=== PATIENT | female | born 1955 | race Caucasian/White ===

== ENCOUNTER 2020-03-07 11:03 | Day surgery (SDC) | payer MEDICARE, SELFPAY ==
[2020-03-02 11:00] VITALS: BMI 35.1
--- NOTE | 2020-03-06 12:45 | HO.ANESPROP2 ---
Documented by User: Elisa Collins 03/06/20 12:45 HPI - Anesthesia Eval Consult details Narrative: 64yo F for Colonoscopy PMFSH Past Medical History Medical History Anxiety disorder Arthritis Asthma Depression Elevated cholesterol GERD (gastroesophageal reflux disease) History of diverticulitis HTN (hypertension) Hx of gout Surgical History Surgical History H/O colonoscopy History of colectomy Hx of appendectomy Hx of bilateral oophorectomy Hx of ovarian cystectomy Social History Social History Smoking Status: Current every day smoker Packs Per Day: 0.5 Cigarettes Per Day: 10.0 Smoked in Last 30 Days: Yes Advance Directives Information Provided: No Meds Allergies Allergy/AdvReac Type Severity Reaction Status Date / Time ondansetron [From ZOFRAN] Allergy Severe HIVES Verified 03/02/20 11:06 codeine [Codeine] AdvReac Intermediate UPSET Verified 03/02/20 11:06 STOMACH Penicillins AdvReac Intermediate UPSET Verified 03/02/20 11:06 STOMACH Home Medications Medication Instructions Recorded Confirmed Type albuterol sulfate 2 puff PO Q4-6H PRN 03/02/20 03/02/20 History atorvastatin 1 tab PO BEDTIME 03/02/20 03/02/20 History bupropion HCl 1 tab PO BID 03/02/20 03/02/20 History fluticasone furoate-vilanterol 1 puff PO DAILY 03/02/20 03/07/20 History [Breo Ellipta] lisinopril 1 tab PO DAILY 03/02/20 03/02/20 History omeprazole 1 cap PO DAILY 03/02/20 03/02/20 History sertraline 2 tab PO DAILY 03/02/20 03/02/20 History sucralfate 1 tab PO BID 03/02/20 03/02/20 History Exam Exam Date and Time: March 06, 2020 1245 Height,Weight and Vital Signs: Height 5 ft 2 in Weight 87.09 kg Assessment and Plan Assessment Anesthesia Assessment: Chart Reviewed Documented by User: Angely Mackenzie 03/07/20 11:44 PMFSH Past Medical History Medical History Anxiety disorder Arthritis Asthma Depression Elevated cholesterol GERD (gastroesophageal reflux disease) History of diverticulitis HTN (hypertension) Hx of gout Surgical History Surgical History H/O colonoscopy History of colectomy Hx of appendectomy Hx of bilateral oophorectomy Hx of ovarian cystectomy Social History Social History Smoking Status: Current every day smoker Packs Per Day: 0.5 Cigarettes Per Day: 10.0 Smoked in Last 30 Days: Yes Advance Directives Information Provided: No Meds Allergies Allergy/AdvReac Type Severity Reaction Status Date / Time ondansetron [From ZOFRAN] Allergy Severe HIVES Verified 03/02/20 11:06 codeine [Codeine] AdvReac Intermediate UPSET Verified 03/02/20 11:06 STOMACH Penicillins AdvReac Intermediate UPSET Verified 03/02/20 11:06 STOMACH Home Medications Medication Instructions Recorded Confirmed Type albuterol sulfate 2 puff PO Q4-6H PRN 03/02/20 03/02/20 History atorvastatin 1 tab PO BEDTIME 03/02/20 03/02/20 History bupropion HCl 1 tab PO BID 03/02/20 03/02/20 History fluticasone furoate-vilanterol 1 puff PO DAILY 03/02/20 03/07/20 History [Breo Ellipta] lisinopril 1 tab PO DAILY 03/02/20 03/02/20 History omeprazole 1 cap PO DAILY 03/02/20 03/02/20 History sertraline 2 tab PO DAILY 03/02/20 03/02/20 History sucralfate 1 tab PO BID 03/02/20 03/02/20 History
[2020-03-07] MEDS: Lactated Ringers 1,000 ML 100 ML IVCONT (11:39)
[2020-03-07 11:46] VITALS: BP 158/84; PULSE 76; RESP 18; TEMP 36.5
--- NOTE | 2020-03-07 11:57 | MHC.SHP ---
Pre-Procedural Eval Section A The History & Physical has been completed within 30 days and I have reviewed it.: No Section B Chief Complaint: Screening Details of Present Illness: Colon cancer screening, hx of colon polyps Relevant Social History: Tobacco Use Present Medications: see Short Stay Collaborative assessment Medical History: Significant History (Depression. Hypertension. Hypercholesterolemia. Anxiety. Asthma. Gout. ) History of Previous Operations: Relevant previous surgery/procedure and date(s) (ovarian cyst resection appendectomy laparoscopic sigmoid colectomy 2008 oopherectomy b/l elbow surgery for tennis elbow wisdom teeth extraction excision of cyst (multiple) over 5yrs [address] Rockwell?- colonoscopy ) Allergies: Allergies Allergy/AdvReac Type Severity Reaction Status Date / Time ondansetron [From ZOFRAN] Allergy Severe HIVES Verified 03/02/20 11:06 codeine [Codeine] AdvReac Intermediate UPSET Verified 03/02/20 11:06 STOMACH Penicillins AdvReac Intermediate UPSET Verified 03/02/20 11:06 STOMACH Review of Systems Sugical H&P ROS: Negative: Constitution, Cardiovascular, Respiratory and Gastrointestinal Exam Surgical H&P Exam: Normal: Heart, Normal: Lungs, Normal: Extremities and Normal: Abdomen Plan Diagnosis/Plan: Unchanged Patient has been examined and remains a candidate for the planned procedure
--- NOTE | 2020-03-07 12:11 | P.BOP_ITS ---
Brief Operative Note Date of procedure: 03/07/20 Pre-op diagnosis: colon cancer screening, history of colon polyps Post-op diagnosis: other (Colon polyps, diverticulosis, hemorrhoids) Procedure: COLONOSCOPY TILL CECUM WITH BIOPSIES Consent: Indications for the procedure and potential complications of bleeding, perforation, reaction to medications and missed diagnosis were discussed with the patient and informed consent was obtained. Instrument: Olympus PCF H 190 L variable stiffness pediatric colonoscope Monitoring: Vital signs and clinical assessment, intermittent blood pressure monitoring, continuous EKG monitoring, Pulse oximetry and Carbon Dioxide monitoring were done throughout the procedure. Colon withdrawl time was 18 minutes. Procedure: The patient was placed in the left lateral decubitis position and pre-procedure medications were administered. After a digital rectal examination of the ano-rectum, the video colonoscope was inserted into the rectum and advanced through the colon to the cecum. The colonoscope was slowly withdrawn in a retrograde panoramic fashion and the colon mucosa was carefully examined including a retroflexed view of the rectum. Findings and interventions are described below. Procedure Difficulty: Without difficulty Findings: Terminal Ileum: Not evaluated Cecum: Nodular appearing mucosa in the cecum without recurrent polyps - random biopsies were obtained. Ascending Colon: Normal Transverse Colon: Normal Descending Colon: Moderate diverticulosis Sigmoid Colon: Moderate diverticulosis Rectum: A few diminutive polyps, 2 were removed by cold biopsy. Ano-rectum: Moderate internal hemorrhoids Colon preparation: Good after copious irrigation Impression and Post Procedure Diagnosis: Colonoscopy Findings: Two diminutive polyps removed Nodular appearing mucosa in the cecum without recurrent polyps - random biopsies were obtained. Moderate diverticulosis seen in the left colon Moderate hemorrhoids on retroflexed exam. Plan: Await pathology results Patient has an appointment on 05/01/20 in the [facility] with Mary Jane Farrell-. Repeat Colonoscopy interval based on path results - in 1-2 years if polyps are adenomatous and 5 years if polyps are hyperplastic. She will need surgery if cecal biopsies showe presence of adenomatous tissue. Above findings were reviewed with the patient and colon polyps and diverticulosis handouts were given in the discharge area Surgeon: Haim Dueñas MD Anesthesia: MAC (MILLER [place] & Dr Weiss) Interactive Media Director: Bernardo Farris Estimated blood loss (mL): 0 Pathology: other (A. Cecum, B. Rectal polyps) Condition: stable Disposition: PACU
[2020-03-07 12:54] VITALS: BP 120/64; PULSE 64; RESP 16; TEMP 36.6; O2SAT 96
[2020-03-07 13:14] VITALS: BP 125/67; PULSE 58; RESP 17; TEMP 36.6; O2SAT 94
== END 2020-03-07 14:19 | disposition home or self-care (01) ==
PROVIDERS: PCP Internal Medicine; Visit Provider Internal Medicine Gastroenterology
PROC: 0DJD8ZZ Inspection of Lower Intestinal Tract, Via Natural or Artificial Opening Endoscopic (ICD-10-PCS; CPT 45378; principal; 2020-03-07 11:40)
DX: Z12.11 Encounter for screening for malignant neoplasm of colon (principal); Z86.010 Personal history of colon polyps; K63.5 Polyp of colon; K62.1 Rectal polyp; K57.30 Diverticulosis of large intestine without perforation or abscess without bleeding; K64.8 Other hemorrhoids; K21.9 Gastro-esophageal reflux disease without esophagitis; I10 Essential (primary) hypertension; E78.00 Pure hypercholesterolemia, unspecified; J45.909 Unspecified asthma, uncomplicated; Z79.51 Long term (current) use of inhaled steroids; Z79.899 Other long term (current) drug therapy; Z88.0 Allergy status to penicillin; Z88.8 Allergy status to other drugs, medicaments and biological substances; F17.210 Nicotine dependence, cigarettes, uncomplicated
CPT/HCPCS: 45380; 88305; J2250

== ENCOUNTER 2020-04-05 11:42 | Outpatient (REF) | payer MEDICARE, SELFPAY ==
--- NOTE | 2020-04-05 11:53 | XR_ITS ---
EXAMINATION: XR FOOT, LEFT CLINICAL INFORMATION: Left foot pain COMPARISON: None TECHNIQUE: AP, lateral, and oblique views of the left foot. FINDINGS: There is no acute or healing fracture, dislocation, destructive process. There is posterior calcaneal spur with some mineralization in the region of distal Achilles. The retrocalcaneal recess is preserved. There is dorsal spurring talonavicular region. The medial navicular is elongated. The midfoot and forefoot shows no focal joint narrowing or erosive change. There is some benign coarse periarticular mineralization adjacent to the plantar medial base fourth toe proximal phalanx. There are some linear mineralization in region of intraosseous soft tissues and/or flexor tendon. XR/XR foot LT min 3V IMPRESSION: 1. No acute or healing fracture. 2. Spurring at Achilles insertion posterior calcaneus. 3. Dorsal spurring talonavicular region. 4. Benign mineralization in region of flexor tendon and periarticular fourth MTP. No joint narrowing or erosive change.
== END 2020-04-05 11:43 | disposition home or self-care (01) ==
LOC: HO.XRAY 11:42
PROVIDERS: PCP Internal Medicine; Visit Provider Internal Medicine
DX: M79.672 Pain in left foot (principal)
CPT/HCPCS: 73630

== ENCOUNTER 2020-04-20 13:16 | Outpatient (REF) | payer MEDICARE, MEDICAID, SELFPAY ==
--- NOTE | 2020-04-20 13:21 | US_ITS ---
EXAMINATION: DUPLEX DOPPLER EVALUATION OF THE ARTERIAL SYSTEM LEFT LOWER EXTREMITY CLINICAL INFORMATION: Peripheral vascular disease. COMPARISON: None TECHNIQUE: Real-time ultrasound and Doppler techniques (integrating B-mode 2D vascular images, Doppler spectral analysis and color flow Doppler imaging) were utilized to interrogate the left lower extremity arterial system. FINDINGS: Left common femoral artery has a peak systolic velocity of 166 cm/s with a triphasic waveform. Proximal profunda femoral artery has a peak systolic velocity of 85 cm/s with a biphasic waveform. Proximal superficial femoral artery has a peak systolic velocity of 127 cm/s with a biphasic waveform. Mid superficial femoral artery has a peak systolic velocity of 140 cm/s with a triphasic waveform. The distal superficial femoral artery has a peak systolic velocity of 90 cm/s with a triphasic waveform. The popliteal artery has a triphasic waveform with some spectral broadening and peak systolic velocity of 54 cm/s. Posterior tibial artery has a triphasic waveform with spectral broadening and peak systolic velocity of 123 cm/s. The right common femoral artery has a triphasic waveform and peak systolic velocity of 155 cm/s. Moderate calcified plaque is seen origin of the profunda femoral artery and about the proximal popliteal artery with mild calcified plaque seen elsewhere. US/US arterial duplex LE LT IMPRESSION: Findings consistent with mild peripheral vascular disease down to the level of popliteal artery.
== END 2020-04-20 13:17 | disposition home or self-care (01) ==
LOC: HO.US 13:16
PROVIDERS: PCP Internal Medicine; Visit Provider Internal Medicine
DX: I73.9 Peripheral vascular disease, unspecified (principal)
CPT/HCPCS: 93926

== ENCOUNTER → 2020-05-04 10:51 | Outpatient (BNVA) | payer MEDICARE, SELFPAY | PROVIDERS: PCP Internal Medicine; Visit Provider Surgery Vascular Surgery | DX: M79.672 Pain in left foot (principal); I73.9 Peripheral vascular disease, unspecified; I83.12 Varicose veins of left lower extremity with inflammation | CPT/HCPCS: 99212 ==

== ENCOUNTER 2020-05-22 10:17 | Outpatient (REF) | payer MEDICARE, SELFPAY ==
--- NOTE | 2020-05-22 | US_ITS ---
EXAMINATION: RIGHT and LEFT LOWER EXTREMITY VENOUS ULTRASOUND (Reflux Exam) CLINICAL INDICATION: leg pain and varicose veins. COMPARISON: None. TECHNIQUE: Color flow triplex imaging and compression Doppler was performed to evaluate both the deep and the superficial systems bilaterally. To evaluate the superficial system, the examination was performed in the upright position. Color-flow Doppler ultrasound and compression ultrasound were utilized. In addition, maneuvers were utilized to demonstrate reflux. FINDINGS: 1. DEEP VENOUS ULTRASOUND OF THE RIGHT LOWER EXTREMITY: Respiratory variation, normal compression and augmented flow are noted in the right common femoral vein as well as the right popliteal vein and there is no evidence of deep venous thrombosis at these locations. There is no evidence of reflux in the deep system in either the common femoral vein or the popliteal vein. There is no evidence of a Villalobos's cyst. 2. SUPERFICIAL ULTRASOUND WITH DOPPLER OF RIGHT LOWER EXTREMITY: The right great saphenous vein at the saphenofemoral junction measures 6 mm, at the mid thigh 3 mm, pkikv-ith-bmfm 3 mm, eavmi-saq-mvfy 2 mm, at mid calf 2 mm and at the ankle measures 2 mm. There is reflux in the right greater saphenous vein measuring 2 seconds at the mid calf. The right small saphenous vein measures 2-3 mm and shows no reflux. There is a small varicose vein in the mid calf that measures 1 mm and demonstrates 1.3 seconds reflux. 3. DEEP VENOUS ULTRASOUND OF THE LEFT LOWER EXTREMITY: Respiratory variation, normal compression and augmented flow are noted in the left common femoral vein as well as the left popliteal vein and there is no evidence of deep venous thrombosis at these locations. There is no evidence of reflux in the deep system in either the common femoral vein or the popliteal vein. . There is no evidence of a Villalobos's cyst. 4. SUPERFICIAL ULTRASOUND WITH DOPPLER OF LEFT LOWER EXTREMITY: Left great saphenous vein at the saphenofemoral junction measures 5 mm, at the mid thigh 3 mm, hjxpg-rlq-euds 3 mm, tevrp-nfi-xdpb 2 mm, at mid calf 2 mm and at the ankle measures 2 mm. There is reflux in the left greater saphenous vein below the knee measuring greater than 2.5 seconds. The left small saphenous vein measures 2-3 mm and shows no reflux. US/US venous duplex LE BI IMPRESSION: 1. No evidence of reflux or thrombus in the common femoral veins or popliteal veins bilaterally. 2. Bilateral greater saphenous vein reflux.
== END 2020-05-22 10:18 | disposition home or self-care (01) ==
LOC: HO.US 10:17
PROVIDERS: Visit Provider Surgery Vascular Surgery
DX: I83.893 Varicose veins of bilateral lower extremities with other complications (principal)
CPT/HCPCS: 93970

== ENCOUNTER → 2020-06-06 09:56 | Outpatient (BNVA) | payer MEDICARE, SELFPAY | PROVIDERS: PCP Internal Medicine; Visit Provider Surgery Vascular Surgery | DX: I83.12 Varicose veins of left lower extremity with inflammation (principal) | CPT/HCPCS: Q3014 ==

== ENCOUNTER → 2020-06-12 15:18 | Outpatient (BNVA) | payer MEDICARE, SELFPAY | PROVIDERS: PCP Internal Medicine; Visit Provider Internal Medicine Gastroenterology | CPT/HCPCS: Q3014 ==

== ENCOUNTER 2020-08-30 10:33 | Outpatient (REF) | payer MEDICARE, SELFPAY ==
[2020-08-30 11:34] LABS: Mean Corpuscular HGB Conc 35.1 g/dl (31.0-35.0); Monocytes Absolute Auto 0.5 X10*3/uL (0.1-1.2)
[2020-08-30 11:36] LABS: Basophils Percent Auto 0.4 % (0-2); Eosinophils Absolute Auto 0.1 X10*3/uL (0.0-0.4); Eosinophils Percent Auto 1.2 % (0-4); Hemoglobin 15.1 g/dl (12.0-16.0); Imm Gran Abs Auto 0.03 X10*3/uL (0.00-0.03); Imm Gran Pct Auto 0.4 % (0.0-0.4); Lymphocytes Absolute Auto 1.9 X10*3/uL (1.2-4.9); Mean Corpuscular Hemoglobin 29.5 pg (27.0-33.0); Mean Platelet Volume 9.9 fL (9.4-12.3); Platelet Count 151 X10*3/uL (160-400); Red Blood Count 5.12 X10*6/uL (4.20-5.50); Red Cell Distribution Width 13.8 % (11.0-16.0); White Blood Count 8.5 X10*3/uL (4.8-10.8)
[2020-08-30 12:20] LABS: Alanine Aminotransferase 15 U/L (0-31); Albumin Level 4.3 g/dL (3.5-5.0); Alkaline Phosphatase 93 U/L (39-117); Anion Gap 13 (12-20); Aspartate Amino Transferase 15 U/L (5-31); Bilirubin Total 0.9 mg/dL (0.0-1.0); Blood Urea Nitrogen 16 mg/dL (9-16); Calcium 9.7 mg/dL (8.4-10.2); Carbon Dioxide 25 mmol/L (22-29); Chloride 105 mmol/L (96-108); Cholesterol 239 mg/dL; Estimated Glomerular Filt Rate > 60; Glucose Random 98 mg/dL (60-115); HDL Cholesterol 35 mg/dL; LDL Cholesterol Calculated 164 mg/dl; Potassium 4.1 mmol/L (3.3-5.1); Sodium 139 mmol/L (135-145); Total Protein 7.3 g/dL (6.5-8.0); Triglycerides 203 mg/dL
[2020-08-30 12:41] LABS: Free T4 (Free Thyroxine) 0.83 ng/dL (0.71-1.85); Thyroid Stimulating Hormone 1.37 uIU/mL (0.32-4.0); Vitamin D 25-OH Total 16.2 ng/mL (>30)
[2020-08-30 12:55] LABS: Folate 5.6 ng/mL (> or = 4.0); Vitamin B12 396 pg/mL (200-900)
== END 2020-08-30 10:34 | disposition home or self-care (01) ==
LOC: HO.LAB 10:33
PROVIDERS: PCP Internal Medicine; Visit Provider Internal Medicine
DX: E78.00 Pure hypercholesterolemia, unspecified (principal); I10 Essential (primary) hypertension
CPT/HCPCS: 36415; 80053; 80061; 82306; 82607; 82746; 84439; 84443; 85025

== ENCOUNTER 2021-06-01 15:51 | Outpatient (REF) | payer MEDICARE, SELFPAY ==
--- NOTE | ~2021-06-01 | CT_ITS ---
EXAMINATION: CT CHEST SCREENING CLINICAL INFORMATION: Current smoker. COMPARISON: Previous chest CT June 2017 and chest and left rib x-rays September 2019 TECHNIQUE: Multidetector volumetric CT imaging of the chest is performed without contrast using low dose technique. Additional 2D coronal and sagittal reformatted images and axial 3D maximum intensity projection (MIP) images are generated on the CT workstation. This CT examination was performed using dose optimization techniques as appropriate, variously including the following: *Automated exposure control *Adjustment of mA and/or kV according to patient size (this includes techniques or standardized protocols for targeted exams where dose is matched to indication/reason for exam; i.e. extremities or head) *Use of iterative reconstruction technique DLP: 67 mGy-cm FINDINGS: LUNGS: The 2 small left upper lobe nodules axial image 194 and 74 series 5 are stable. The lungs are otherwise clear. No new pulmonary nodule is seen. There is evidence of emphysema. No endobronchial or endotracheal lesion is seen. MEDIASTINUM: There is coronary artery calcification. The mediastinum is otherwise normal. PLEURA: There is no pleural effusion. No pleural mass or thickening. AXILLA: No lymphadenopathy. UPPER ABDOMEN: The spleen is not completely imaged but may be prominent. OSSEOUS STRUCTURES: There are degenerative changes of the spine. CT/CT lung screening IMPRESSION: Emphysema. Stable small pulmonary nodules. Coronary artery calcification. ASSESSMENT: Lung-RADS category 2: Benign RECOMMENDATION: Annual low-dose chest CT follow-up recommended.
== END 2021-06-01 15:52 | disposition home or self-care (01) ==
LOC: HO.CT 15:51
PROVIDERS: PCP Internal Medicine; Visit Provider Physician Assistant Medical
DX: Z12.2 Encounter for screening for malignant neoplasm of respiratory organs (principal); Z87.891 Personal history of nicotine dependence
CPT/HCPCS: 71271

== ENCOUNTER → 2021-06-08 11:51 | Outpatient (BNVA) | payer MEDICARE, SELFPAY | PROVIDERS: PCP Internal Medicine; Visit Provider Physician Assistant Medical | DX: Z87.891 Personal history of nicotine dependence (principal) | CPT/HCPCS: G0296 ==

== ENCOUNTER 2021-07-04 10:29 | Outpatient (REF) | payer MEDICARE, SELFPAY ==
--- NOTE | ~2021-07-04 | MM_ITS ---
EXAMINATION: BONE DENSITOMETRY CLINICAL INDICATION: Other specified disorders of bone density and structure. COMPARISON: Previous BD dated 08/06/2016 and baseline BD dated 03/11/2013. TECHNIQUE: Using a [employer] DXA System (software version: 13.1) manufactured by [employer], dual-energy x-ray absorptiometry was performed of the lumbar spine and left hip. The images are of good technical quality. Summary results are attached. FINDINGS: AP SPINE L1-L4: Current: BMD 1.417 g/cm2, Z-score 2.9, T-score 2.0, normal, 5.1% increase from previous, 4.8% increase from baseline (<5% change is not significant). Prior: BMD 1.348 g/cm2. Baseline: BMD 1.352 g/cm2. LEFT FEMUR, NECK: Current: BMD 1.241 g/cm2, Z-score 2.6, T-score 1.5, normal. Prior: BMD 1.257 g/cm2. Baseline: BMD 1.334 g/cm2. LEFT FEMUR, TOTAL: Current: BMD 1.248 g/cm2, Z-score 2.7, T-score 1.9, normal, 4.2% decrease from previous, 6.9% decrease from baseline (<5% change is not significant). Prior: BMD 1.303 g/cm2. Baseline: BMD 1.341 g/cm2. IDENTIFIED RISK FACTORS: Early menopause, secondary osteoporosis, tobacco use (current smoker), bilateral oophorectomy. HISTORY OF FRACTURE: None listed. MEDICATIONS: None listed. MM/XR DEXA axial skeleton IMPRESSION: 1. DIAGNOSIS: Normal bone density based on the lowest T-score value of 1.5 in the femoral neck applying World Health Organization criteria. 2. 10-YEAR FRACTURE RISK PREDICTION, FRAX: According to the guidelines, FRAX calculation should only be performed on patients in the osteopenia bone density category. Therefore, FRAX was not performed on this patient. 3. Treatment Recommendations: NOF guidelines recommend consideration for treatment in postmenopausal women and men age 50 and older presenting with the following: -A hip or vertebral (clinical or morphometric) fracture. -T-score less than or equal to -2.5 at the femoral neck or spine after appropriate evaluation to exclude secondary causes. -Low bone mass at the hip or spine and a 10-year fracture probability by FRAX of greater than or equal to 3% for hip fracture or greater than or equal to 20% for major osteoporotic fracture based on the [place] adapted WHO algorithm. 4. Other Recommendations: All treatment decisions require clinical judgment and consideration of individual patient factors, including patient preferences, comorbidities, previous drug use, risk factors not captured in the FRAX model (e.g. frailty, falls, vitamin D deficiency, increased bone turnover, interval significant decline in bone density) and possible under or overestimation of fracture risk by FRAX. FUTURE SCAN RECOMMENDATION: People with diagnosed cases of osteoporosis or at high risk for fracture should have regular bone mineral density tests. For patients eligible for Medicare, routine testing is allowed once every 2 years. The testing frequency can be increased to one year for patients who have rapidly progressing disease, those who are receiving or discontinuing medical therapy to restore bone mass, or have additional risk factors.
--- NOTE | ~2021-07-04 | MM_ITS ---
EXAMINATION: MM SCREENING DIGITAL BREAST TOMOSYNTHESIS, BILATERAL CLINICAL INFORMATION: Screening. Asymptomatic. The lifetime risk of breast cancer based on the Tyrer-Cuzick Model is 2%. COMPARISON: Mammography: 05/14/2018, 07/04/2016 TECHNIQUE: Digital breast tomosynthesis is performed in both the craniocaudal and mediolateral oblique views along with computer-aided detection (CAD). Synthesized 2D images are generated from the tomosynthesis. FINDINGS: There are scattered areas of fibroglandular density (ACR BI-RADS breast composition Category b). Parenchymal pattern is similar to prior exams. There is no developing density or interval mass or architectural abnormality. Scattered benign calcifications bilateral central and anterior breasts are slightly increased in number on both sides. There is no focal grouping or ductal distribution or pleomorphic types. The axilla and skin contours are unremarkable. There are no significant changes. MM/MM tomosynthesis screening BI IMPRESSION: No significant changes from prior exams. ASSESSMENT: BI-RADS 2: Benign RECOMMENDATION: Routine annual mammography screening. This patient's information was entered into a reminder system with a target due date for their next mammogram.
== END 2021-07-04 10:30 | disposition home or self-care (01) ==
LOC: HO.MAMMO 10:29
PROVIDERS: PCP Internal Medicine; Visit Provider Internal Medicine
DX: Z12.31 Encounter for screening mammogram for malignant neoplasm of breast (principal); Z13.820 Encounter for screening for osteoporosis; M85.80 Other specified disorders of bone density and structure, unspecified site; Z78.0 Asymptomatic menopausal state; F17.200 Nicotine dependence, unspecified, uncomplicated
CPT/HCPCS: 77063; 77067; 77080

== ENCOUNTER → 2021-08-13 09:28 | Outpatient (REF) | payer MEDICARE, SELFPAY ==
--- NOTE | 2021-08-13 09:34 | CA_ITS ---
Acquisition Time: 2021-08-13 09:42:09 Total Exercise Time: 00:05:46 Test Indications: CP Medications: SEE CHART Protocol: MARCE Max HR: 122 BPM 79% of Pred: 153 BPM Max BP: 202/082 mmHG Max Work Load: 7.0 METS Exercise stress test with exercise 5 min 46 sec of Marce protocol, achieving 80% MPHR, with moderate shortness of breath, no chest discomfort, with isolated PACs, with hypertensive response to exercise with max BP 202/82, with nondiagnostic EKG for ischemia due to suboptimal heart rate however no ischemic changes noted at acheived workload. In recovery her breathing quickly normalized and BP returned to baseline. Test reviewed with Dr Senior. Msg sent to Dr Delgado with report and recommendation for pharmacological nuclear stress test if further evaluation for ischemia is needed. Referred By: Prashant Delgado Overread By: DAYANA IRIZARRY
[2021-08-13 09:45] LABS: MANUAL DIFF FLAG NO
[2021-08-13 10:03] LABS: Basophils Percent Auto 0.5 % (0-2); Eosinophils Absolute Auto 0.1 X10*3/uL (0.0-0.4); Eosinophils Percent Auto 1.1 % (0-4); Hematocrit 44.4 % (37.0-47.0); Hemoglobin 15.8 g/dl (12.0-16.0); Imm Gran Abs Auto 0.03 X10*3/uL (0.00-0.03); Imm Gran Pct Auto 0.3 % (0.0-0.4); Lymphocytes Absolute Auto 1.6 X10*3/uL (1.2-4.9); Lymphocytes Percent Auto 18.2 % (20-40); Mean Corpuscular HGB Conc 35.6 g/dl (31.0-35.0); Mean Corpuscular Hemoglobin 29.9 pg (27.0-33.0); Mean Corpuscular Volume 83.9 fL (80.0-98.0); Mean Platelet Volume 9.5 fL (9.4-12.3); Monocytes Absolute Auto 0.5 X10*3/uL (0.1-1.2); Neutrophils Absolute Auto 6.5 x10*3/uL (2.0-8.3); Neutrophils Percent Auto 73.9 % (45-73); Platelet Count 161 X10*3/uL (160-400); Red Blood Count 5.29 X10*6/uL (4.20-5.50); Red Cell Distribution Width 14.5 % (11.0-16.0); White Blood Count 8.8 X10*3/uL (4.8-10.8)
[2021-08-13 10:22] LABS: Alanine Aminotransferase 18 U/L (0-31); Albumin Level 4.3 g/dL (3.5-5.0); Alkaline Phosphatase 92 U/L (39-117); Anion Gap 11 (12-20); Aspartate Amino Transferase 16 U/L (5-31); Bilirubin Total 0.7 mg/dL (0.0-1.0); Blood Urea Nitrogen 13 mg/dL (9-16); Carbon Dioxide 25 mmol/L (22-29); Chloride 105 mmol/L (96-108); Cholesterol 201 mg/dL; Estimated Glomerular Filt Rate > 60; Glucose Random 104 mg/dL (60-115); HDL Cholesterol 38 mg/dL; LDL Cholesterol Calculated 120 mg/dl; Potassium 4.1 mmol/L (3.3-5.1); Sodium 137 mmol/L (135-145); Total Protein 7.4 g/dL (6.5-8.0); Triglycerides 218 mg/dL
[2021-08-13 10:45] LABS: Free T4 (Free Thyroxine) 0.99 ng/dL (0.71-1.85); Thyroid Stimulating Hormone 2.39 uIU/mL (0.32-4.0)
[2021-08-13 11:44] LABS: Folate 6.8 ng/mL (> or = 4.0); Vitamin B12 479 pg/mL (200-900)
== END ==
LOC: HO.CARD 09:28
PROVIDERS: PCP Internal Medicine; Visit Provider Internal Medicine
DX: E78.00 Pure hypercholesterolemia, unspecified (principal); R07.9 Chest pain, unspecified
CPT/HCPCS: 36415; 80053; 80061; 82306; 82607; 82746; 84439; 84443; 85025; 93017

== ENCOUNTER → 2021-10-25 10:06 | Outpatient (REF) | payer MEDICARE, SELFPAY ==
--- NOTE | ~2021-10-25 | NM_ITS ---
Myocardial perfusion study Indication: Chest pain to evaluate for myocardial ischemia Technique: The patient was brought in for a Lexiscan perfusion study on 10/25/2021. Patient performed low-level exercise and was injected 0.4 mg of Lexiscan intravenously. Within a minute of injection, 30 mCi of sestamibi was given intravenously. Images were obtained using the SPECT gamma camera interlaced with the gating device. Images were obtained in supine position. Resting perfusion study was performed on 10/26/2021. Patient was administered 30 mCi of sestamibi intravenously at rest. Images were then obtained in supine position. Images obtained with and without CT attenuation. Total DLP 116 mGy-cm. Images were processed with the software and compared side to side in short axis, horizontal long axis and vertical long axis views. Findings: The stress perfusion study showed non attenuated images show very small area of minimally reduced uptake are thinning of the distal anterior wall of the LV myocardium. Remainder of the LV myocardium is normally perfused. Attenuation corrected images show normal uptake of radiotracer in all segments of LV myocardium. Suggestion of left ventricle hypertrophy. The gated study shows normal LV systolic function with calculated LVEF of 61%. LV cavity is normal in size. The gated study shows normal systolic wall thickening and contraction of segments. Resting study shows non attenuated images show normal uptake of radiotracer in all segments of LV myocardium. Gating at rest reveals normal systolic wall motion with visually estimated ejection fraction at greater than 60%. The findings are consistent with no clear reversible defect suggestive of ischemia. Normal myocardial perfusion. NM/NM cardiolite stress test Impression: 1. Myocardial perfusion imaging study shows normal myocardial perfusion 2. Gated LVEF is 61% 3. Transient ischemic dilatation not present EKG is nondiagnostic for ischemia
--- NOTE | 2021-10-25 10:08 | CA_ITS ---
Acquisition Time: 2021-10-25 10:31:55 Total Exercise Time: 00:02:00 Test Indications: CHEST PAIN Medications: LISINOPRIL ASA Protocol: LEXISCAN Max HR: 103 BPM 67% of Pred: 153 BPM Max BP: 146/090 mmHG Max Work Load: 1.6 METS Pharmacological stress test with Lexiscan injection, while walking slow on treadmill without anginal symptoms, without arrythmia, with normotensive resposne to injection, with nondiagnostic EKG for ischemia. In recovery she reported abdominal cramping and was treated with Aminophylline 75mg IVP to reverse Lexiscan with resolution of symptom. Nuclear images pending. Test reviewed with Dr Hercules. Referred By: Prashant Delgado Overread By: DAYANA IRIZARRY
== END ==
LOC: HO.CARD 10:06
PROVIDERS: Visit Provider Internal Medicine
DX: R07.9 Chest pain, unspecified (principal)
CPT/HCPCS: 78452; 93017; A9500; J0280; J2785

== ENCOUNTER 2021-11-12 09:46 | Emergency (ER) | payer MEDICARE, OTHER, SELFPAY ==
--- NOTE | ~2021-11-12 | CT_ITS ---
EXAMINATION: CT ABDOMEN AND PELVIS WITHOUT CONTRAST CLINICAL INFORMATION: Left lower quadrant pain, history of diverticulitis COMPARISON: CT abdomen pelvis 11/27/2017 TECHNIQUE: Multidetector volumetric imaging was performed from the superior aspect of the liver through the pubic symphysis. Sagittal and coronal reformatted images were obtained on the technologist's workstation. This CT examination was performed using dose optimization techniques as appropriate, variously including the following: *Automated exposure control *Adjustment of mA and/or kV according to patient size (this includes techniques or standardized protocols for targeted exams where dose is matched to indication/reason for exam; i.e. extremities or head) *Use of iterative reconstruction technique DLP: 712 mGy-cm FINDINGS: LUNG BASES: Mitral annular calcifications. ABDOMINAL AND PELVIC WALL: Unremarkable. LIVER AND BILIARY TREE: Hepatomegaly, measuring 19.6 cm in span. GALLBLADDER: Unremarkable. PANCREAS: Unremarkable. SPLEEN: Splenomegaly measuring 14.8 cm in span. ADRENAL GLANDS: Unremarkable. KIDNEYS AND URETERS: 3 mm shifting stone is noted in the proximal left ureter with mild proximal rectosigmoid surgical anastomosis. GASTROINTESTINAL TRACT: Colonic diverticulosis with wall thickening and pericolonic inflammatory fat stranding involving the distal descending and proximal sigmoid colon compatible with acute diverticulitis. No extraluminal air to suggest perforation. No organized fluid collection to suggest abscess. VASCULAR: Unremarkable. LYMPH NODES/PERITONEUM: Prominent retroperitoneal nodes measuring up to 0.8 cm short axis diameter in a left periaortic node, 3:38, not significantly changed from 2019 where it measured 0.7 cm. FREE FLUID: None. BLADDER: Unremarkable. PELVIC VISCERA: Unremarkable. OSSEOUS STRUCTURES: Unremarkable. CT/CT abdomen pelvis wo con IMPRESSION: Colonic diverticulosis with wall thickening and pericolonic inflammatory fat stranding involving the distal descending and proximal sigmoid colon compatible with acute diverticulitis. No perforation or abscess. Hepatosplenomegaly. Prominent retroperitoneal nodes not significantly changed from 2019.
[2021-11-12 10:33] VITALS: BP 152/77; PULSE 62; RESP 18; TEMP 36.2; O2SAT 96; BMI 32.9
[2021-11-12 11:38] LABS: MANUAL DIFF FLAG NO
[2021-11-12 11:40] LABS: Basophils Percent Auto 0.4 % (0-2); Eosinophils Absolute Auto 0.1 X10*3/uL (0.0-0.4); Eosinophils Percent Auto 0.8 % (0-4); Hematocrit 39.7 % (37.0-47.0); Hemoglobin 14.3 g/dl (12.0-16.0); Imm Gran Abs Auto 0.04 X10*3/uL (0.00-0.03); Imm Gran Pct Auto 0.4 % (0.0-0.4); Lymphocytes Absolute Auto 1.8 X10*3/uL (1.2-4.9); Mean Corpuscular Hemoglobin 30.2 pg (27.0-33.0); Mean Corpuscular Volume 83.8 fL (80.0-98.0); Mean Platelet Volume 9.4 fL (9.4-12.3); Monocytes Absolute Auto 0.7 X10*3/uL (0.1-1.2); Monocytes Percent Auto 6.7 % (2-11); Neutrophils Percent Auto 74.7 % (45-73); Platelet Count 149 X10*3/uL (160-400); Red Blood Count 4.74 X10*6/uL (4.20-5.50); Red Cell Distribution Width 14.1 % (11.0-16.0); White Blood Count 10.7 X10*3/uL (4.8-10.8)
[2021-11-12 11:56] LABS: Alanine Aminotransferase 15 U/L (0-31); Albumin Level 4.1 g/dL (3.5-5.0); Alkaline Phosphatase 95 U/L (39-117); Anion Gap 13 (12-20); Aspartate Amino Transferase 13 U/L (5-31); Bilirubin Total 0.6 mg/dL (0.0-1.0); Blood Urea Nitrogen 12 mg/dL (9-16); Calcium 9.6 mg/dL (8.4-10.2); Carbon Dioxide 24 mmol/L (22-29); Chloride 107 mmol/L (96-108); Creatinine Clr Calc Pharmacy 70.1; Estimated Glomerular Filt Rate > 60; Glucose Random 97 mg/dL (60-115); Lipase 20 U/L (8-78); Potassium 3.9 mmol/L (3.3-5.1); Sodium 140 mmol/L (135-145); Total Protein 7.1 g/dL (6.5-8.0)
--- NOTE | 2021-11-12 13:47 | ED.ABDPAIN ---
HPI - Abdominal Pain General Chief Complaint: Abdominal Pain Stated Complaint: diverticulitis attack Time Seen by Provider: 11/12/21 13:14 Source: patient Mode of arrival: ambulatory Limitations: no limitations History of Present Illness HPI narrative: 65-year-old female with a past medical history of COPD, anxiety and depression, generalized anxiety disorder, hypertension, obesity, varicose veins, and psoriasis who has a history of diverticulitis presents for left lower quadrant abdominal pain for the last week. Patient states she has had a feeling of having to have stools constantly, but has had reduced appetite and small caliber stools for the last week. Nothing dark, tarry, or bloody in her stools. Her left lower quadrant pain is a constant background pain, a 6/10, with intermittent sharp pain. Patient feels bloated. She has been nauseous, she is not nauseous now. She did vomit once 5 days ago Patient has had colon resection for diverticulitis and an appendectomy . Denies chest pain, shortness of breath, dizziness, lightheadedness, fevers, back pain, pelvic pain, vaginal discharge, vaginal bleeding, urinary frequency, or dysuria Related Data Home Medications Medication Instructions Recorded Confirmed albuterol sulfate 90 mcg/actuation 2 puff PO Q4-6H PRN wheezing 03/02/20 08/03/21 aerosol inhaler Previous Rx's Medication Instructions Recorded aspirin 81 mg tablet,delayed 81 mg PO DAILY #30 tabs 04/05/20 release gabapentin 100 mg capsule 100 mg PO BEDTIME #30 caps 04/05/20 lisinopril 20 mg tablet 20 mg PO DAILY #90 tabs 07/28/20 sertraline 100 mg tablet 200 mg PO DAILY #180 tabs 03/17/21 pravastatin 20 mg tablet 20 mg PO BEDTIME #90 tabs 03/26/21 sucralfate 1 gram tablet 1 g PO BID 90 days #180 tabs 05/28/21 fluticasone furoate 100 1 ea PO DAILY #180 ea 06/18/21 mcg-vilanterol 25 mcg/dose inhalation powder (Breo Ellipta) omeprazole 20 mg capsule,delayed 20 mg PO DAILY #90 caps 07/12/21 release bupropion HCl 150 mg 24 hr tablet, 150 mg PO BID #180 tabs 08/15/21 extended release ciprofloxacin HCl 500 mg tablet 500 mg PO BID 7 days #14 tabs 11/12/21 (Cipro) metronidazole 500 mg tablet 500 mg PO Q8H 7 days #21 tabs 11/12/21 Allergies Allergy/AdvReac Type Severity Reaction Status Date / Time ondansetron [From ZOFRAN] Allergy Severe HIVES Verified 08/03/21 11:33 atorvastatin AdvReac Intermediate leg cramps Verified 08/03/21 11:33 codeine [Codeine] AdvReac Intermediate UPSET Verified 08/03/21 11:33 STOMACH Penicillins AdvReac Intermediate UPSET Verified 08/03/21 11:33 STOMACH Review of Systems Constitutional: Denies body ache(s), Denies chills, Denies fatigue, Denies fever(s), Denies malaise and Denies weakness Eyes: Denies diplopia Cardiovascular: Denies chest pain, Denies syncope, Denies leg edema, Denies lightheadedness, Denies Loss of Consciousness, Denies palpitations and Denies dyspnea Respiratory: Denies chest congestion, Denies cough and Denies dyspnea Gastrointestinal: Reports abdominal pain, Denies hematochezia, Denies constipation, Denies diarrhea, Reports nausea and Reports vomiting Genitourinary: Denies abnormal vaginal bleeding, Denies dysuria, Denies pelvic pain, Denies urinary urgency and Denies vaginal discharge Musculoskeletal: Reports no additional musculoskeletal complaints and Denies back pain Skin/Breast: Denies rash Denies confusion, Denies syncope and Denies weakness Psychiatric: Denies anxiety, Denies confusion and Denies depression Endocrine: Denies fatigue and Denies palpitations PMFSH Past Medical History Medical History Allergic rhinitis Arthritis Asthma COPD (chronic obstructive pulmonary disease) Depression Diverticulosis Elevated cholesterol GERD (gastroesophageal reflux disease) Hemorrhoids Hip pain History of colon polyps History of diverticulitis HTN (hypertension) Hx of gout Obesity (BMI 30-39.9) Peripheral neuropathy Personal history of nicotine dependence Psoriasis Pulmonary nodule Tarsal tunnel syndrome Tobacco abuse Vitamin D deficiency Surgical History History of appendectomy History of colectomy (~2008) History of colonoscopy (~2019) History of elbow surgery (~2011) History of left oophorectomy (~2008) Family History Family History Father Myocardial infarction Mother Lung cancer Maternal Aunt Leukemia Social History Social History (Updated 06/08/21 @ 12:02 by Lizet Campos PA-C) Household Members: Family Housing: House Alcohol intake: never Patient Tobacco Use Status: Current everyday Tobacco user Tobacco use type: Cigarette Cigarette Packs Per Day: 0.5 Years Smoked: onset 14, 1/2ppd x 51 yrs, 25PYH e-Cigarette/Vaping Use: Never Used Second Hand Smoke Exposure: No Advance Directives: No Advance Directives Information Provided: Yes Current occupational status: retired Cognitive needs: No Hearing needs: No Vision needs: No Physical Exam ED Vital Signs: Vital Signs - 24 hr 11/12/21 10:33 Temperature 97.2 F Pulse Rate 62 Respiratory Rate 18 Blood Pressure 152/77 H Pulse Oximetry 96 Oxygen Delivery Method Room Air BMI result Body Mass Index 32.9 Const General: No confusion Nutritional Appearance: well nourished Orientation/consciousness: No confusion Limitations: no limitations Eyes Conjunctivae: conjunctivae normal Pupils: Equal, round and reactive pupils present EOM: EOMs intact bilaterally Neck Neck: Yes full ROM, Yes no lymphadenopathy and Yes supple Resp Effort & Inspection: normal respiratory effort and able to speak in complete sentences Auscultation: clear to auscultation bilaterally, no crackles, no rales, no rhonchi and no wheezes Cardio Rate: regular rate Rhythm: regular rhythm Heart sounds: S1 normal heart sound present and S2 normal heart sound present GI Inspection: Yes Abdominal panniculus present and Yes obesity Palpation (GI): Soft to palpation, Tenderness to palpation present (GI) in the LLQ, Guarding due to palpation present (GI) in the LLQ and not rigid Percussion: Yes normal to percussion Auscultation: normal bowel sounds General: Yes no CVA tenderness Back/Spine/Pelvis Back: no CVA tenderness Skin General skin exam: no rashes or lesions noted Neuro General: No confusion Cranial nerves: Yes Equal, round and reactive pupils present Extrem General: Yes normal to inspection and Yes full ROM Psych Appearance: grossly normal Affect: normal affect Attitude: cooperative Thought process: Normal thought process present Course Course Course Narrative: 65-year-old female presents with 1 week of lower left quadrant pain, with nausea 1 episode of vomiting. Patient has had reduced appetite, no fevers. History of diverticulitis On exam, patient looks uncomfortable, has stable vitals, is afebrile. Patient is obese, abdomen is tender left lower quadrant with guarding. Ordered hematology, chemistry including lipase, urine, COVID test, CT scan. Gave morphine and fluids. Reevaluation(s) Reevaluation #1: Patient has no leukocytosis, chemistry is normal, lipase is 20. Patient has +1 protein and +1 blood in her urine, +RBC, +[address] shows acute diverticulits, no perforation or abscess patient does not have a severe UTI, will treat patient's diverticulitis with ciprofloxacin and Flagyl, the Cipro will also treat for possible urinary tract infection Counseled patient to follow-up with her PCP for her hematuria as she is a smoker, this could be an early sign of bladder cancer. Counseled patient to take her antibiotic starting today, patient tells me she has an appointment with her PCP in 3 days. Gave return precautions of worsening abdominal pain, fevers, vomiting, return to emergency room patient is safe for discharge home Reevaluation #2: CT/CT abdomen pelvis wo con IMPRESSION: ? Colonic diverticulosis with wall thickening and pericolonic inflammatory fat stranding involving the distal descending and proximal sigmoid colon compatible with acute diverticulitis. No perforation or abscess. ? Hepatosplenomegaly. ? Prominent retroperitoneal nodes not significantly changed from 2019. MDM - Abdominal Pain Lab Data Result diagrams: 11/12/21 11:34 11/12/21 11:34 Labs: Lab Results 11/12/21 11/12/21 11/12/21 Range/Units 11:34 11:34 13:56 WBC 10.7 (4.8-10.8) X10*3/uL RBC 4.74 (4.20-5.50) X10*6/uL Hgb 14.3 (12.0-16.0) g/dl Hct 39.7 (37.0-47.0) % MCV 83.8 (80.0-98.0) fL MCH 30.2 (27.0-33.0) pg MCHC 36.0 H (31.0-35.0) g/dl RDW 14.1 (11.0-16.0) % Plt Count 149 L (160-400) X10*3/uL MPV 9.4 (9.4-12.3) fL Immature Gran % (Auto) 0.4 (0.0-0.4) % Neut % (Auto) 74.7 H (45-73) % Lymph % (Auto) 17.0 L (20-40) % Butts % (Auto) 6.7 (2-11) % Eos % (Auto) 0.8 (0-4) % Baso % (Auto) 0.4 (0-2) % Lymph # (Auto) 1.8 (1.2-4.9) X10*3/uL Butts # (Auto) 0.7 (0.1-1.2) X10*3/uL Eos # (Auto) 0.1 (0.0-0.4) X10*3/uL Baso # (Auto) 0.0 (0.0-0.2) X10*3/uL Abs Immat Gran (auto) 0.04 H (0.00-0.03) X10*3/uL Absolute Neuts (auto) 8.0 (2.0-8.3) x10*3/uL Absolute Nucleated RBC 0.000 (0.0-0.012) X10*3/uL Nucleated RBC % (auto) 0.0 (0.0-0.2) /100WBC Sodium 140 (135-145) mmol/L Potassium 3.9 (3.3-5.1) mmol/L Chloride 107 (96-108) mmol/L Carbon Dioxide 24 (22-29) mmol/L Anion Gap 13 (12-20) BUN 12 (9-16) mg/dL Creatinine 0.77 (0.5-1.4) mg/dL Estim Creat Clear Calc 70.1 Estimated GFR > 60 Random Glucose 97 (60-115) mg/dL Calcium 9.6 (8.4-10.2) mg/dL Total Bilirubin 0.6 (0.0-1.0) mg/dL AST 13 (5-31) U/L ALT 15 (0-31) U/L Alkaline Phosphatase 95 (39-117) U/L Total Protein 7.1 (6.5-8.0) g/dL Albumin 4.1 (3.5-5.0) g/dL Lipase 20 (8-78) U/L Urine Color Urine Appearance Urine pH (5.0-8.0) Ur Specific [place] (1.005-1.025) Urine Protein (NEG-TRACE) MG/DL Urine Glucose (UA) (NEG) MG/DL Urine Ketones (NEG) MG/DL Urine Blood (NEG) Urine Nitrite (NEG) Ur Leukocyte Esterase (NEG) Urine RBC (0) /HPF Urine WBC (0-4) /HPF Ur Squamous Epith Cells /LPF Urine Bacteria /LPF COVID-19 (KIM) Negative (Negative) COVID-19 Clin Com See Note 11/12/21 Range/Units 13:57 WBC (4.8-10.8) X10*3/uL RBC (4.20-5.50) X10*6/uL Hgb (12.0-16.0) g/dl Hct (37.0-47.0) % MCV (80.0-98.0) fL MCH (27.0-33.0) pg MCHC (31.0-35.0) g/dl RDW (11.0-16.0) % Plt Count (160-400) X10*3/uL MPV (9.4-12.3) fL Immature Gran % (Auto) (0.0-0.4) % Neut % (Auto) (45-73) % Lymph % (Auto) (20-40) % Butts % (Auto) (2-11) % Eos % (Auto) (0-4) % Baso % (Auto) (0-2) % Lymph # (Auto) (1.2-4.9) X10*3/uL Butts # (Auto) (0.1-1.2) X10*3/uL Eos # (Auto) (0.0-0.4) X10*3/uL Baso # (Auto) (0.0-0.2) X10*3/uL Abs Immat Gran (auto) (0.00-0.03) X10*3/uL Absolute Neuts (auto) (2.0-8.3) x10*3/uL Absolute Nucleated RBC (0.0-0.012) X10*3/uL Nucleated RBC % (auto) (0.0-0.2) /100WBC Sodium (135-145) mmol/L Potassium (3.3-5.1) mmol/L Chloride (96-108) mmol/L Carbon Dioxide (22-29) mmol/L Anion Gap (12-20) BUN (9-16) mg/dL Creatinine (0.5-1.4) mg/dL Estim Creat Clear Calc Estimated GFR Random Glucose (60-115) mg/dL Calcium (8.4-10.2) mg/dL Total Bilirubin (0.0-1.0) mg/dL AST (5-31) U/L ALT (0-31) U/L Alkaline Phosphatase (39-117) U/L Total Protein (6.5-8.0) g/dL Albumin (3.5-5.0) g/dL Lipase (8-78) U/L Urine Color YELLOW Urine Appearance HAZY Urine pH 6.5 (5.0-8.0) Ur Specific [place] 1.025 (1.005-1.025) Urine Protein 1+ H (NEG-TRACE) MG/DL Urine Glucose (UA) NEG (NEG) MG/DL Urine Ketones NEG (NEG) MG/DL Urine Blood 1+ H (NEG) Urine Nitrite NEG (NEG) Ur Leukocyte Esterase NEG (NEG) Urine RBC 5-9 H (0) /HPF Urine WBC 0-2 (0-4) /HPF Ur Squamous Epith Cells 2+ /LPF Urine Bacteria 3+ /LPF COVID-19 (KIM) (Negative) COVID-19 Clin Com Discharge Plan Discharge Clinical Impression: Diverticulitis Patient Disposition: Home, Self-Care Instructions: Diverticulitis (ED), Hematuria (ED) Additional Instructions: follow-up with your primary care provider from today's emergency room visit, On as your scheduled. You do have diverticulitis today, we will start you on the 2 antibiotics. You also have some blood in your urine, please discuss this with your primary care provider, he may want to send you to urology for further testing. Please return to the emergency room if you have sudden severe abdominal pain, fevers, if you are unable to eat, if your vomiting, or for any other new or concerning symptoms Prescriptions: New ciprofloxacin HCl [Cipro] 500 mg tablet 500 mg PO BID 7 Days Qty: 14 0RF metronidazole 500 mg tablet 500 mg PO Q8H 7 Days Qty: 21 0RF No Action lisinopril 20 mg tablet 20 mg PO DAILY Qty: 90 3RF sertraline 100 mg tablet 200 mg PO DAILY Qty: 180 0RF pravastatin 20 mg tablet 20 mg PO BEDTIME Qty: 90 3RF sucralfate 1 gram tablet 1 g PO BID 90 Days Qty: 180 1RF Breo Ellipta 100-25 mcg/dose blister with device 1 ea PO DAILY Qty: 180 3RF omeprazole 20 mg capsule,delayed release(DR/EC) 20 mg PO DAILY Qty: 90 1RF bupropion HCl 150 mg tablet extended release 24 hr 150 mg PO BID Qty: 180 1RF albuterol sulfate 90 mcg/actuation HFA aerosol inhaler 2 puff PO Q4-6H PRN (Reason: wheezing) aspirin 81 mg tablet,delayed release (DR/EC) 81 mg PO DAILY Qty: 30 0RF gabapentin 100 mg capsule 100 mg PO BEDTIME Qty: 30 1RF
[2021-11-12 14:03] LABS: Appearance Urine HAZY; Color Urine YELLOW; Glucose Urine UA NEG (NEG); Leukocyte Esterase Urine NEG (NEG); Nitrite Urine NEG (NEG); PH 6.5 (5.0-8.0); Specific Gravity - Urine 1.025 (1.005-1.025); UACC Culture Trigger NO; Urine Blood 1+ (NEG); Urine Ketones NEG (NEG); Urine Protein 1+ MG/DL (NEG-TRACE)
[2021-11-12 14:23] LABS: COVID-19 Test Negative (Negative)
[2021-11-12] MEDS: Morphine Sulfate 4 MG/ML CARTRIDGE IVPUSH (14:42)
[2021-11-12] MEDS: 0.9 % Sodium Chloride 1,000 ML 999 ML IV (14:42)
[2021-11-12 14:44] LABS: Bacteria Urine 3+ /LPF; Squamous Epithelial Cell Urine 2+ /LPF; WBC Urine 0-2 /HPF (0-4)
== END 2021-11-12 15:41 | disposition home or self-care (01) ==
PROVIDERS: Physician Assistant; Emergency Provider Emergency Medicine Emergency Medical Services; PCP Internal Medicine
DX: K57.32 Diverticulitis of large intestine without perforation or abscess without bleeding (principal); Z20.822 Contact with and (suspected) exposure to COVID-19; R10.32 Left lower quadrant pain; I10 Essential (primary) hypertension; E78.5 Hyperlipidemia, unspecified; F17.200 Nicotine dependence, unspecified, uncomplicated; Z79.02 Long term (current) use of antithrombotics/antiplatelets
CPT/HCPCS: 36415; 74176; 80053; 81001; 83690; 85025; 87635; 96361; 96374; 99283; 99284; J2270

== ENCOUNTER 2023-01-29 11:07 | Outpatient (AMB) | payer MEDICARE, SELFPAY ==
[2023-01-29 11:14] VITALS: BP 156/88; PULSE 78; O2SAT 96; BMI 34.2
--- NOTE | 2023-01-29 11:14 | A.OFFPC_ITS ---
Vital Signs 01/29/23 11:14 Height 5 ft 2 in Weight 187 lb BMI 34.2 BP 156/88 H Blood Pressure Location Lt brachial Position Sitting Pulse 78 Pulse Source Pulse Oximeter Pulse Oximetry (%) 96 Oxygen Delivery Method Room Air Intake Visit Reasons: 3 month f/u Allergies ondansetron [From ZOFRAN] Allergy (Severe, Verified 01/29/23 11:14) HIVES atorvastatin Adverse Reaction (Intermediate, Verified 01/29/23 11:14) leg cramps codeine [Codeine] Adverse Reaction (Intermediate, Verified 01/29/23 11:14) UPSET STOMACH Penicillins Adverse Reaction (Intermediate, Verified 01/29/23 11:14) UPSET STOMACH Medication List - Last Reconciled 01/29/23 by Prashant Delgado MD albuterol sulfate 90 mcg/actuation 2 puffs PO Q4-6H PRN blood pressure monitor (Blood Pressure Kit) As directed bupropion HCl 150 mg PO BID fluticasone furoate-vilanterol 100-25 mcg/dose (Breo Ellipta) 1 ea PO DAILY gabapentin 100 mg PO BEDTIME lisinopril 40 mg PO DAILY 90 days omeprazole 20 mg PO DAILY pravastatin 20 mg PO BEDTIME secukinumab 300 mg subcut Q4W sertraline 150 mg (1.5 x 100 mg) PO DAILY sucralfate 1 g PO BID 90 days umeclidinium 62.5 mcg/actuation (Incruse Ellipta) 1 inh inhalation BEDTIME Tobacco use date assessed: 06/19/22 Fall risk assessment: 1 Fall in past year Last assessed Fall Risk: 01/29/23 Dental Screening Dental Screen Date: 01/29/23 Did you have a dental visit in the last 12 months?: No Did you have a dental problem in the last 6 months where you did not have access to dental care?: No Was dental information given to patient?: No HPI 3 month f/u HPI Details 67-year-old obese female smoker with a h istory of hypertension hypercholesterolemia COPD and generalized anxiety disorder last seen in June 2022 for physical exam. Mammogram is due. Patient is here for follow-up. COPD- still smoking. controlled - rinse mouth after controller PFSH Medical History (Updated 01/29/23 @ 11:39 by Prashant Delgado MD) Breast cancer screening by mammogram Personal history of nicotine dependence Hip pain Peripheral neuropathy Tobacco abuse Tarsal tunnel syndrome Pulmonary nodule Allergic rhinitis Psoriasis Vitamin D deficiency COPD (chronic obstructive pulmonary disease) Obesity (BMI 30-39.9) History of colon polyps Hemorrhoids Diverticulosis Hx of gout History of diverticulitis Arthritis GERD (gastroesophageal reflux disease) Depression Elevated cholesterol HTN (hypertension) Asthma Surgical History History of appendectomy History of elbow surgery (~2011) History of left oophorectomy (~2008) History of colonoscopy (~2019) History of colectomy (~2008) Family History (Updated 01/29/23 @ 11:15 by Esperanza Lange [facility]) Father Myocardial infarction Mother Lung cancer Maternal Aunt Leukemia Social History Household Members: Family Housing: House Alcohol intake: never Patient Tobacco Use Status: Current everyday Tobacco user Tobacco use type: Cigarette Cigarette Packs Per Day: 0.5 Years Smoked: onset 14, 1/2ppd x 51 yrs, 25PYH e-Cigarette/Vaping Use: Never Used Second Hand Smoke Exposure: No Current occupational status: retired Cognitive needs: No Hearing needs: No Vision needs: No Questionnaire PHQ-9 Over the last 2 weeks, how often have you been bothered by any of the following problems? 1. Little interest or pleasure in doing things: not at all 2. Feeling down, depressed, or hopeless: not at all 3. Trouble falling or staying asleep, or sleeping too much: not at all 4. Feeling tired or having little energy: not at all 5. Poor appetite or overeating: not at all 6. Feeling bad about yourself - or that you are a failure or have let yourself or your family down: several days 7. Trouble concentrating on things, such as reading the newspaper or watching television: several days 8. Moving or speaking so slowly that other people could have noticed. Or the opposite - being so fidgety or restless that you have been moving around a lot more than usual: not at all 9. Thoughts that you would be better off or of hurting yourself in some way: not at all Total score: 2 Depression Screening Interpretation: Negative Source: Developed by Drs. Chandrakant Danae Pérez Kurt Kroenke and colleagues, with an educational mauro from [employer] Thrive Questionnaire Date Thrive assessed: 06/19/22 AUDIT C Alcohol Use Questionnaire (AUDIT-C) 1. How often do you have a drink containing alcohol?: Never 2. How many drinks containing alcohol do you have on a typical day when you are drinking?: 1 or 2 (0) 3. How often do you have six or more drinks on one occasion?: Never Total Score: 0 LISANDRO-7 AMB Questionnaire LISANDRO-7 Date LISANDRO - 7 assessed: 06/19/22 Source: Developed by Drs. Chandrakant Sosa, Han Rod and colleagues, with an educational mauro from [employer] Physical exam (Primary Care) Vital Signs: Oxygen Delivery Method Room Air 01/29/23 11:14 BMI result Body Mass Index 34.2 Tobacco/Smoking Status: Tobacco use Status Tobacco use date assessed 06/19/22 06/19/22 10:25 Patient Tobacco Use Status Current everyday Tobacco 06/19/22 10:25 Tobacco use type Cigarette 06/19/22 10:25 e-Cigarette/Vaping Use Never Used 06/19/22 10:25 Depression Screening Interpretation: Negative Thrive Assessment: Date of Thrive Assessment Date Thrive assessed 06/19/22 06/19/22 10:25 Const General: alert; No acute distress Eyes Conjunctivae: conjunctivae normal Resp Auscultation: clear to auscultation bilaterally Cardio Rate: regular rate Rhythm: regular rhythm GI Inspection: Yes normal to inspection Extrem General: Yes normal to inspection and No edema Assessment and Plan Assessment & Plan (1) HTN (hypertension): Code(s): I10 - Essential (primary) hypertension Qualifiers: Hypertension type: essential hypertension Qualified Code(s): I10 - Essential (primary) hypertension Plan: Continue with blood pressure medication. Decrease salt intake and exercise patient is on lisinopril 40 mg once a day (2) Elevated cholesterol: Code(s): E78.00 - Pure hypercholesterolemia, unspecified Plan: Avoid fried foods, chicken skin, eggs, butter margarine, pastries and meat. Be it pork or beef they have a lot of cholesterol LDL goal of less than 130 and triglyceride of less than 150 patient on pravastatin 20 mg once a day (3) Tobacco abuse: Code(s): Z72.0 - Tobacco use Plan: Patient strongly advised to stop! (4) COPD (chronic obstructive pulmonary disease): Code(s): J44.9 - Chronic obstructive pulmonary disease, unspecified Qualifiers: COPD type: emphysema Emphysema type: unspecified Qualified Code(s): J43.9 - Emphysema, unspecified Plan: Patient strongly advised to stop smoking! Patient on Incruse and Breo and short-acting beta agonist as needed (5) Generalized anxiety disorder: Comment: Declined counseling 11/2021 Code(s): F41.1 - Generalized anxiety disorder Plan: Continue with therapy. Orders: Orders MM tomosynthesis screening BI Today Z12.31 - Encounter for screening mammogram for malignant neoplasm of breast ECG 12 lead EKG Today I10 - Essential (primary) hypertension Medications: Refilled omeprazole 20 mg PO DAILY 90 caps 1RF lisinopril 40 mg PO DAILY 90 tabs 2RF 90 days I10 - Essential (primary) hypertension Coding Level of Care Code Est Pt Level 4 (68390) Diagnoses Essential hypertension I10 Hypertension type: essential hypertension Elevated cholesterol E78.00 Tobacco abuse Z72.0 Pulmonary emphysema, unspecified emphysema type J43.9 COPD type: emphysema Emphysema type: unspecified Generalized anxiety disorder F41.1
== END 2023-01-29 11:50 | disposition home or self-care (01) ==
PROVIDERS: PCP Internal Medicine; Visit Provider Internal Medicine
DX: I10 Essential (primary) hypertension (principal); E78.00 Pure hypercholesterolemia, unspecified; Z72.0 Tobacco use; J43.9 Emphysema, unspecified; F41.1 Generalized anxiety disorder
CPT/HCPCS: 99214

== ENCOUNTER 2023-03-24 10:36 | Outpatient (REF) | payer MEDICARE, SELFPAY ==
--- NOTE | ~2023-03-24 | MM_ITS ---
EXAMINATION: MM SCREENING DIGITAL BREAST TOMOSYNTHESIS, BILATERAL CLINICAL INFORMATION: Screening. Asymptomatic. COMPARISON: Mammography: This study is compared with prior exams dating back to 2017. TECHNIQUE: Digital breast tomosynthesis is performed in both the craniocaudal and mediolateral oblique views along with computer-aided detection (CAD). Synthesized 2D images are generated from the tomosynthesis. FINDINGS: There are scattered areas of fibroglandular density (ACR BI-RADS breast composition Category b). There are no significant masses, abnormal calcifications, or other abnormalities. There are few, bilateral, benign calcifications. MM/MM tomosynthesis screening BI IMPRESSION: No mammographic evidence of malignancy. ASSESSMENT: BI-RADS BI-RADS 2 - Benign Findings RECOMMENDATION: Routine annual mammography screening. 1 year F/U This examination should not preclude the clinical evaluation of a suspicious palpable abnormality. This patient's information was entered into a reminder system with a target due date for their next mammogram.
== END 2023-03-24 10:37 | disposition home or self-care (01) ==
LOC: HO.MAMMO 10:36
PROVIDERS: Visit Provider Internal Medicine
DX: Z12.31 Encounter for screening mammogram for malignant neoplasm of breast (principal)
CPT/HCPCS: 77063; 77067

== ENCOUNTER → 2023-03-24 10:45 | Outpatient (BNV) | payer MEDICARE, SELFPAY | PROVIDERS: Visit Provider Radiology Diagnostic Radiology | DX: Z12.31 Encounter for screening mammogram for malignant neoplasm of breast (principal) | CPT/HCPCS: 77063; 77067 ==

== ENCOUNTER 2023-04-02 10:22 | Outpatient (REF) | payer MEDICARE, SELFPAY ==
--- NOTE | ~2023-04-02 | CT_ITS ---
EXAMINATION: CT CHEST SCREENING CLINICAL INFORMATION: Current smoker with 40 pack year history. COMPARISON: None available. TECHNIQUE: Multidetector volumetric CT imaging of the chest is performed without contrast using low dose technique. Additional 2D coronal and sagittal reformatted images and axial 3D maximum intensity projection (MIP) images are generated on the CT workstation. This CT examination was performed using dose optimization techniques as appropriate, variously including the following: *Automated exposure control *Adjustment of mA and/or kV according to patient size (this includes techniques or standardized protocols for targeted exams where dose is matched to indication/reason for exam; i.e. extremities or head) *Use of iterative reconstruction technique DLP: 62 mGy-cm FINDINGS: SET RIDER: Aortic calcifications. Clear lungs. LUNGS: Trachea and bronchi are patent. Mild centrilobular emphysema. Scattered atelectasis. No change 4 mm anterior OLAYINKA nodule, 6:205. MEDIASTINUM: Unremarkable thyroid. No pathologic lymphadenopathy. Nonenlarged heart. Mitral annular calcifications. Atherosclerotic calcifications nonaneurysmal aorta. Nonenlarged pulmonary arteries. CORONARY ARTERY CALCIFICATION: Moderate. PLEURA: There is no pleural effusion. No pleural mass or thickening. AXILLA: No lymphadenopathy. UPPER ABDOMEN: Hepatosplenomegaly again noted. OSSEOUS STRUCTURES: Degenerative changes. No suspicious osseous lesions. CT/CT lung screening IMPRESSION: Stable left upper lobe lung nodule. Redemonstration hepatosplenomegaly. No new incidental findings. ASSESSMENT: Lung-RADS category 2: Benign RECOMMENDATION: Routine annual low-dose CT screening in 12 months.
--- NOTE | 2023-04-02 11:09 | ECG_ITS ---
Test Reason : htn Blood Pressure : / mmHG Vent. Rate : 056 BPM Atrial Rate : 056 BPM P-R Int : 206 ms QRS Dur : 090 ms QT Int : 424 ms P-R-T Axes : 074 -63 031 degrees QTc Int : 409 ms Sinus bradycardia Left anterior fascicular block Minimal voltage criteria for LVH, may be normal variant ( William product ) Abnormal ECG When compared with ECG of 09-MAY-2007 07:14, No significant change was found Referred By: Prashant Delgado Electronically Signed By:PATRICIA SAINZ MD
[2023-04-02 11:13] LABS: MANUAL DIFF FLAG NO
[2023-04-02 11:27] LABS: Basophils Percent Auto 0.3 % (0-2); Eosinophils Absolute Auto 0.1 X10*3/uL (0.0-0.4); Hematocrit 42.7 % (37.0-47.0); Hemoglobin 15.3 g/dl (12.0-16.0); Imm Gran Abs Auto 0.03 X10*3/uL (0.00-0.03); Imm Gran Pct Auto 0.3 % (0.0-0.4); Lymphocytes Absolute Auto 1.9 X10*3/uL (1.2-4.9); Lymphocytes Percent Auto 21.9 % (20-40); Mean Corpuscular HGB Conc 35.8 g/dl (31.0-35.0); Mean Corpuscular Hemoglobin 30.2 pg (27.0-33.0); Mean Corpuscular Volume 84.4 fL (80.0-98.0); Mean Platelet Volume 9.2 fL (9.4-12.3); Monocytes Absolute Auto 0.5 X10*3/uL (0.1-1.2); Neutrophils Absolute Auto 6.2 x10*3/uL (2.0-8.3); Neutrophils Percent Auto 70.5 % (45-73); Platelet Count 141 X10*3/uL (160-400); Red Blood Count 5.06 X10*6/uL (4.20-5.50); Red Cell Distribution Width 14.4 % (11.0-16.0); White Blood Count 8.8 X10*3/uL (4.8-10.8)
[2023-04-02 12:05] LABS: Alanine Aminotransferase 17 U/L (0-31); Alkaline Phosphatase 90 U/L (39-117); Anion Gap 11 (12-20); Aspartate Amino Transferase 16 U/L (5-31); Bilirubin Total 0.8 mg/dL (0.0-1.0); Blood Urea Nitrogen 16 mg/dL (9-16); Calcium 10.1 mg/dL (8.4-10.2); Carbon Dioxide 26 mmol/L (22-29); Chloride 106 mmol/L (96-108); Cholesterol 206 mg/dL (<200); Estimated Glomerular Filt Rate > 60; Glucose Random 89 mg/dL (60-115); HDL Cholesterol 40 mg/dL (>40); LDL Cholesterol Calculated 125 mg/dL (<100); Potassium 4.1 mmol/L (3.3-5.1); Sodium 139 mmol/L (135-145); Total Protein 7.7 g/dL (6.5-8.0); Triglycerides 206 mg/dL (<150)
[2023-04-02 12:21] LABS: Free T4 (Free Thyroxine) 0.87 ng/dL (0.71-1.85); Thyroid Stimulating Hormone 1.72 uIU/mL (0.32-4.0); Vitamin D 25-OH Total 20.8 ng/mL (>30)
[2023-04-02 12:35] LABS: Vitamin B12 527 pg/mL (200-900)
== END 2023-04-02 10:23 | disposition home or self-care (01) ==
LOC: HO.CT 10:22
PROVIDERS: Absent Provider Internal Medicine; PCP Internal Medicine; Visit Provider Physician Assistant Medical
DX: Z12.2 Encounter for screening for malignant neoplasm of respiratory organs (principal); F17.210 Nicotine dependence, cigarettes, uncomplicated; E78.00 Pure hypercholesterolemia, unspecified; I10 Essential (primary) hypertension
CPT/HCPCS: 36415; 71271; 80053; 80061; 82306; 82607; 82746; 84439; 84443; 85025; 93005

== ENCOUNTER 2023-04-08 11:11 | Outpatient (AMB) | payer MEDICARE, SELFPAY ==
[2023-04-08 12:21] VITALS: BP 150/80; PULSE 69; TEMP 36.6; O2SAT 96; BMI 34.6
--- NOTE | 2023-04-08 12:21 | AM.OFFWIN_ITS ---
Intake Vital Signs 04/08/23 12:21 Height 5 ft 2 in Weight 189 lb BMI 34.6 BP 150/80 H Blood Pressure Location Rt brachial Position Sitting Pulse 69 Pulse Source Pulse Oximeter Temp 97.8 F Pulse Oximetry (%) 96 Oxygen Delivery Method Room Air Intake Visit Reasons: EP ?Bronchitis (masked) Intake Note: pt is here today for bronchitis. started yesterday Patient Tobacco Use Status: Current everyday Tobacco user Allergies ondansetron [From ZOFRAN] Allergy (Severe, Verified 04/08/23 12:22) HIVES atorvastatin Adverse Reaction (Intermediate, Verified 04/08/23 12:22) leg cramps codeine [Codeine] Adverse Reaction (Intermediate, Verified 04/08/23 12:22) UPSET STOMACH Penicillins Adverse Reaction (Intermediate, Verified 04/08/23 12:22) UPSET STOMACH Do you need a note to return to daycare/school/sports/work: No HPI HPI Comments History of Present Illness Details Patient is a 67-year-old female in today for a sick visit. The patient states that over the past 2 weeks she has developed a cough that is increased in frequency. States the cough is mostly dry however in the morning or later night she is able to produce some green phlegm. Denies having any fevers, sore throat, shortness of breath, or chest pain. Denies any dizziness, nausea, vomiting. Patient has a past medical history significant for COPD. She states she is compliant with her maintenance inhalers and has not had to use her albuterol inhaler. Does not know if anyone else in the house sick. Patient has used [id number] medications with some relief. [facility] Medical History (Updated 01/29/23 @ 11:39 by Prashant Delgado MD) Breast cancer screening by mammogram Personal history of nicotine dependence Hip pain Peripheral neuropathy Tobacco abuse Tarsal tunnel syndrome Pulmonary nodule Allergic rhinitis Psoriasis Vitamin D deficiency COPD (chronic obstructive pulmonary disease) Obesity (BMI 30-39.9) History of colon polyps Hemorrhoids Diverticulosis Hx of gout History of diverticulitis Arthritis GERD (gastroesophageal reflux disease) Depression Elevated cholesterol HTN (hypertension) Asthma Surgical History History of appendectomy History of elbow surgery (~2011) History of left oophorectomy (~2008) History of colonoscopy (~2019) History of colectomy (~2008) Family History (Updated 01/29/23 @ 11:15 by Esperanza Lange CMA) Father Myocardial infarction Mother Lung cancer Maternal Aunt Leukemia Social History Household Members: Family Housing: House Alcohol intake: never Patient Tobacco Use Status: Current everyday Tobacco user Tobacco use type: Cigarette Cigarette Packs Per Day: 0.5 Years Smoked: onset 14, 1/2ppd x 51 yrs, 25PYH e-Cigarette/Vaping Use: Never Used Second Hand Smoke Exposure: No Current occupational status: retired Cognitive needs: No Hearing needs: No Vision needs: No Review of Systems Const All systems reviewed & are unremarkable except as noted in HPI and below Denies headache(s) Eyes Denies change in vision and Denies eye discharge ENT Denies dizziness, Denies ear discharge, Denies otalgia, Denies headache(s), Denies nasal discharge and Denies post nasal drip Card Denies dyspnea Resp Reports cough, Reports pain with cough and Denies dyspnea GI Denies diarrhea, Denies nausea and Denies vomiting Neuro Denies dizziness and Denies headache(s) Physical Exam Vital Signs: Last Vital Signs Temp 97.8 F 04/08/23 12:21 Pulse 69 04/08/23 12:21 BP 150/80 H 04/08/23 12:21 Pulse Ox 96 04/08/23 12:21 Oxygen Delivery Method Room Air 04/08/23 12:21 BMI result Body Mass Index 34.6 Vital signs reviewed patient has history of elevated BP at past several visits. Patient has been instructed to follow-up with PCP. Const General: cooperative and no acute distress Orientation/consciousness: patient oriented x3 Limitations: no limitations HEENT Head: Yes normocephalic Ears: TM's normal bilaterally General nose exam: Normal external nose present and Normal nares present Face and sinus: Yes sinuses nontender Mouth: Normal oral and palatal mucosa present Throat: Yes posterior oropharynx normal Neck Neck: Yes normal visual inspection, Yes full ROM, Yes no lymphadenopathy and Yes no meningeal signs Resp Effort & Inspection: normal respiratory effort Auscultation: clear to auscultation bilaterally (But diminished) Cardio Rate: regular rate Rhythm: regular rhythm Heart sounds: S1 normal heart sound present and S2 normal heart sound present GI Inspection: Yes normal to inspection Neuro General: patient oriented x3 and no meningeal signs Cranial nerves: Yes CN's II-XII intact bilaterally Results Reviewed Results Reviewed: Will call patient with respiratory swab results Assessment & Plan Assessment & Plan (1) Bronchitis: Code(s): J40 - Bronchitis, not specified as acute or chronic Plan: Patient will be given azithromycin, and prednisone to be taken as directed. Patient has a history of COPD, and has been taking inhalers as directed at home. She denies shortness of breath or chest pain. On exam there are no crackles in lungs, patient has no fever, this is unlikely to be pneumonia. Patient has been educated on side effects of medication, and that she needs take the entire course of antibiotics. She has been educated about signs of worsening symptoms and when to return to the walk-in or when to present to the emergency room. Patient has been instructed to follow-up PCP in regard to this visit and also to chronic hypertension. Patient is agreeable to this plan. Orders: Orders SARS-CoV2/FLU/RSV 04/08/23 J06.9 - Acute upper respiratory infection, unspecified Medications: New azithromycin For 250 mg dose pack: take 500 mg today (day 1), then 250 mg for 4 days (days 2-5) PO 6 tabs 0RF prednisone 40 mg (2 x 20 mg) PO DAILY 10 tabs 0RF Coding Level of Care Code Est Pt Level 3 (34478) Diagnoses Bronchitis J40 Time Spent (min) 20
== END 2023-04-08 13:24 | disposition home or self-care (01) ==
PROVIDERS: PCP Internal Medicine; Visit Provider Nurse Practitioner Primary Care
DX: J40 Bronchitis, not specified as acute or chronic (principal)
CPT/HCPCS: 99213

== ENCOUNTER 2023-04-08 13:06 | Outpatient (REF) | payer MEDICARE, SELFPAY ==
[2023-04-08 17:44] LABS: Influenza A PCR NEGATIVE (Negative); Influenza B PCR NEGATIVE (Negative); Resp Syncy Virus RNA Qual PCR NEGATIVE (Negative); SARS COV2 PCR INHOUSE NEGATIVE (Negative)
== END 2023-04-08 13:07 | disposition home or self-care (01) ==
LOC: HO.LAB 13:06
PROVIDERS: Visit Provider Nurse Practitioner Primary Care
DX: J06.9 Acute upper respiratory infection, unspecified (principal); Z11.52 Encounter for screening for COVID-19
CPT/HCPCS: 0241U

== ENCOUNTER 2023-05-20 11:21 | Outpatient (AMB) | payer MEDICARE, SELFPAY ==
--- NOTE | 2023-05-20 11:24 | MHC.PC.OV ---
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 Allergies ondansetron [From ZOFRAN] Allergy (Severe, Verified 05/20/23 11:25) HIVES atorvastatin Adverse Reaction (Intermediate, Verified 05/20/23 11:25) leg cramps codeine [Codeine] Adverse Reaction (Intermediate, Verified 05/20/23 11:25) UPSET STOMACH Penicillins Adverse Reaction (Intermediate, Verified 05/20/23 11:25) UPSET STOMACH Medication List - Last Reconciled 05/20/23 by Prashant Delgado MD albuterol sulfate 90 mcg/actuation 2 puffs PO Q4-6H PRN blood pressure monitor (Blood Pressure Kit) As directed bupropion HCl 150 mg PO BID fluticasone furoate-vilanterol 100-25 mcg/dose (Breo Ellipta) 1 ea PO DAILY gabapentin 100 mg PO BEDTIME lisinopril-hydrochlorothiazide 20-12.5 mg 1 tab PO BID omeprazole 20 mg PO DAILY pravastatin 20 mg PO BEDTIME secukinumab 300 mg subcut Q4W sertraline 150 mg (1.5 x 100 mg) PO DAILY sucralfate 1 g PO BID 90 days umeclidinium 62.5 mcg/actuation (Incruse Ellipta) 1 inh inhalation BEDTIME Tobacco use date assessed: 05/20/23 Fall risk assessment: No Falls in past year Last assessed Fall Risk: 05/20/23 Dental Screening Dental Screen Date: 05/20/23 Did you have a dental visit in the last 12 months?: No Did you have a dental problem in the last 6 months where you did not have access to dental care?: No HPI 3mth f/u HPI Details 67-year-old Obese female smoker with COPD hypercholesterolemia hypertension generalized anxiety disorder last seen in January 2023. Patient's colonoscopy is up-to-date mammogram is up-to-date bone density is up-to-date. Review of the notes Urgent Center 04/08/2023 bronchitis treated with Zithromax and prednisone. With the smoking history had a CT scan done in April 2023 showing left upper lobe nodule which is stable COUNT INCLUDES THE [facility] Medical History (Updated 05/20/23 @ 12:20 by Prashant Delgado MD) Breast cancer screening by mammogram Personal history of nicotine dependence Hip pain Peripheral neuropathy Tobacco abuse Tarsal tunnel syndrome Pulmonary nodule Allergic rhinitis Psoriasis Vitamin D deficiency COPD (chronic obstructive pulmonary disease) Obesity (BMI 30-39.9) History of colon polyps Hemorrhoids Diverticulosis Hx of gout History of diverticulitis Arthritis GERD (gastroesophageal reflux disease) Depression Elevated cholesterol HTN (hypertension) Asthma Surgical History History of appendectomy History of elbow surgery (~2011) History of left oophorectomy (~2008) History of colonoscopy (~2019) History of colectomy (~2008) Family History (Updated 01/29/23 @ 11:15 by Esperanza Lange CMA) Father Myocardial infarction Mother Lung cancer Maternal Aunt Leukemia Social History Household Members: Family Housing: House Alcohol intake: never Patient Tobacco Use Status: Current everyday Tobacco user Tobacco use type: Cigarette Cigarette Packs Per Day: 0.5 Years Smoked: onset 14, 1/2ppd x 51 yrs, 25PYH e-Cigarette/Vaping Use: Never Used Second Hand Smoke Exposure: No Current occupational status: retired Cognitive needs: No Hearing needs: No Vision needs: No Questionnaire Thrive Questionnaire Date Thrive assessed: 06/19/22 AUDIT C Alcohol Use Questionnaire (AUDIT-C) 1. How often do you have a drink containing alcohol?: Never 2. How many drinks containing alcohol do you have on a typical day when you are drinking?: 1 or 2 (0) 3. How often do you have six or more drinks on one occasion?: Never Total Score: 0 LISANDRO-7 AMB Questionnaire LISANDRO-7 Date LISANDRO - 7 assessed: 05/20/23 Source: Developed by Drs. Chandrakant Sosa, Danae Linder, Han Almodovar and colleagues, with an educational mauro from [employer]. Physical exam (Primary Care) Vital Signs: Last Vital Signs Pulse 69 05/20/23 11:25 BP 148/82 H 05/20/23 11:25 Pulse Ox 95 05/20/23 11:25 Oxygen Delivery Method Room Air 05/20/23 11:25 BMI result Body Mass Index 34.6 Tobacco/Smoking Status: Tobacco use Status Tobacco use date assessed 05/20/23 05/20/23 11:25 Patient Tobacco Use Status Current everyday Tobacco 05/20/23 11:25 Tobacco use type Cigarette 05/20/23 11:25 e-Cigarette/Vaping Use Never Used 05/20/23 11:25 Thrive Assessment: Date of Thrive Assessment Date Thrive assessed 06/19/22 05/20/23 11:25 Const General: alert; No acute distress Eyes Conjunctivae: conjunctivae normal Resp Auscultation: clear to auscultation bilaterally Cardio Rate: regular rate Rhythm: regular rhythm GI Inspection: Yes normal to inspection Extrem General: Yes normal to inspection and No edema Assessment and Plan Assessment & Plan (1) HTN (hypertension): Code(s): I10 - Essential (primary) hypertension Qualifiers: Hypertension type: essential hypertension Qualified Code(s): I10 - Essential (primary) hypertension Plan: Continue with blood pressure medication. Decrease salt intake and exercise patient is on lisinopril 40 mg once a day (2) Elevated cholesterol: Code(s): E78.00 - Pure hypercholesterolemia, unspecified Plan: Avoid fried foods, chicken skin, eggs, butter margarine, pastries and meat. Be it pork or beef they have a lot of cholesterol LDL goal of less than 130 and triglyceride of less than 150. (3) Tobacco abuse: Comment: CT scan April 2023 left upper lobe nodule Code(s): Z72.0 - Tobacco use Plan: Strongly advised to stop smoking. pack whole week (4) COPD (chronic obstructive pulmonary disease): Code(s): J44.9 - Chronic obstructive pulmonary disease, unspecified Qualifiers: COPD type: emphysema Emphysema type: unspecified Qualified Code(s): J43.9 - Emphysema, unspecified Plan: Stop smoking! On albuterol inhaler and Breo rinse mouth after using (5) Obesity (BMI 30-39.9): Code(s): E66.9 - Obesity, unspecified Plan: Diet and exercise (6) Generalized anxiety disorder: Comment: Declined counseling 11/2021 Code(s): F41.1 - Generalized anxiety disorder Plan: continue with med Medications: New lisinopril-hydrochlorothiazide 20-12.5 mg 1 tab PO BID 60 tabs 4RF I10 - Essential (primary) hypertension Discontinued lisinopril Discontinued Reason: Doctor's Order 40 mg PO DAILY 90 days 90 tabs 2RF I10 - Essential (primary) hypertension azithromycin Discontinued Reason: Patient Completed Course For 250 mg dose pack: take 500 mg today (day 1), then 250 mg for 4 days (days 2-5) PO 6 tabs 0RF prednisone Discontinued Reason: Patient Completed Course 40 mg (2 x 20 mg) PO DAILY 10 tabs 0RF Coding Level of Care Code Est Pt Level 4 (20145) Diagnoses Essential hypertension I10 Hypertension type: essential hypertension Elevated cholesterol E78.00 Tobacco abuse Z72.0 Pulmonary emphysema, unspecified emphysema type J43.9 COPD type: emphysema Emphysema type: unspecified Obesity (BMI 30-39.9) E66.9 Generalized anxiety disorder F41.1
[2023-05-20 11:25] VITALS: BP 148/82; PULSE 69; O2SAT 95; BMI 34.6
== END 2023-05-20 12:31 | disposition home or self-care (01) ==
PROVIDERS: PCP Internal Medicine; Visit Provider Internal Medicine
DX: I10 Essential (primary) hypertension (principal); J43.9 Emphysema, unspecified; E78.00 Pure hypercholesterolemia, unspecified; Z72.0 Tobacco use; E66.9 Obesity, unspecified; Z68.34 Body mass index [BMI] 34.0-34.9, adult; F41.1 Generalized anxiety disorder
CPT/HCPCS: 99214

== ENCOUNTER 2023-07-14 14:04 | Outpatient (AMB) | payer MEDICARE, SELFPAY ==
--- NOTE | 2023-07-14 14:05 | A.OFFPC_ITS ---
Intake Visit Reasons: sinus infection Intake Note: Patient is here today for possible sinus infection, on going for four days with yellowish green mucus when coughing, light headedness, hard time focusing, and shortness of breath. Mental Health Consultant Required: No Philosophy Instructor: Not Required per policy Accompanied by: Self / Same As Patient Allergies ondansetron [From ZOFRAN] Allergy (Severe, Verified 07/14/23 14:10) HIVES atorvastatin Adverse Reaction (Intermediate, Verified 07/14/23 14:10) leg cramps codeine [Codeine] Adverse Reaction (Intermediate, Verified 07/14/23 14:10) UPSET STOMACH Penicillins Adverse Reaction (Intermediate, Verified 07/14/23 14:10) UPSET STOMACH Medication List - Last Reconciled 07/14/23 by Prashant Delgado MD albuterol sulfate 90 mcg/actuation 2 puffs PO Q4-6H PRN blood pressure monitor (Blood Pressure Kit) As directed bupropion HCl 150 mg PO BID fluticasone furoate-vilanterol 100-25 mcg/dose (Breo Ellipta) 1 ea PO DAILY gabapentin 100 mg PO BEDTIME lisinopril-hydrochlorothiazide 20-12.5 mg 1 tab PO BID omeprazole 20 mg PO DAILY pravastatin 20 mg PO BEDTIME secukinumab 300 mg subcut Q4W sertraline 150 mg (1.5 x 100 mg) PO DAILY sucralfate 1 g PO BID 90 days umeclidinium 62.5 mcg/actuation (Incruse Ellipta) 1 inh inhalation BEDTIME Tobacco use date assessed: 05/20/23 HPI sinus infection HPI Details 67-year-old obese female 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 last week had flu nasal congested, blowing nose, chills, productive , light headed [facility] Medical History (Updated 07/14/23 @ 15:40 by Prashant Delgado MD) Breast cancer screening by mammogram Personal history of nicotine dependence Hip pain Peripheral neuropathy Tobacco abuse Tarsal tunnel syndrome Pulmonary nodule Allergic rhinitis Psoriasis Vitamin D deficiency COPD (chronic obstructive pulmonary disease) Obesity (BMI 30-39.9) History of colon polyps Hemorrhoids Diverticulosis Hx of gout History of diverticulitis Arthritis GERD (gastroesophageal reflux disease) Depression Elevated cholesterol HTN (hypertension) Asthma Surgical History History of appendectomy History of elbow surgery (~2011) History of left oophorectomy (~2008) History of colonoscopy (~2019) History of colectomy (~2008) Family History Father Myocardial infarction Mother Lung cancer Maternal Aunt Leukemia Social History Household Members: Family Housing: House Alcohol intake: never Patient Tobacco Use Status: Current everyday Tobacco user Tobacco use type: Cigarette Cigarette Packs Per Day: 0.5 Years Smoked: onset 14, 1/2ppd x 49 yrs, 25PYH e-Cigarette/Vaping Use: Never Used Second Hand Smoke Exposure: No Current occupational status: retired Cognitive needs: No Hearing needs: No Vision needs: No Questionnaire PHQ-9 Over the last 2 weeks, how often have you been bothered by any of the following problems? 1. Little interest or pleasure in doing things: not at all 2. Feeling down, depressed, or hopeless: not at all 3. Trouble falling or staying asleep, or sleeping too much: not at all 4. Feeling tired or having little energy: not at all 5. Poor appetite or overeating: not at all 6. Feeling bad about yourself - or that you are a failure or have let yourself or your family down: not at all 7. Trouble concentrating on things, such as reading the newspaper or watching television: not at all 8. Moving or speaking so slowly that other people could have noticed. Or the opposite - being so fidgety or restless that you have been moving around a lot more than usual: not at all 9. Thoughts that you would be better off or of hurting yourself in some way: not at all Total score: 0 Depression Screening Interpretation: Negative Depression Screening Done: Yes Source: Developed by Drs. Chandrakant Sosa, Danae Linder, Han Almodovar and colleagues, with an educational mauro from [employer]. Thrive Questionnaire Date Thrive assessed: 07/14/23 I am a: Patient What is your living situation today?: I have a steady place to live Within the past 12 months, did the food you bought not last and you didn't have the money to get more?: Never true Within the past 12 months, did you worry whether your food would run out before you got money to buy more?: Never true Do you have trouble paying for medicines?: No Do you have trouble getting transportation to medical appointments?: No Do you have trouble paying your heating and electricity bill?: No Do you have trouble taking care of your child, family member or friend?: No Do you have trouble with day-to-day activities such as bathing, preparing meals, shopping, managing finances, etc.?: No Are you currently unemployed and looking for a job?: No Are you interested in more education?: No Currently or been in a relationship where the following occur: no concerns reported THRIVE Score: 0 LISANDRO-7 AMB Questionnaire LISANDRO-7 Date LISANDRO - 7 assessed: 05/20/23 Source: Developed by Drs. Chandrakant Sosa, Danae Linder, Han Almodovar and colleagues, with an educational mauro from [employer]. Physical exam (Primary Care) Tobacco/Smoking Status: Tobacco use Status Tobacco use date assessed 05/20/23 07/14/23 14:12 Patient Tobacco Use Status Current everyday Tobacco 07/14/23 14:12 Tobacco use type Cigarette 07/14/23 14:12 e-Cigarette/Vaping Use Never Used 07/14/23 14:12 PHQ-9: PHQ-9 Score PHQ-9: Total score 0 07/14/23 14:12 Depression Screening Interpretation: Negative Thrive Assessment: Date of Thrive Assessment Date Thrive assessed 07/14/23 07/14/23 14:12 Currently or been in a relationship where the following occur: no concerns reported Telehealth Telehealth Location of provider rendering services: practice address Location of patient: address on file Patient Identification confirmed using: Name, : Yes Telehealth method: voice only Patient verbally consented to treatment: Yes Patient verbally consented to billing insurance company: Yes Patient informed of any privacy concerns related to visit: Yes Minutes spent on Phone/Video with Pt.: 25 Assessment and Plan Assessment & Plan (1) Tobacco abuse: Comment: CT scan April 2023 left upper lobe nodule Code(s): Z72.0 - Tobacco use Plan: Patient is strongly advised to stop smoking! (2) COPD (chronic obstructive pulmonary disease): Code(s): J44.9 - Chronic obstructive pulmonary disease, unspecified Qualifiers: COPD type: emphysema Emphysema type: unspecified Qualified Code(s): J43.9 - Emphysema, unspecified Plan: Presently on inhalers albuterol and Breo and Incruse. (3) Nasal sinus congestion: Code(s): R09.81 - Nasal congestion Plan: Antibiotics sent in plus nasal spray so that it will help with congestion. Patient is strongly advised to stop smoking! Medications: New azithromycin (Zithromax) For 250 mg dose pack: take 500 mg today (day 1), then 250 mg for 4 days (days 2-5) PO 6 tabs 3RF R09.81 - Nasal congestion fluticasone propionate 50 mcg/actuation (Flonase Allergy Relief) administer into each nostril 2 sprays intranasal DAILY 16 grams 0RF R09.81 - Nasal congestion Coding Level of Care Code Tele Est Pt Level 4 (97809) Diagnoses Tobacco abuse Z72.0 Pulmonary emphysema, unspecified emphysema type J43.9 COPD type: emphysema Emphysema type: unspecified Nasal sinus congestion R09.81
== END 2023-07-14 16:34 | disposition home or self-care (01) ==
LOC: HO.HMGH 14:05
PROVIDERS: PCP Internal Medicine; Visit Provider Internal Medicine
DX: R09.81 Nasal congestion (principal); J43.9 Emphysema, unspecified; F17.210 Nicotine dependence, cigarettes, uncomplicated
CPT/HCPCS: G2252

== ENCOUNTER 2023-08-22 11:13 | Outpatient (AMB) | payer MEDICARE, SELFPAY ==
[2023-08-22 11:19] VITALS: BP 148/82; PULSE 64; O2SAT 96; BMI 34.2
--- NOTE | 2023-08-22 11:19 | A.OFFPC_ITS ---
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 Allergies ondansetron [From ZOFRAN] Allergy (Severe, Verified 08/22/23 11:20) HIVES atorvastatin Adverse Reaction (Intermediate, Verified 08/22/23 11:20) leg cramps codeine [Codeine] Adverse Reaction (Intermediate, Verified 08/22/23 11:20) UPSET STOMACH Penicillins Adverse Reaction (Intermediate, Verified 08/22/23 11:20) UPSET STOMACH Medication List - Last Reconciled 08/22/23 by Prashant Delgado MD albuterol sulfate 90 mcg/actuation 2 puffs PO Q4-6H PRN blood pressure monitor (Blood Pressure Kit) As directed bupropion HCl XL 150 mg PO BID fluticasone furoate-vilanterol 100-25 mcg/dose (Breo Ellipta) 1 ea PO DAILY fluticasone propionate 50 mcg/actuation (Flonase Allergy Relief) 2 sprays intranasal DAILY gabapentin 100 mg PO BEDTIME lisinopril-hydrochlorothiazide 20-12.5 mg 1 tab PO BID omeprazole 20 mg PO DAILY pravastatin 20 mg PO BEDTIME secukinumab 300 mg subcut Q4W sertraline 150 mg (1.5 x 100 mg) PO DAILY sucralfate 1 g PO BID 90 days umeclidinium 62.5 mcg/actuation (Incruse Ellipta) 1 inh inhalation BEDTIME Tobacco use date assessed: 08/22/23 Fall risk assessment: No Falls in past year Last assessed Fall Risk: 08/22/23 Dental Screening Dental Screen Date: 05/20/23 HPI COPD, tobacco abuse, HTN HPI Details 67-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 Last seen in July 2023. Up-to-date with colonoscopy, mammogram and bone density.urgent center 2 weeks ago R gluteal area pain - [facility] Medical History (Updated 08/22/23 @ 11:51 by Prashant Delgado MD) Breast cancer screening by mammogram Personal history of nicotine dependence Hip pain Peripheral neuropathy Tobacco abuse Tarsal tunnel syndrome Pulmonary nodule Allergic rhinitis Psoriasis Vitamin D deficiency COPD (chronic obstructive pulmonary disease) Obesity (BMI 30-39.9) History of colon polyps Hemorrhoids Diverticulosis Hx of gout History of diverticulitis Arthritis GERD (gastroesophageal reflux disease) Depression Elevated cholesterol HTN (hypertension) Asthma Surgical History History of appendectomy History of elbow surgery (~2011) History of left oophorectomy (~2008) History of colonoscopy (~2019) History of colectomy (~2008) Family History Father Myocardial infarction Mother Lung cancer Maternal Aunt Leukemia Social History Household Members: Family Housing: House Alcohol intake: never Patient Tobacco Use Status: Current everyday Tobacco user Tobacco use type: Cigarette Cigarette Packs Per Day: 0.5 Years Smoked: onset 14, 1/2ppd x 51 yrs, 25PYH e-Cigarette/Vaping Use: Never Used Second Hand Smoke Exposure: No Current occupational status: retired Cognitive needs: No Hearing needs: No Vision needs: No Questionnaire Thrive Questionnaire Date Thrive assessed: 07/14/23 I am a: Patient What is your living situation today?: I have a steady place to live Within the past 12 months, did the food you bought not last and you didn't have the money to get more?: Never true Within the past 12 months, did you worry whether your food would run out before you got money to buy more?: Never true THRIVE Score: 0 AUDIT C Alcohol Use Questionnaire (AUDIT-C) 1. How often do you have a drink containing alcohol?: Never 2. How many drinks containing alcohol do you have on a typical day when you are drinking?: 1 or 2 (0) 3. How often do you have six or more drinks on one occasion?: Never Total Score: 0 LISANDRO-7 AMB Questionnaire LISANDRO-7 Date LISANDRO - 7 assessed: 05/20/23 Source: Developed by Drs. Chandrakant Sosa, Danae Linder, Han Almodovar and colleagues, with an educational mauro from [email or web address]. Physical exam (Primary Care) Vital Signs: Last Vital Signs Pulse 64 08/22/23 11:19 BP 148/82 H 08/22/23 11:19 Pulse Ox 96 08/22/23 11:19 Oxygen Delivery Method Room Air 08/22/23 11:19 BMI result Body Mass Index 34.2 Tobacco/Smoking Status: Tobacco use Status Tobacco use date assessed 08/22/23 08/22/23 11:20 Patient Tobacco Use Status Current everyday Tobacco 08/22/23 11:20 Tobacco use type Cigarette 08/22/23 11:20 e-Cigarette/Vaping Use Never Used 08/22/23 11:20 Thrive Assessment: Date of Thrive Assessment Date Thrive assessed 07/14/23 08/22/23 11:20 Const General: alert; No acute distress Eyes Conjunctivae: conjunctivae normal Resp Auscultation: clear to auscultation bilaterally Cardio Rate: regular rate Rhythm: regular rhythm GI Inspection: Yes normal to inspection Extrem General: Yes normal to inspection and No edema Assessment and Plan Assessment & Plan (1) HTN (hypertension): Code(s): I10 - Essential (primary) hypertension Qualifiers: Hypertension type: essential hypertension Qualified Code(s): I10 - Essential (primary) hypertension Plan: Continue with blood pressure medication. Decrease salt intake and exercise presently taking lisinopril hydrochlorothiazide. patient admits to not taking th is and only on lisinopril 40 mg - advised change (2) Elevated cholesterol: Code(s): E78.00 - Pure hypercholesterolemia, unspecified Plan: Avoid fried foods, chicken skin, eggs, butter margarine, pastries and meat. Be it pork or beef they have a lot of cholesterol pravastatin 20 mg once a day LDL goal of less than 130 and triglyceride of less than 150 (3) COPD (chronic obstructive pulmonary disease): Code(s): J44.9 - Chronic obstructive pulmonary disease, unspecified Qualifiers: COPD type: emphysema Emphysema type: unspecified Qualified Code(s): J43.9 - Emphysema, unspecified Plan: Patient is strongly advised to stop smoking summation on Breo and albuterol and Incruse (4) Obesity (BMI 30-39.9): Code(s): E66.9 - Obesity, unspecified Plan: Diet and exercise (5) Tobacco abuse: Comment: CT scan April 2023 left upper lobe nodule Code(s): Z72.0 - Tobacco use Plan: Strongly advised to stop smoking! (6) Generalized anxiety disorder: Comment: Declined counseling 11/2021 Code(s): F41.1 - Generalized anxiety disorder Plan: Continue present medication on sertraline Bue per prior on (7) Osteopenia: Code(s): M85.80 - Other specified disorders of bone density and structure, unspecified site Plan: Reminded about bone density (8) GERD (gastroesophageal reflux disease): Code(s): K21.9 - Gastro-esophageal reflux disease without esophagitis (9) Sciatica of right side: Code(s): M54.31 - Sciatica, right side Plan: discussed about the problem, decline dtherapy Medications: Refilled sucralfate 1 g PO BID 90 days 180 tabs 2RF bupropion HCl XL 150 mg PO BID 180 tabs 1RF F32.9 - Major depressive disorder, single episode, unspecified, F41.9 - Anxiety disorder, unspecified lisinopril-hydrochlorothiazide 20-12.5 mg 1 tab PO BID 60 tabs 4RF I10 - Essential (primary) hypertension omeprazole 20 mg PO DAILY 90 caps 2RF K21.9 - Gastro-esophageal reflux disease without esophagitis Discontinued azithromycin (Zithromax) Discontinued Reason: Doctor's Order For 250 mg dose pack: take 500 mg today (day 1), then 250 mg for 4 days (days 2-5) PO 6 tabs 3RF R09.81 - Nasal congestion Coding Level of Care Code Est Pt Level 4 (25064) Diagnoses Essential hypertension I10 Hypertension type: essential hypertension Elevated cholesterol E78.00 Pulmonary emphysema, unspecified emphysema type J43.9 COPD type: emphysema Emphysema type: unspecified Obesity (BMI 30-39.9) E66.9 Tobacco abuse Z72.0 Generalized anxiety disorder F41.1 Osteopenia M85.80 GERD (gastroesophageal reflux disease) K21.9 Sciatica of right side M54.31
== END 2023-08-22 12:00 | disposition home or self-care (01) ==
PROVIDERS: PCP Internal Medicine; Visit Provider Internal Medicine
DX: I10 Essential (primary) hypertension (principal); E78.00 Pure hypercholesterolemia, unspecified; J43.9 Emphysema, unspecified; F17.210 Nicotine dependence, cigarettes, uncomplicated; F41.1 Generalized anxiety disorder; M85.80 Other specified disorders of bone density and structure, unspecified site; K21.9 Gastro-esophageal reflux disease without esophagitis; M54.31 Sciatica, right side
CPT/HCPCS: 99214

== ENCOUNTER 2024-01-07 10:54 | Outpatient (AMB) | payer MEDICARE, SELFPAY ==
[2024-01-07 10:56] VITALS: BP 158/92; PULSE 77; O2SAT 98; BMI 33.3
--- NOTE | 2024-01-07 10:56 | A.OFFPC_ITS ---
Vital Signs 01/07/24 10:56 Height 5 ft 2 in Weight 182 lb BMI 33.3 BP 158/92 H Blood Pressure Location Lt brachial Position Sitting Pulse 77 Pulse Source Pulse Oximeter Pulse Oximetry (%) 98 Oxygen Delivery Method Room Air Intake Visit Reasons: LISANDRO - see comments Intake Note: Patient did have a soda with caffeine prior to coming in. Allergies ondansetron [From ZOFRAN] Allergy (Severe, Verified 01/07/24 10:58) HIVES atorvastatin Adverse Reaction (Intermediate, Verified 01/07/24 10:58) leg cramps codeine [Codeine] Adverse Reaction (Intermediate, Verified 01/07/24 10:58) UPSET STOMACH Penicillins Adverse Reaction (Intermediate, Verified 01/07/24 10:58) UPSET STOMACH Tobacco use date assessed: 01/07/24 Fall risk assessment: No Falls in past year Last assessed Fall Risk: 01/07/24 Dental Screening Dental Screen Date: 01/07/24 Did you have a dental visit in the last 12 months?: No Did you have a dental problem in the last 6 months where you did not have access to dental care?: No Was dental information given to patient?: Patient has dentist HPI LISANDRO - see comments 2 HPI Details 68-year-old obese female smoker with hyp ertension hypercholesterolemia COPD generalized anxiety disorder and GERD last seen in 08/30/2023. Patient is up-to-date with colonoscopy 02/29/2020, mammogram 03/31/2023. stress with daughter alcoholic still smoking and had the mistake with lisinopril - was taking only lisinopril when i told her that she had the change of BP med lisinopril HCTZ PFSH Medical History (Updated 08/22/23 @ 11:51 by Prashant Delgado MD) Breast cancer screening by mammogram Personal history of nicotine dependence Hip pain Peripheral neuropathy Tobacco abuse Tarsal tunnel syndrome Pulmonary nodule Allergic rhinitis Psoriasis Vitamin D deficiency COPD (chronic obstructive pulmonary disease) Obesity (BMI 30-39.9) History of colon polyps Hemorrhoids Diverticulosis Hx of gout History of diverticulitis Arthritis GERD (gastroesophageal reflux disease) Depression Elevated cholesterol HTN (hypertension) Asthma Surgical History History of appendectomy History of elbow surgery (~2011) History of left oophorectomy (~2008) History of colonoscopy (~2019) History of colectomy (~2008) Family History Father Myocardial infarction Mother Lung cancer Maternal Aunt Leukemia Social History Household Members: Family Housing: House Alcohol intake: never Patient Tobacco Use Status: Current everyday Tobacco user Tobacco use type: Cigarette Cigarette Packs Per Day: 0.5 Cigarettes Per Day: 8 Years Smoked: onset 14, 1/2ppd x 49 yrs, 25PYH e-Cigarette/Vaping Use: Never Used Second Hand Smoke Exposure: No Current occupational status: retired Cognitive needs: No Hearing needs: No Vision needs: Yes Questionnaire PHQ-9 Over the last 2 weeks, how often have you been bothered by any of the following problems? 1. Little interest or pleasure in doing things: not at all 2. Feeling down, depressed, or hopeless: not at all 3. Trouble falling or staying asleep, or sleeping too much: not at all 4. Feeling tired or having little energy: not at all 5. Poor appetite or overeating: not at all 6. Feeling bad about yourself - or that you are a failure or have let yourself or your family down: not at all 7. Trouble concentrating on things, such as reading the newspaper or watching television: not at all 8. Moving or speaking so slowly that other people could have noticed. Or the opposite - being so fidgety or restless that you have been moving around a lot more than usual: not at all 9. Thoughts that you would be better off or of hurting yourself in some way: not at all Total score: 0 Depression Screening Interpretation: Negative Depression Screening Done: Yes Source: Developed by Drs. Chandrakant Sosa, Danae Linder, Han Almodovar and colleagues, with an educational mauro from [employer]. Thrive Questionnaire Date Thrive assessed: 07/14/23 AUDIT C Alcohol Use Questionnaire (AUDIT-C) 1. How often do you have a drink containing alcohol?: Never 2. How many drinks containing alcohol do you have on a typical day when you are drinking?: 1 or 2 (0) 3. How often do you have six or more drinks on one occasion?: Never Total Score: 0 LISANDRO-7 AMB Questionnaire LISANDRO-7 Date LISANDRO - 7 assessed: 05/20/23 Source: Developed by Drs. Chandrakant Sosa, Danae Linder, Han Almodovar and colleagues, with an educational mauro from [employer]. Physical exam (Primary Care) Vital Signs: Last Vital Signs Pulse 77 01/07/24 10:56 BP 158/92 H 01/07/24 10:56 Pulse Ox 98 01/07/24 10:56 Oxygen Delivery Method Room Air 01/07/24 10:56 BMI result Body Mass Index 33.3 Tobacco/Smoking Status: Tobacco use Status Tobacco use date assessed 01/07/24 01/07/24 11:03 Patient Tobacco Use Status Current everyday Tobacco 01/07/24 10:57 Tobacco use type Cigarette 01/07/24 10:57 e-Cigarette/Vaping Use Never Used 01/07/24 10:57 PHQ-9: PHQ-9 Score PHQ-9: Total score 0 01/07/24 11:03 Depression Screening Interpretation: Negative Thrive Assessment: Date of Thrive Assessment Date Thrive assessed 07/14/23 01/07/24 10:57 Const General: alert; No acute distress Eyes Conjunctivae: conjunctivae normal Resp Auscultation: clear to auscultation bilaterally Cardio Rate: regular rate Rhythm: regular rhythm GI Inspection: Yes normal to inspection Extrem General: Yes normal to inspection and No edema Assessment and Plan Assessment & Plan (1) Tobacco abuse: Comment: CT scan April 2023 left upper lobe nodule Code(s): Z72.0 - Tobacco use Plan: Patient has been strongly advised to stop smoking. Patient is enrolled in the lung cancer screening program. (2) COPD (chronic obstructive pulmonary disease): Code(s): J44.9 - Chronic obstructive pulmonary disease, unspecified Qualifiers: COPD type: emphysema Emphysema type: unspecified Qualified Code(s): J43.9 - Emphysema, unspecified Plan: Patient advised to stop smoking! Continuing with the albuterol inhaler has the Breo and Incruse (3) Obesity (BMI 30-39.9): Code(s): E66.9 - Obesity, unspecified Plan: Diet and exercisess noted weight loss (4) HTN (hypertension): Code(s): I10 - Essential (primary) hypertension Qualifiers: Hypertension type: essential hypertension Qualified Code(s): I10 - Essential (primary) hypertension Plan: Continue with blood pressure medication. Decrease salt intake and exercise on lisinopril hydrochlorothiazide 20/12.5 mg twice a day (5) Elevated cholesterol: Code(s): E78.00 - Pure hypercholesterolemia, unspecified Plan: Avoid fried foods, chicken skin, eggs, butter margarine, pastries and meat. Be it pork or beef they have a lot of cholesterol LDL goal of less than 130 and triglyceride of less than 150 on pravastatin 20 mg at bedtime (6) Generalized anxiety disorder: Comment: Declined counseling 11/2021 Code(s): F41.1 - Generalized anxiety disorder Plan: Continue with counseling and therapy Orders: Orders Complete Blood Count Auto Diff 3 Months I10 - Essential (primary) hypertension Comprehensive Met. Panel 3 Months I10 - Essential (primary) hypertension Lipid Panel 3 Months E78.00 - Pure hypercholesterolemia, unspecified, I10 - Essential (primary) hypertension Vitamin B12 and Folate 3 Months I10 - Essential (primary) hypertension Vitamin D 25-OH Total 3 Months I10 - Essential (primary) hypertension Free T4 (Free Thyroxine) 3 Months I10 - Essential (primary) hypertension Thyroid Stimulating Hormone 3 Months I10 - Essential (primary) hypertension Referrals Psychiatry Outpatient Consultation Service F41.1 - Generalized anxiety disor heber Medications: Refilled lisinopril-hydrochlorothiazide 20-12.5 mg 1 tab PO BID 60 tabs 4RF I10 - E ssential (primary) hypertension Coding Level of Care Code Est Pt Level 4 (63152) Diagnoses Tobacco abuse Z72.0 Pulmonary emphysema, unspecified emphysema type J43.9 COPD type: emphysema Emphysema type: unspecified Obesity (BMI 30-39.9) E66.9 Essential hypertension I10 Hypertension type: essential hypertension Elevated cholesterol E78.00 Generalized anxiety disorder F41.1
== END 2024-01-07 11:26 | disposition home or self-care (01) ==
PROVIDERS: PCP Internal Medicine; Visit Provider Internal Medicine
DX: J43.9 Emphysema, unspecified (principal); Z72.0 Tobacco use; Z68.33 Body mass index [BMI] 33.0-33.9, adult; E66.9 Obesity, unspecified; I10 Essential (primary) hypertension; E78.00 Pure hypercholesterolemia, unspecified; F41.1 Generalized anxiety disorder
CPT/HCPCS: 99214

== ENCOUNTER 2024-01-16 10:12 | Emergency (ER) | payer MEDICARE, SELFPAY ==
--- NOTE | ~2024-01-16 | CT_ITS ---
EXAMINATION: CT ABDOMEN AND PELVIS WITH CONTRAST CLINICAL INFORMATION: Left lower quadrant pain. Diarrhea. History of diverticulitis. COMPARISON: CT abdomen pelvis dated November 12, 2021. TECHNIQUE: Multidetector volumetric images were obtained from the superior aspect of the liver through the pubic symphysis following administration 85 mL of Omnipaque 350 intravenous contrast. Sagittal and coronal reformatted images were obtained on the technologist's workstation. Oral contrast: No This CT examination was performed using dose optimization techniques as appropriate, variously including the following: *Automated exposure control *Adjustment of mA and/or kV according to patient size (this includes techniques or standardized protocols for targeted exams where dose is matched to indication/reason for exam; i.e. extremities or head) *Use of iterative reconstruction technique DLP: 613 mGy-cm FINDINGS: LUNG BASES: The visualized lung bases are unremarkable. LIVER, GALLBLADDER, AND BILIARY TREE: The liver is normal in size, shape, and attenuation. No focal hepatic lesion or biliary ductal dilatation is present. The gallbladder is unremarkable with no evidence of radiopaque gallstones, gallbladder wall thickening, or obvious pericholecystic inflammatory changes. PANCREAS: Unremarkable. SPLEEN: The spleen is enlarged, measuring up to 15 cm in length. ADRENAL GLANDS: Unremarkable. KIDNEYS AND URETERS: The kidneys are normal in size, shape, and attenuation. No hydronephrosis, hydroureter, or calculi seen. No perinephric stranding. BLADDER: Unremarkable. GASTROINTESTINAL TRACT: The small and large bowel are normal in caliber. There is descending and sigmoid colon diverticulosis. There is a short segment of proximal sigmoid colon which demonstrates mural thickening and pericolonic inflammatory stranding consistent with acute diverticulitis. The appendix is unremarkable. ABDOMINAL WALL: No significant hernia is appreciated. LYMPH NODES: Again noted are prominent retroperitoneal lymph nodes measuring up to 0.9 cm in short axis. The appearance is similar to the prior CT examination dated November 12, 2021. VASCULAR: No abdominal aortic aneurysm. There is moderate atherosclerotic disease. PELVIC VISCERA: Unremarkable. No adnexal mass. No free fluid within the pelvis. OSSEOUS STRUCTURES: There are degenerative changes of the lumbar spine. CT/CT abdomen pelvis w IV con IMPRESSION: There is descending and sigmoid colon diverticulosis. There is a short segment of proximal sigmoid colon which demonstrates mural thickening and pericolonic inflammatory stranding consistent with acute diverticulitis. Splenomegaly. Prominent retroperitoneal lymph nodes not significantly changed since prior examination dated November 12, 2021. Fleischner guidelines were followed. Electronically signed by: Taiwo Levi DO 01/16/2024 04:34 PM EDT
[2024-01-16 10:28] VITALS: BP 182/72; PULSE 70; RESP 18; TEMP 37.1; O2SAT 95; BMI 33.7
[2024-01-16 10:44] LABS: MANUAL DIFF FLAG NO
[2024-01-16 10:48] LABS: Basophils Percent Auto 0.4 % (0-2); Eosinophils Absolute Auto 0.1 X10*3/uL (0.0-0.4); Eosinophils Percent Auto 0.9 % (0-4); Hematocrit 42.1 % (37.0-47.0); Hemoglobin 15.3 g/dl (12.0-16.0); Imm Gran Abs Auto 0.04 X10*3/uL (0.00-0.03); Imm Gran Pct Auto 0.4 % (0.0-0.4); Lymphocytes Absolute Auto 1.6 X10*3/uL (1.2-4.9); Lymphocytes Percent Auto 14.6 % (20-40); Mean Corpuscular HGB Conc 36.3 g/dl (31.0-35.0); Mean Corpuscular Hemoglobin 30.4 pg (27.0-33.0); Mean Corpuscular Volume 83.5 fL (80.0-98.0); Mean Platelet Volume 9.5 fL (9.4-12.3); Monocytes Absolute Auto 0.8 X10*3/uL (0.1-1.2); Monocytes Percent Auto 7.4 % (2-11); Neutrophils Absolute Auto 8.6 x10*3/uL (2.0-8.3); Neutrophils Percent Auto 76.3 % (45-73); Platelet Count 138 X10*3/uL (160-400); Red Blood Count 5.04 X10*6/uL (4.20-5.50); Red Cell Distribution Width 14.3 % (11.0-16.0); White Blood Count 11.3 X10*3/uL (4.8-10.8)
[2024-01-16 11:02] LABS: Alanine Aminotransferase 13 U/L (0-31); Albumin Level 4.3 g/dL (3.5-5.0); Alkaline Phosphatase 96 U/L (39-117); Anion Gap 14 (12-20); Aspartate Amino Transferase 13 U/L (5-31); Bilirubin Direct 0.2 mg/dL (0.0-0.5); Bilirubin Total 0.7 mg/dL (0.0-1.0); Blood Urea Nitrogen 15 mg/dL (9-16); Calcium 10.3 mg/dL (8.4-10.2); Carbon Dioxide 24 mmol/L (22-29); Chloride 106 mmol/L (96-108); Estimated Glomerular Filt Rate > 60; Glucose Random 101 mg/dL (60-115); Potassium 3.9 mmol/L (3.3-5.1); Sodium 140 mmol/L (135-145); Total Protein 7.6 g/dL (6.5-8.0)
[2024-01-16 13:22] VITALS: BP 165/77; PULSE 64; RESP 20; TEMP 37; O2SAT 95
--- NOTE | 2024-01-16 13:25 | ED_ITS ---
HPI - General Adult General Chief complaint: Abdominal Pain Stated complaint: Diverticulitis Time Seen by Provider: 01/16/24 13:36 Source: patient Mode of arrival: ambulatory Limitations: no limitations History of Present Illness HPI narrative: Patient is a 68-year-old female presenting to the emergency department for evaluation of left lower quadrant pain and generalized bloated feeling. Onset was 3 days ago. Worse this morning upon awakening. Admits to pain exacerbating with movement somewhat improved with rest. Associated diarrhea described as loose watery stools 3 times daily without hematochezia or melena. Denies upper abdominal pain, nausea vomiting Denies symptoms. Denies fevers or chills. Admits to a history of similar pain in the past with diverticulitis, she has had a prior colon resection due to her diverticulitis. Related Data Home Medications ?Medication ?Instructions ?Recorded ?Confirmed albuterol sulfate 90 mcg/actuation 2 puff PO Q4-6H PRN wheezing 03/02/20 08/22/23 aerosol inhaler secukinumab 150 mg/mL subcutaneous 300 mg subcut Q4W 06/19/22 08/22/23 pen injector Previous Rx's ?Medication ?Instructions ?Recorded gabapentin 100 mg capsule 100 mg PO BEDTIME #30 caps 04/05/20 blood pressure monitor (Blood #1 ea 06/19/22 Pressure Kit) sertraline 100 mg tablet 150 mg (1.5 x 100 mg) PO DAILY 06/19/22 #180 tabs umeclidinium 62.5 mcg/actuation 1 inh inhalation BEDTIME #30 ea 04/16/23 blister powder for inhalation (Incruse Ellipta) pravastatin 20 mg tablet 20 mg PO BEDTIME #90 tabs 06/19/23 bupropion HCl 150 mg 24 hr tablet, 150 mg PO BID #180 tabs 08/22/23 extended release omeprazole 20 mg capsule,delayed 20 mg PO DAILY #90 caps 08/22/23 release sucralfate 1 gram tablet 1 g PO BID 90 days #180 tabs 08/22/23 fluticasone furoate 100 1 ea PO DAILY #180 ea 09/16/23 mcg-vilanterol 25 mcg/dose inhalation powder (Breo Ellipta) clotrimazole 1 % topical cream 1 appl topical BID 4 weeks #45 12/03/23 grams miconazole nitrate 2 % topical 1 appl topical BID #85 grams 12/03/23 powder (Zeasorb AF) fluticasone propionate 50 2 spray intranasal DAILY #16 grams 12/25/23 mcg/actuation nasal spray,suspension (Flonase Allergy Relief) lisinopril 20 1 tab PO BID #60 tabs 01/07/24 mg-hydrochlorothiazide 12.5 mg tablet ciprofloxacin HCl 500 mg tablet 500 mg PO BID #14 tabs 01/16/24 metronidazole 500 mg tablet 500 mg PO Q8H #21 tabs 01/16/24 Allergies Allergy/AdvReac Type Severity Reaction Status Date / Time ondansetron [From ZOFRAN] Allergy Severe HIVES Verified 01/16/24 10:30 atorvastatin AdvReac Intermediate leg cramps Verified 01/16/24 10:30 codeine [Codeine] AdvReac Intermediate UPSET Verified 01/16/24 10:30 STOMACH Penicillins AdvReac Intermediate UPSET Verified 01/16/24 10:30 STOMACH Review of Systems 2 Review of Systems: Yes all other systems are reviewed and are negative PMFSH Past Medical History Attestation statement: The following information was validated with the patient. Source: old records reviewed Medical History Breast cancer screening by mammogram Personal history of nicotine dependence Hip pain Peripheral neuropathy Tobacco abuse Tarsal tunnel syndrome Pulmonary nodule Allergic rhinitis Psoriasis Vitamin D deficiency COPD (chronic obstructive pulmonary disease) Obesity (BMI 30-39.9) History of colon polyps Hemorrhoids Diverticulosis Hx of gout History of diverticulitis Arthritis GERD (gastroesophageal reflux disease) Depression Elevated cholesterol HTN (hypertension) Asthma Surgical History History of appendectomy History of elbow surgery (~2011) History of left oophorectomy (~2008) History of colonoscopy (~2019) History of colectomy (~2008) Family History Family History Father Myocardial infarction Mother Lung cancer Maternal Aunt Leukemia Social History Social History Household Members: Family Housing: House Alcohol intake: never Patient Tobacco Use Status: Current everyday Tobacco user Tobacco use type: Cigarette Cigarette Packs Per Day: 0.5 Cigarettes Per Day: 8 Years Smoked: onset 14, 1/2ppd x 51 yrs, 25PYH Smoked in Last 30 Days: Yes e-Cigarette/Vaping Use: Never Used Second Hand Smoke Exposure: No Use of substances other than those prescribed or required for medical reasons: No Advance Directives: No Advance Directives Information Provided: Yes Do you have a plan to hurt others: No Plan Current occupational status: retired Cognitive needs: No Hearing needs: No Vision needs: Yes Physical Exam ED Vital Signs: Vital Signs - 24 hr 01/16/24 10:28 01/16/24 13:22 01/16/24 14:31 Temperature 98.7 F 98.6 F Pulse Rate 70 64 63 Respiratory Rate 18 20 16 Blood Pressure 182/72 H 165/77 H 136/68 Pulse Oximetry 95 95 95 Oxygen Delivery Method Room Air Room Air Room Air 01/16/24 17:31 Temperature 98.6 F Pulse Rate 63 Respiratory Rate 16 Blood Pressure 136/68 Pulse Oximetry 95 Oxygen Delivery Method Room Air BMI result Body Mass Index 33.7 Course Course Course Narrative: RME performed by Whitney Kimball PA-C. Patient is a 68 year old assigned female at presenting to the emergency department with left lower quadrant abdominal pain. Patient states she has a history of diverticulitis and a colon resection. Patient has had diarrhea and feeling gassy. Detailed physical exam and review of systems are deferred to the pharmacy intern. Labs ordered. Patient placed back in the waiting room pending room availability and results. Reevaluation(s) Reevaluation #1: CT of the abdomen and pelvis revealing short segment of the proximal sigmoid colon with mural thickening pericolonic inflammatory changes consistent with acute diverticulitis, uncomplicated, tolerating oral intake. Will discuss clear liquid diet with slow progression and oral antibiotics; ciprofloxacin and metronidazole Time: 16:49 Medications Administered Discontinued Medications Generic Name Dose Route Start Last Admin Trade Name Freq PRN Reason Stop Dose Admin Sodium Chloride 1,000 mls @ 999 mls/hr 01/16/24 13:45 01/16/24 16:19 Ns IV 01/16/24 14:45 Infused .Q1H1M DEMETRIUS Infusion Iohexol 85 ml 01/16/24 15:29 01/16/24 15:29 Iohexol 350 Mg/Ml 100 Ml Infus..Btl IV 01/16/24 15:30 85 ml ONCE ONE Administration Metoclopramide HCl 10 mg 01/16/24 15:20 01/16/24 15:49 Metoclopramide Hcl 10 Mg/2 Ml Vial IVPUSH 01/16/24 15:21 10 mg ONCE ONE Administration Morphine Sulfate 2 mg 01/16/24 15:19 01/16/24 15:49 Morphine Sulfate 2 Mg/Ml Cartridge IVPUSH 01/16/24 15:20 2 mg ONCE ONE Administration Protocol Medical Decision Making Medical Decision Making [facility] Narrative: Patient is a 68-year-old female with past medical history of allergic rhinitis, arthritis, asthma/COPD, depression, diverticulitis with prior colon resection, hypercholesterolemia, GERD, hypertension, gout, peripheral neuropathy, psoriasis, obesity who presents emergency department for evaluation of left lower quadrant abdominal pain and diarrhea as per HPI. On examination she does have moderate left lower quadrant tenderness upon palpation, no rigidity or guarding of the abdomen. Will obtain CBC to evaluate for leukocytosis/ anemia, CMP and lipase to evaluate for abnormal electrolytes /abnormal renal function/ abnormal hepatic/biliary function, CT AP, and Urinalysis. Differential Diagnosis Differential Diagnoses: The differential diagnosis associated with the presentation includes (Diverticulitis, colitis, obstruction, viral syndrome, colitis, muscular strain) Admission/Observation Consideration of admission/observation: Escalation of care including admission/observation considered Lab Data [facility] Lab Attestation statement: I reviewed the patient's lab results. CBC reveals a mild leukocytosis 11,300 with left shift, no anemia, mild thrombocytopenia 138,000-chronic. Chemistries without electrolyte derangement, RAYMOND, LFT abnormality. Urinalysis ___ 01/16/24 10:39 01/16/24 10:39 Labs: Lab Results 01/16/24 01/16/24 Range/Units 10:39 14:44 WBC 11.3 H (4.8-10.8) X10*3/uL RBC 5.04 (4.20-5.50) X10*6/uL Hgb 15.3 (12.0-16.0) g/dl Hct 42.1 (37.0-47.0) % MCV 83.5 (80.0-98.0) fL MCH 30.4 (27.0-33.0) pg MCHC 36.3 H (31.0-35.0) g/dl RDW 14.3 (11.0-16.0) % Plt Count 138 L (160-400) X10*3/uL MPV 9.5 (9.4-12.3) fL Immature Gran % (Auto) 0.4 (0.0-0.4) % Neut % (Auto) 76.3 H (45-73) % Lymph % (Auto) 14.6 L (20-40) % [place] % (Auto) 7.4 (2-11) % Eos % (Auto) 0.9 (0-4) % Baso % (Auto) 0.4 (0-2) % Lymph # (Auto) 1.6 (1.2-4.9) X10*3/uL [place] # (Auto) 0.8 (0.1-1.2) X10*3/uL Eos # (Auto) 0.1 (0.0-0.4) X10*3/uL Baso # (Auto) 0.0 (0.0-0.2) X10*3/uL Abs Immat Gran (auto) 0.04 H (0.00-0.03) X10*3/uL Absolute Neuts (auto) 8.6 H (2.0-8.3) x10*3/uL Absolute Nucleated RBC 0.000 (0.0-0.012) X10*3/uL Nucleated RBC % (auto) 0.0 (0.0-0.2) /100WBC Sodium 140 (135-145) mmol/L Potassium 3.9 (3.3-5.1) mmol/L Chloride 106 (96-108) mmol/L Carbon Dioxide 24 (22-29) mmol/L Anion Gap 14 (12-20) BUN 15 (9-16) mg/dL Creatinine 0.86 (0.5-1.4) mg/dL Estim Creat Clear Calc 61.0 Estimated GFR > 60 Random Glucose 101 (60-115) mg/dL Calcium 10.3 H (8.4-10.2) mg/dL Total Bilirubin 0.7 (0.0-1.0) mg/dL Direct Bilirubin 0.2 (0.0-0.5) mg/dL AST 13 (5-31) U/L ALT 13 (0-31) U/L Alkaline Phosphatase 96 (39-117) U/L Total Protein 7.6 (6.5-8.0) g/dL Albumin 4.3 (3.5-5.0) g/dL Urine Color Yellow Urine Appearance Clear Urine pH 5.5 (5.0-9.0) Ur Specific Humphreys 1.020 (1.005-1.025) Urine Protein 30 (1+) H (Neg-Trace) mg/dL Urine Glucose (UA) Negative (Negative) mg/dL Urine Ketones Negative (Negative) mg/dL Urine Blood Trace H (Negative) Urine Nitrite Negative (Negative) Ur Leukocyte Esterase Negative (Negative) Urine RBC 0-2 (0-2) /HPF Urine WBC 0-5 (0-5) /HPF Ur Squamous Epith Cells 0-2 (0-2) /HPF Urine Bacteria None Seen (None Seen) Hyaline Casts 0-2 (0-2) /LPF Radiology Impression Discussion of test interpretation with radiology: I have reviewed the radiologist's reading. Radiologist Impression: CT/CT abdomen pelvis w IV con IMPRESSION: There is descending and sigmoid colon diverticulosis. There is a short segment of proximal sigmoid colon which demonstrates mural thickening and pericolonic inflammatory stranding consistent with acute diverticulitis. Splenomegaly. Prominent retroperitoneal lymph nodes not significantly changed since prior examination dated November 12, 2021. External Record Review External record reviewed: Outpatient record Critical Care Time Critical Care Time Critical Care Time: Yes Total Critical Care Time: 35 Attestation: I personally attest to this critical care time spent taking care of the patient exclusive of all other billable procedures was approximately 35 minutes including initial evaluation of patient, ordering tests, CT interpretation, morphine for pain management and re-evaluation,, medical consultation, documentation, re-evaluation. Discharge Plan Discharge Clinical Impression: Diverticulitis Patient Disposition: Home, Self-Care Instructions: Diverticulitis (ED), Diverticulitis Diet (ED) Additional Instructions: Contact your primary care provider to arrange for a follow-up visit. Consumed clear liquid diet for the next 2 days followed by slow progression of a bland diet; including crackers, bananas, rice, soup, toast, and boiled vegetables. This may progress to plain baked or boiled chicken or turkey. Avoid dairy products or foods high in fat or grease. Prescriptions: New ciprofloxacin HCl 500 mg tablet 500 mg PO BID Qty: 14 0RF metronidazole 500 mg tablet 500 mg PO Q8H Qty: 21 0RF No Action Incruse Ellipta 62.5 mcg/actuation blister with device 1 inh inhalation BEDTIME Qty: 30 12RF pravastatin 20 mg tablet 20 mg PO BEDTIME Qty: 90 3RF Breo Ellipta 100-25 mcg/dose blister with device 1 ea PO DAILY Qty: 180 3RF clotrimazole 1 % cream 1 appl topical BID 28 Days Qty: 45 0RF miconazole nitrate [Zeasorb AF] 2 % powder 1 appl topical BID Qty: 85 0RF fluticasone propionate [Flonase Allergy Relief] 50 mcg/actuation spray,suspension 2 spray intranasal DAILY Qty: 16 0RF Rx Instructions: administer into each nostril albuterol sulfate 90 mcg/actuation HFA aerosol inhaler 2 puff PO Q4-6H PRN (Reason: wheezing) gabapentin 100 mg capsule 100 mg PO BEDTIME Qty: 30 1RF (DME) blood pressure monitor [Blood Pressure Kit] Kit See Rx Instructions .ROUTE .MEDSUPPLY Qty: 1 0RF Rx Instructions: As directed secukinumab 150 mg/mL pen injector 300 mg subcut Q4W sertraline 100 mg tablet 150 mg PO DAILY Qty: 180 3RF Rx Instructions: 06/2022 has been taking 100 mg only ., so will increase to 150 mg sucralfate 1 gram tablet 1 g PO BID 90 Days Qty: 180 2RF bupropion HCl 150 mg tablet extended release 24 hr 150 mg PO BID Qty: 180 1RF omeprazole 20 mg capsule,delayed release(DR/EC) 20 mg PO DAILY Qty: 90 2RF lisinopril-hydrochlorothiazide 20-12.5 mg tablet 1 tab PO BID Qty: 60 4RF Referrals: Danny,Prashant Fabian MD [Primary Care Provider] - Interventions: ED Discharge Assessment Last Done: 01/16/24 17:31 Discharge Date/Time: 01/16/24 17:52 Print Language: Armenian
[2024-01-16 14:31] VITALS: BP 136/68; PULSE 63; RESP 16; O2SAT 95
[2024-01-16 14:51] LABS: Appearance Urine Clear; Color Urine Yellow; Glucose Urine UA Negative (Negative); Leukocyte Esterase Urine Negative (Negative); Nitrite Urine Negative (Negative); PH 5.5 (5.0-9.0); UMIC TRIGGER UACC YES; Urine Blood Trace (Negative); Urine Ketones Negative (Negative); Urine Protein 30 (1+) mg/dL (Neg-Trace)
[2024-01-16 14:55] LABS: Bacteria Urine None Seen (None Seen); Hyaline Casts Urine 0-2 /LPF (0-2); RBC Urine 0-2 /HPF (0-2); Squamous Epithelial Cell Urine 0-2 /HPF (0-2); WBC Urine 0-5 /HPF (0-5)
[2024-01-16] MEDS: 0.9 % Sodium Chloride 1,000 ML 999 ML IV (15:14)
[2024-01-16] MEDS: iohexoL 350 MG/ML 100 ML INFUS..BTL 85 ML IV (15:29)
[2024-01-16] MEDS: Morphine Sulfate 2 MG/ML CARTRIDGE IVPUSH (15:49)
[2024-01-16] MEDS: Metoclopramide HCl 10 MG/2 ML VIAL IVPUSH (15:49)
[2024-01-16 17:31] VITALS: BP 136/68; PULSE 63; RESP 16; TEMP 37; O2SAT 95
== END 2024-01-16 17:52 | disposition home or self-care (01) ==
PROVIDERS: Physician Assistant Medical; Emergency Provider Emergency Medicine Emergency Medical Services; PCP Internal Medicine
DX: K57.32 Diverticulitis of large intestine without perforation or abscess without bleeding (principal); R10.32 Left lower quadrant pain; I10 Essential (primary) hypertension; E78.5 Hyperlipidemia, unspecified; J45.909 Unspecified asthma, uncomplicated; F17.210 Nicotine dependence, cigarettes, uncomplicated; Z79.899 Other long term (current) drug therapy; Z79.02 Long term (current) use of antithrombotics/antiplatelets
CPT/HCPCS: 36415; 74177; 80053; 81001; 82248; 85025; 96361; 96374; 96375; 99284; J2270; J2765; Q9967

== ENCOUNTER 2024-04-05 11:15 | Outpatient (REF) | payer MEDICARE, SELFPAY | END 2024-04-05 11:16 | disposition home or self-care (01) | LOC: HO.CT 11:15 | PROVIDERS: PCP Internal Medicine; Visit Provider Physician Assistant Medical | DX: Z12.2 Encounter for screening for malignant neoplasm of respiratory organs (principal); F17.210 Nicotine dependence, cigarettes, uncomplicated | CPT/HCPCS: 71271 ==

== ENCOUNTER 2024-04-12 10:59 | Outpatient (AMB) | payer MEDICARE, SELFPAY ==
[2024-04-12 11:02] VITALS: BP 134/80; PULSE 59; O2SAT 95; BMI 32.4
--- NOTE | 2024-04-12 11:02 | MHC.PC.OV ---
Vital Signs 04/12/24 11:02 Height 5 ft 2 in Weight 177 lb BMI 32.4 BP 134/80 Blood Pressure Location Lt brachial Position Sitting Pulse 59 Pulse Source Pulse Oximeter Pulse Oximetry (%) 95 Oxygen Delivery Method Room Air Intake Visit Reasons: 3 mo f/u HTN Change House Attendant Required: No Allergies ondansetron [From ZOFRAN] Allergy (Severe, Verified 04/12/24 11:07) HIVES atorvastatin Adverse Reaction (Intermediate, Verified 04/12/24 11:07) leg cramps codeine [Codeine] Adverse Reaction (Intermediate, Verified 04/12/24 11:07) UPSET STOMACH Penicillins Adverse Reaction (Intermediate, Verified 04/12/24 11:07) UPSET STOMACH Medication List - Last Reconciled 04/12/24 by Wanda Mosquera PA-C albuterol sulfate 90 mcg/actuation 2 puffs PO Q4-6H PRN blood pressure monitor (Blood Pressure Kit) As directed bupropion HCl XL 150 mg PO BID clotrimazole 1% 1 appl topical BID 4 weeks fluticasone furoate-vilanterol 100-25 mcg/dose (Breo Ellipta) 1 ea PO DAILY fluticasone propionate 50 mcg/actuation (Flonase Allergy Relief) 2 sprays intranasal DAILY gabapentin 100 mg PO BEDTIME lisinopril-hydrochlorothiazide 20-12.5 mg 1 tab PO BID metronidazole 500 mg PO Q8H miconazole nitrate 2% (Zeasorb AF) 1 appl topical BID omeprazole 20 mg PO DAILY pravastatin 20 mg PO BEDTIME secukinumab 300 mg subcut Q4W sertraline 150 mg (1.5 x 100 mg) PO DAILY sucralfate 1 g PO BID 90 days umeclidinium 62.5 mcg/actuation (Incruse Ellipta) 1 inh inhalation BEDTIME Tobacco use date assessed: 01/07/24 Fall risk assessment: No Falls in past year Last assessed Fall Risk: 04/12/24 Dental Screening Dental Screen Date: 01/07/24 HPI 3 mo f/u HTN HPI Details 68-year-old obese female smoker with hypertension, hypercholesterolemia, COPD, generalized anxiety disorder and GERD last seen by Dr. Delgado December 2023 coming in for follow up.? In review of the notes patient was [place] [facility] [place] for diverticulitis given ciprofloxacin and metronidazole and advised a bland diet. Patient states she has been losing weight and feeling better since her last visit. She does have 1 concern today the itchy rash under her breasts and in the skin folds of her groin have been intermittent over the last several months. She was being treated with clotrimazole and topical nystatin powder and states the rash initially improved but has returned and we will wax and wane. [facility] Medical History Nicotine dependence, cigarettes, uncomplicated Breast cancer screening by mammogram Hip pain Peripheral neuropathy Tarsal tunnel syndrome Pulmonary nodule Allergic rhinitis Psoriasis Vitamin D deficiency COPD (chronic obstructive pulmonary disease) Obesity (BMI 30-39.9) History of colon polyps Hemorrhoids Diverticulosis Hx of gout History of diverticulitis Arthritis GERD (gastroesophageal reflux disease) Depression Elevated cholesterol HTN (hypertension) Asthma Surgical History History of appendectomy History of elbow surgery (~2011) History of left oophorectomy (~2008) History of colonoscopy (~2019) History of colectomy (~2008) Family History Father Myocardial infarction Mother Lung cancer Maternal Aunt Leukemia Social History Household Members: Family Housing: House Alcohol intake: never Patient Tobacco Use Status: Current everyday Tobacco user Tobacco use type: Cigarette Cigarette Packs Per Day: 0.5 Cigarettes Per Day: 8 Years Smoked: onset 14, 1/2ppd x 49 yrs, 25PYH e-Cigarette/Vaping Use: Never Used Second Hand Smoke Exposure: No Current occupational status: retired Cognitive needs: No Hearing needs: No Vision needs: Yes Questionnaire Thrive Questionnaire Date Thrive assessed: 07/14/23 AUDIT C Alcohol Use Questionnaire (AUDIT-C) 1. How often do you have a drink containing alcohol?: Never 2. How many drinks containing alcohol do you have on a typical day when you are drinking?: 1 or 2 (0) 3. How often do you have six or more drinks on one occasion?: Never Total Score: 0 LISANDRO-7 AMB Questionnaire LISANDRO-7 Date LISANDRO - 7 assessed: 05/20/23 Source: Developed by Drs. Chandrakant Sosa, Danae Linder, Han Almodovar and colleagues, with an educational mauro from [employer]. Review of Systems Const Denies body aches, Denies chills, Denies fever(s), Denies headache(s) and Denies poor appetite Eyes Reports no additional complaints ENT Denies headache(s) Card Denies chest pain, Denies irregular heart rhythm, Denies lightheadedness and Denies dyspnea Resp Denies cough and Denies dyspnea GI Denies abdominal pain, Denies constipation, Denies diarrhea, Denies nausea and Denies vomiting Reports no additional complaints Musc Reports no additional complaints and Denies abnormal gait Skin/Breast Reports system reviewed and no additional complaints, except as documented Neuro Denies abnormal gait and Denies headache(s) Psych Reports no additional complaints Physical exam (Primary Care) Vital Signs: Last Vital Signs Pulse 59 04/12/24 11:02 BP 134/80 04/12/24 11:02 Pulse Ox 95 04/12/24 11:02 Oxygen Delivery Method Room Air 04/12/24 11:02 BMI result Body Mass Index 32.4 Tobacco/Smoking Status: Tobacco use Status Tobacco use date assessed 01/07/24 04/12/24 11:03 Patient Tobacco Use Status Current everyday Tobacco 04/12/24 11:03 Tobacco use type Cigarette 04/12/24 11:03 e-Cigarette/Vaping Use Never Used 04/12/24 11:03 Thrive Assessment: Date of Thrive Assessment Date Thrive assessed 07/14/23 04/12/24 11:03 Const General: cooperative, healthy appearing, comfortable and no acute distress Orientation/consciousness: patient oriented x3 HENMT Head: Yes normocephalic Ears: hearing grossly normal bilaterally General nose exam: Normal external nose present Eyes General: appearance normal, both eyes and all related structures Conjunctivae: conjunctivae normal Neck Neck: Yes full ROM and Yes no lymphadenopathy Chest Other: Scattered erythematous rash with satellite lesions under bilateral breasts Resp Effort & Inspection: normal respiratory effort Auscultation: clear to auscultation bilaterally, no crackles, no rales, no rhonchi and no wheezes Cardio Rate: regular rate Rhythm: regular rhythm Other: Scattered erythematous rash with satellite lesions without open skin Skin General skin exam: no rashes or lesions noted Neuro General: patient oriented x3 Gait exam (Neuro): Normal gait present Extrem General: Yes normal to inspection, Yes full ROM and No edema Psych Affect: normal affect Attitude: cooperative Insight: Good insight present (Psych) Judgement: Good judgement present (Psych) Coding Level of Care Code Est Pt Level 4 (79740) Diagnoses Nicotine dependence, cigarettes, uncomplicated F17.210 GERD (gastroesophageal reflux disease) K21.9 Pulmonary emphysema, unspecified emphysema type J43.9 COPD type: emphysema Emphysema type: unspecified Obesity (BMI 30-39.9) E66.9 Essential hypertension I10 Hypertension type: essential hypertension Candidal dermatitis B37.2 Assessment & Plan Assessment & Plan (1) Nicotine dependence, cigarettes, uncomplicated: Comment: (onset 14, 1/2ppd x 49yrs, 25PYH, +fam hx lung ca) Code(s): F17.210 - Nicotine dependence, cigarettes, uncomplicated Category: Medical Plan: Smoking cigarettes and the use of tobacco can be harmful. We discussed the importance of stopping and options to aid in smoking cessation. (2) GERD (gastroesophageal reflux disease): Code(s): K21.9 - Gastro-esophageal reflux disease without esophagitis Category: Medical Plan: Avoid trigger foods such as citrus, tomato products, soda, caffeine, spicy foods and other foods that may be irritating to your stomach. Avoid laying flat 3-4 hours after eating and elevate the head of the bed 30 degrees to prevent acid from moving into the esophagus. Continue on omeprazole (3) COPD (chronic obstructive pulmonary disease): Code(s): J44.9 - Chronic obstructive pulmonary disease, unspecified Category: Medical Qualifiers: COPD type: emphysema Emphysema type: unspecified Qualified Code(s): J43.9 - Emphysema, unspecified Plan: Continue on inhalers. Strongly advised to stop smoking! (4) Obesity (BMI 30-39.9): Code(s): E66.9 - Obesity, unspecified Category: Medical Plan: Healthy diet and regular exercise is encouraged. (5) HTN (hypertension): Code(s): I10 - Essential (primary) hypertension Category: Medical Qualifiers: Hypertension type: essential hypertension Qualified Code(s): I10 - Essential (primary) hypertension Plan: Continue on current blood pressure medication. Avoid salt intake and encourage healthy diet and regular exercise. Not currently on medical management and blood pressure at goal today 134/80 (6) Candidal dermatitis: Code(s): B37.2 - Candidiasis of skin and nail Category: Medical Plan: Patient has been using topical clotrimazole and miconazole powder mild relief. She states the itching has been the most bothersome symptom. Initially the rash did clear with using clotrimazole however did return. We will trial switching topical antifungal to ketoconazole to be used for 4 weeks. Once rash has cleared use miconazole powder for prevention and maintenance therapy. We will also prescribe a low-dose topical corticosteroid to help with the itching to be used in conjunction with ketoconazole cream for no longer than 1 week. Plan This note was constructed using voice recognition software. While every effort has been made to ensure accuracy and teacher of the emotionally disturbed, still areas may have been included sometimes these areas may affect the content or meeting of the given symptoms. Total time spent caring for the patient today was 20 minutes. This includes time spent before the visit reviewing the chart, time spent during the visit, and time spent after the visit and documentation. Orders: Orders Hemoglobin A1c Today E11.65 - Type 2 diabetes mellitus with hyperglycemia Medications: New hydrocortisone 2.5% To be used in combination with topical antifungal for itching 1 appl topical BID 1 week PRN 20 grams 0RF itching ketoconazole 2% 1 appl topical DAILY 4 weeks 30 grams 0RF Discontinued clotrimazole 1% Discontinued Reason: Patient no longer taking 1 appl topical BID 4 weeks 45 grams 0RF
== END 2024-04-12 11:38 | disposition home or self-care (01) ==
PROVIDERS: PCP Internal Medicine
DX: J43.9 Emphysema, unspecified (principal); F17.210 Nicotine dependence, cigarettes, uncomplicated; Z68.32 Body mass index [BMI] 32.0-32.9, adult; E66.9 Obesity, unspecified; K21.9 Gastro-esophageal reflux disease without esophagitis; I10 Essential (primary) hypertension; B37.2 Candidiasis of skin and nail

== ENCOUNTER → 2024-04-12 10:59 | Outpatient (BNVA) | payer MEDICARE, SELFPAY | PROVIDERS: PCP Internal Medicine | DX: K21.9 Gastro-esophageal reflux disease without esophagitis (principal); J43.9 Emphysema, unspecified; E66.9 Obesity, unspecified; I10 Essential (primary) hypertension; B37.2 Candidiasis of skin and nail; F17.210 Nicotine dependence, cigarettes, uncomplicated; Z71.6 Tobacco abuse counseling | CPT/HCPCS: 99212 ==

== ENCOUNTER 2024-07-07 10:48 | Outpatient (AMB) | payer MEDICARE, SELFPAY ==
[2024-07-07 10:58] VITALS: BP 142/78; PULSE 62; O2SAT 95; BMI 33.5
--- NOTE | 2024-07-07 10:58 | A.OFFPC_ITS ---
Vital Signs 07/07/24 10:58 Height 5 ft 2 in Weight 183 lb BMI 33.5 BP 142/78 H Blood Pressure Location Lt brachial Position Sitting Pulse 62 Pulse Source Pulse Oximeter Pulse Oximetry (%) 95 Oxygen Delivery Method Room Air Intake Visit Reasons: cant lift right arm Allergies ondansetron [From ZOFRAN] Allergy (Severe, Verified 07/07/24 10:58) HIVES atorvastatin Adverse Reaction (Intermediate, Verified 07/07/24 10:58) leg cramps codeine [Codeine] Adverse Reaction (Intermediate, Verified 07/07/24 10:58) UPSET STOMACH Penicillins Adverse Reaction (Intermediate, Verified 07/07/24 10:58) UPSET STOMACH Medication List - Last Reconciled 07/07/24 by Prashant Delgado, albuterol sulfate 90 mcg/actuation 2 puffs PO Q4-6H PRN blood pressure monitor (Blood Pressure Kit) As directed bupropion HCl XL 150 mg PO .QD fluticasone furoate-vilanterol 100-25 mcg/dose (Breo Ellipta) 1 ea PO DAILY fluticasone propionate 50 mcg/actuation (Flonase Allergy Relief) 2 sprays intranasal DAILY gabapentin 100 mg PO BEDTIME hydrocortisone 2.5% 1 appl topical BID PRN 1 week ketoconazole 2% 1 appl topical DAILY 4 weeks lisinopril-hydrochlorothiazide 20-12.5 mg 1 tab PO BID miconazole nitrate 2% (Zeasorb AF) 1 appl topical BID omeprazole 20 mg PO DAILY pravastatin 20 mg PO BEDTIME secukinumab 300 mg subcut Q4W sertraline 150 mg (1.5 x 100 mg) PO DAILY sucralfate 1 g PO BID 90 days umeclidinium 62.5 mcg/actuation (Incruse Ellipta) 1 inh inhalation BEDTIME Tobacco use date assessed: 07/07/24 Fall risk assessment: No Falls in past year Last assessed Fall Risk: 07/07/24 Dental Screening Dental Screen Date: 07/07/24 Did you have a dental visit in the last 12 months?: Yes Did you have a dental problem in the last 6 months where you did not have access to dental care?: No Was dental information given to patient?: Patient has dentist HPI cant lift right arm HPI Details R shouoldetr pain has been shoveling 1 week ago deny fall [facility] Medical History (Updated 07/07/24 @ 11:22 by Prashant Delgado MD) Nicotine dependence, cigarettes, uncomplicated Breast cancer screening by mammogram Hip pain Peripheral neuropathy Tarsal tunnel syndrome Pulmonary nodule Allergic rhinitis Psoriasis Vitamin D deficiency COPD (chronic obstructive pulmonary disease) Obesity (BMI 30-39.9) History of colon polyps Hemorrhoids Diverticulosis Hx of gout History of diverticulitis Arthritis GERD (gastroesophageal reflux disease) Depression Elevated cholesterol HTN (hypertension) Asthma Surgical History History of appendectomy History of elbow surgery (~2011) History of left oophorectomy (~2008) History of colonoscopy (~2019) History of colectomy (~2008) Family History Father Myocardial infarction Mother Lung cancer Maternal Aunt Leukemia Social History Household Members: Family Housing: House Alcohol intake: never Patient Tobacco Use Status: Current everyday Tobacco user Tobacco use type: Cigarette Cigarette Packs Per Day: 0.5 Cigarettes Per Day: 10 Years Smoked: onset 14, 1/2ppd x 51 yrs, 25PYH e-Cigarette/Vaping Use: Never Used Second Hand Smoke Exposure: No Current occupational status: retired Cognitive needs: No Hearing needs: No Vision needs: Yes Questionnaire PHQ-9 Over the last 2 weeks, how often have you been bothered by any of the following problems? 1. Little interest or pleasure in doing things: not at all 2. Feeling down, depressed, or hopeless: not at all 3. Trouble falling or staying asleep, or sleeping too much: not at all 4. Feeling tired or having little energy: not at all 5. Poor appetite or overeating: not at all 6. Feeling bad about yourself - or that you are a failure or have let yourself or your family down: not at all 7. Trouble concentrating on things, such as reading the newspaper or watching television: not at all 8. Moving or speaking so slowly that other people could have noticed. Or the opposite - being so fidgety or restless that you have been moving around a lot more than usual: not at all 9. Thoughts that you would be better off or of hurting yourself in some way: not at all Total score: 0 Depression Screening Interpretation: Negative Depression Screening Done: Yes Source: Developed by Drs. Chandrakant Sosa, Danae Linder, Han Almodovar and colleagues, with an educational mauro from [employer]. Thrive Questionnaire Date Thrive assessed: 07/07/24 I am a: Patient What is your living situation today?: I have a steady place to live Within the past 12 months, did the food you bought not last and you didn't have the money to get more?: Never true Within the past 12 months, did you worry whether your food would run out before you got money to buy more?: Never true Do you have trouble paying for medicines?: No Do you have trouble getting transportation to medical appointments?: No Do you have trouble paying your heating and electricity bill?: No Do you have trouble taking care of your child, family member or friend?: No Do you have trouble with day-to-day activities such as bathing, preparing meals, shopping, managing finances, etc.?: No Are you currently unemployed and looking for a job?: No Are you interested in more education?: No Currently or been in a relationship where the following occur: No concerns reported THRIVE Score: 0 AUDIT C Alcohol Use Questionnaire (AUDIT-C) 1. How often do you have a drink containing alcohol?: Never 2. How many drinks containing alcohol do you have on a typical day when you are drinking?: 1 or 2 (0) 3. How often do you have six or more drinks on one occasion?: Never Total Score: 0 LISANDRO-7 AMB Questionnaire LISANDRO-7 Date LISANDRO - 7 assessed: 07/07/24 Feeling nervous, anxious, or on edge: 0 = Not at all Not being able to stop or control worryin = Not at all Worrying too much about different things: 0 = Not at all Trouble relaxin = Not at all Being so restless that it is hard to sit still: 0 = Not at all Becoming easily annoyed or irritable: 0 = Not at all Feeling afraid as if something awful might happen: 0 = Not at all Total LISANDRO-7 score (0-4 normal; 5-9 mild; 10-14 moderate; 15-21 severe): 0 Source: Developed by Drs. Chandrakant Sosa, Danae Linder, Han Almodovar and colleagues, with an educational mauro from [employer]. Physical exam (Primary Care) Vital Signs: Last Vital Signs Pulse 62 07/07/24 10:58 BP 142/78 H 07/07/24 10:58 Pulse Ox 95 07/07/24 10:58 Oxygen Delivery Method Room Air 07/07/24 10:58 BMI result Body Mass Index 33.5 Tobacco/Smoking Status: Tobacco use Status Tobacco use date assessed 07/07/24 07/07/24 11:04 Patient Tobacco Use Status Current everyday Tobacco 07/07/24 11:04 Tobacco use type Cigarette 07/07/24 11:04 e-Cigarette/Vaping Use Never Used 07/07/24 11:04 PHQ-9: PHQ-9 Score PHQ-9: Total score 0 07/07/24 11:33 Depression Screening Interpretation: Negative Thrive Assessment: Date of Thrive Assessment Date Thrive assessed 07/07/24 07/07/24 11:04 Currently or been in a relationship where the following occur: No concerns reported Const General: alert; No acute distress Eyes Conjunctivae: conjunctivae normal Resp Auscultation: clear to auscultation bilaterally Cardio Rate: regular rate Rhythm: regular rhythm GI Inspection: Yes normal to inspection Extrem General: Yes normal to inspection and No edema Office Procedures Flu Questionnaire Does the patient have a severe egg allergy?: No Does the patient have severe life threatening allergies?: No Does the patient have a fever or illness today?: No Has the patient ever had Guillain-[place] Syndrome?: No Has the patient ever had any past reaction to a flu shot?: No Immunizations Fluarix Triv 6965-5420 (PF) 45 mcg (15 mcg x 3)/0.5 mL IM syringe Performing Provider: Prashant Delgado MD [facility] [place] [facility] Administered by: Esperanza Lange CMA on 07/07/24 11:34 Dose Route Admin Location Dispensed Lot Number Expiration Date [facility] Design Director 0.5 mL IM Left Deltoid 0.5 mL [id number] 11/08/24 [id number] [employer] VIS Given Date VIS Provided VIS Publication Date 07/07/24 Single Vaccine 20 Eligibility Eligibility Date Funding Source Not [facility] [place] Eligible 07/07/24 Private Coding Level of Care Code Est Pt Level 4 (45925) Complex EM visit Add On G2211 Diagnoses Coronary artery calcification seen on CAT scan I25.10 Nicotine dependence, cigarettes, uncomplicated F17.210 Pulmonary emphysema, unspecified emphysema type J43.9 COPD type: emphysema Emphysema type: unspecified Obesity (BMI 30-39.9) E66.9 Essential hypertension I10 Hypertension type: essential hypertension Elevated cholesterol E78.00 History of colon polyps Z86.010 Bicipital tendinitis of right shoulder M75.21 Assessment & Plan Assessment & Plan (1) Coronary artery calcification seen on CAT scan: Comment: noted on 04/2024 LDCT Code(s): I25.10 - Atherosclerotic heart disease of craig coronary artery without angina pectoris Category: Medical Plan: Control the cholesterol, weight, blood pressure, patient on pravastatin right now (2) Nicotine dependence, cigarettes, uncomplicated: Comment: (onset 14, 1/2ppd x 49yrs, 25PYH, +fam hx lung ca) 03/2024 Code(s): F17.210 - Nicotine dependence, cigarettes, uncomplicated Category: Medical Plan: Patient is strongly advised to stop smoking. Patient on the lung cancer screening program 03/31/[address] scan showing a left upper lobe 3 mm nodule stable (3) COPD (chronic obstructive pulmonary disease): Code(s): J44.9 - Chronic obstructive pulmonary disease, unspecified Category: Medical Qualifiers: COPD type: emphysema Emphysema type: unspecified Qualified Code(s): J43.9 - Emphysema, unspecified Plan: Patient is strongly advised to stop smoking on albuterol and Breo and Incruse (4) Obesity (BMI 30-39.9): Code(s): E66.9 - Obesity, unspecified Category: Medical Plan: Diet and exercise (5) HTN (hypertension): Code(s): I10 - Essential (primary) hypertension Category: Medical Qualifiers: Hypertension type: essential hypertension Qualified Code(s): I10 - Essential (primary) hypertension Plan: Continue with blood pressure medication. Decrease salt intake and exercise (6) Elevated cholesterol: Code(s): E78.00 - Pure hypercholesterolemia, unspecified Category: Medical Plan: Avoid fried foods, chicken skin, eggs, butter margarine, pastries and meat. Be it pork or beef they have a lot of cholesterol with the coronary artery calcification advised LDL below 70. (7) History of colon polyps: Comment: (3 polyps removed on 11/2018 colonoscopy including a 2.5 to 3 cms flat TVA. 02/2020 follow-up colonoscopy was negative) Code(s): Z86.010 - Personal history of colon polyps Category: Medical Plan: Patient is reminded about colonoscopy (8) Bicipital tendinitis of right shoulder: Code(s): M75.21 - Bicipital tendinitis, right shoulder Category: Medical Plan History of Present Illness The patient is a 68-year-old female presenting with right shoulder pain, explained by a recent incident involving snow shoveling. Active inflammation of the bicipital tendon is considered due to the pain?s anterior localization and the absence of trauma or radiating symptoms. The pain has acutely impacted her daily function and remains exacerbated by movement. Her existing chronic conditions, such as essential hypertension, hypercholesterolemia, and COPD, in conjunction with her smoking habit, necessitate thorough management. Although prior lung scans have shown stable nodules, the emphasis on smoking cessation remains critical. The patient has expressed notable anxiety about undergoing further colonoscopy after previous negative findings for FAP. Health Maintenance - Tobacco cessation counseling emphasized due to lung nodules. - Advised LDL levels to remain under 70 for cardiovascular health. - Flu vaccine to be administered, availability of COVID-19 and RSV vaccines to be confirmed at the pharmacy. - Scheduled follow-up for colonoscopy as previous testing indicated benign results, but periodic surveillance is recommended due to past polyp findings. Social History - Smoking: Chronic smoker, has been advised to quit multiple times. - Recent activity: Engaged in snow shoveling, which may have exacerbated current shoulder pain. - Health behavior: Anxiety and fear related to medical procedures, specifically colonoscopy. Review of Systems - Musculoskeletal: Reports right anterior shoulder pain, increased with movement. - Respiratory: Stable condition with COPD, managed with inhalers. - Gastrointestinal: Reports ongoing GERD symptoms managed with routine medications. - Psychological: Anxiety regarding medical procedures, specifically colonoscopy. Physical Exam Results - Imaging: A prior CT scan showed a stable 3 mm nodule in the left upper lobe of the lung. Plan Bicipital tendonitis will be addressed through physical therapy and conservative management strategies, including heat application and rest. Medication regimens for her chronic conditions, such as hypertensive and lipid management, will be continued as prescribed. Smoking cessation remains a priority, given the previous finding of stable lung nodules. Anxiety surrounding medical procedures like colonoscopy will be mitigated through reassurance and comprehensive discussion of previous negative findings. Vaccination plans are in place, ensuring adherence to preventive health measures. Patient was informed and verbally consented to the use of an ambient scribe for clinic note documentation during this visit. Discussion Notes I reviewed the findings and current management plans for the patient's musculoskeletal, respiratory, and cardiovascular health. We discussed the role of physical therapy in addressing her shoulder pain due to bicipital tendonitis, emphasizing joint mobility and timely intervention to prevent further complications. I explained the need for continued surveillance of lung health, reinforcing smoking cessation. Detailed discussions about procedural anxiety with colonoscopies were held, assuring her of the benign nature of prior findings and the importance of regular screening. Consent was obtained and understood regarding these management strategies. Vaccination against flu was highlighted, with detailed advice for accessing additional vaccines via pharmacy. Patient Instructions - Apply heat to the shoulder and avoid activities that exacerbate the pain. - Schedule and attend physical therapy sessions as part of pain management. - Continue current medications, and monitor blood pressure and cholesterol levels. - Prioritize smoking cessation efforts to improve respiratory health. - Attend the pharmacy for COVID-19 and RSV vaccinations, pursue flu vaccination as advised. - Prepare for the upcoming colonoscopy, understanding its preventive role after previous negative findings. - Monitor for and report any changes in symptoms or new health concerns promptly . Orders: Orders PT Evaluation and Treatment Today M75.21 - Bicipital tendinitis, right shoulder Influenza [id number] Immunization Today Z23 - Encounter for immunization Referrals Gastroenterology Referral Z86.010 - Personal history of colon polyps Medications: New meloxicam 15 mg PO DAILY 30 tabs 0RF M75.21 - Bicipital tendinitis, right shoulder Changed From bupropion HCl XL 150 mg PO BID 180 tabs 1RF F32.9 - Major depressive disorder, single episode, unspecified, F41.9 - Anxiety disorder, unspecified To bupropion HCl XL 150 mg PO .QD 90 tabs 1RF F32.9 - Major depressive disorder, single episode, unspecified, F41.9 - Anxiety disorder, unspecified Refilled umeclidinium 62.5 mcg/actuation (Incruse Ellipta) 1 inh inhalation BEDTIME 3 ea 3RF J43.9 - Emphysema, unspecified
--- OUTSIDE RECORDS SUMMARY | 2024-07-07 13:25 | XMS_ITS | Clinical Summary ---
Author Organization [facility] Address [address] [place] [address] Care Team Providers Care Yarrow Gatherer Name Role Phone Kentrell Mccullough MD Primary Care Provide r Surgical History Surgery Date Site/Laterality Comments TUBAL LIGATION PROCEDURE: HISTORICAL TUBAL LIGATION OOPHORECTOMY Bilateral PROCEDURE: HISTORICAL OOPHORECTOMY APPENDECTOMY PROCEDURE: HISTORICAL APPENDECTOMY BOWEL RESECTION 2008 PROCEDURE: HISTORICAL BOWEL RESECTION; COMMENT: Sigmoid resection COLONOSCOPY 11/26/2018 PROCEDURE: HISTORICAL COLONOSCOPY; COMMENT: diverticulosis, colon polyps, large internal hemorrhoids. Medical History Medical History Date Comments Hypercholesteremia 02/18/2019 DX:Hyperchole steremia Depression 02/18/2019 DX:Depression Asthma 02/18/2019 DX:Asthma Diverticulosis 02/18/2019 DX:Diverticulosi s HTN (hypertension) 02/18/2019 DX:HTN (hyper tension) Pulmonary nodule 02/18/2019 DX:Pulmonary no dule Tubular adenoma 02/18/2019 DX:Tubular adeno ma Anxiety 02/18/2019 DX:Anxiety COPD (chronic obstructive pu lmonary disease) ([facility]) 02/18/2019 DX:COPD (chronic obstructive pulmonary disease) ([facility]) GERD (gastroesophageal reflux disease) 9 DX:GERD (gastroesophageal reflux disease) Psoriasis 02/18/2019 DX:Psoriasis Severe obesity (BMI 35.0-35. 9 with comorbidity) ([facility]) 02/18/2019 DX:Severe obesity (BMI 35.0- 35.9 with comorbidity) ([facility]) Seizure ([facility]) 02/18/2019 DX:Seizure ([facility]); COMMENT: ? vaso vagal. 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 Family History Medical History Relation Name Comments Leukemia Aunt maternal Heart attack Father Lung cancer Mother Relation Name Status Comments Aunt maternal Father Mother Social History Tobacco Use Types Packs/Day Years Used Date Smoking Tobacco: Some Days Cigarettes Started: 05/12/1969 Smokeless Tobacco: Never Alcohol Use Standard Drinks/Week Comments No 0 (1 standard drink = 0.6 oz pur e alcohol) Comments Unknown Sex and Gender Information Value Date Recorded Sex Assigned at Not on file Legal Sex Female 3:25 PM EST Gender Identity Not on file Sexual Orientation Not on file Obstetrics History Plan of Treatment Health Maintenance Due Date Last Done Comments Breast Cancer Screening 1955 COVID-19 Vaccine (#1) 1958 DTaP,Tdap,and Td Vaccines (1 - Tdap) 1972 Zoster Vaccines (1 of 2) 12/06/2003 RSV Immunization Patients 60 + Years Old (1 - Risk 60-74 years 1-dose series) 2013 Pneumococcal Vaccine: 50+ Ye ars (2 of 2 - PCV) 06/10/2015 06/10/2014 Cholesterol Screening (Lipid Panel) 04/10/2022 Colorectal Cancer Screening: Colonoscopy 04/10/2022 Depression Screening 04/10/2022 Falls Risk Assessment 04/10/2022 Hepatitis C Screening 04/10/2022 Osteoporosis Screening (Bone Density Screening) 04/10/2022 Social Influencers of Health Screening 04/10/2022 Hypertension/CHF/CAD Annual BMP Blood Test 04/24/2022 Influenza Vaccine (#1) 2024 HIB Vaccines Aged Out No longer eligi ble based on patient's age to complete this topic HPV Vaccines Aged Out No longer eligi ble based on patient's age to complete this topic Hepatitis A Vaccines Aged Out No long er eligible based on patient's age to complete this topic Hepatitis B Vaccines Aged Out No long er eligible based on patient's age to complete this topic IPV Vaccines Aged Out No longer eligi ble based on patient's age to complete this topic MMR Vaccines Aged Out No longer eligi ble based on patient's age to complete this topic Meningococcal ACWY Vaccine Aged Out N o longer eligible based on patient's age to complete this topic Meningococcal B Vacine Aged Out No lo nger eligible based on patient's age to complete this topic RSV Immunization Patients Un heber 20 months Aged Out No longer eligible b ased on patient's age to complete this topic Varicella Vaccines Aged Out No longer eligible based on patient's age to complete this topic Care Teams Yarrow Gatherer Relationship Specialty Start Date End Date Kentrell Mccullough MD PCP - General Internal Medicine 12/31/18
== END 2024-07-07 11:43 | disposition home or self-care (01) ==
PROVIDERS: PCP Internal Medicine; Visit Provider Internal Medicine
DX: I25.10 Atherosclerotic heart disease of native coronary artery without angina pectoris (principal); J43.9 Emphysema, unspecified; E66.9 Obesity, unspecified; Z68.33 Body mass index [BMI] 33.0-33.9, adult; F17.210 Nicotine dependence, cigarettes, uncomplicated; I10 Essential (primary) hypertension; E78.00 Pure hypercholesterolemia, unspecified; Z86.0100 Personal history of colon polyps, unspecified; M75.21 Bicipital tendinitis, right shoulder; Z23 Encounter for immunization

== ENCOUNTER → 2024-07-07 10:48 | Outpatient (BNVA) | payer MEDICARE, SELFPAY | PROVIDERS: PCP Internal Medicine; Visit Provider Internal Medicine | DX: Z23 Encounter for immunization (principal); M75.21 Bicipital tendinitis, right shoulder; I25.10 Atherosclerotic heart disease of native coronary artery without angina pectoris; J43.9 Emphysema, unspecified; E66.9 Obesity, unspecified; Z68.33 Body mass index [BMI] 33.0-33.9, adult; E78.00 Pure hypercholesterolemia, unspecified; I10 Essential (primary) hypertension; Z86.0100 Personal history of colon polyps, unspecified; Z71.3 Dietary counseling and surveillance | CPT/HCPCS: 90471; 90656; 99212 ==

== ENCOUNTER 2024-07-15 12:51 | Outpatient (AMB) | payer MEDICARE, SELFPAY ==
--- NOTE | 2024-07-15 12:55 | A.OFFVIS_ITS ---
Vital Signs 07/15/24 12:56 Height 5 ft 2 in Weight 183 lb BMI 33.5 BP 140/62 H Blood Pressure Location Lt brachial Position Sitting Pulse Oximetry (%) 95 Oxygen Delivery Method Room Air Intake Visit Reasons: 5 years Colonoscopy recall Intake Note: Patient new consult for 5 years Colonoscopy recall. ERICA was 06/12/[address] Dueñas. Patient cc: acid reflex on and off, denies any other GI issues. Allergies ondansetron [From ZOFRAN] Allergy (Severe, Verified 07/15/24 12:54) HIVES atorvastatin Adverse Reaction (Intermediate, Verified 07/15/24 12:54) leg cramps codeine [Codeine] Adverse Reaction (Intermediate, Verified 07/15/24 12:54) UPSET STOMACH Penicillins Adverse Reaction (Intermediate, Verified 07/15/24 12:54) UPSET STOMACH Medication List - Last Reconciled 07/15/24 by Haim Dueñas MD blood pressure monitor (Blood Pressure Kit) As directed bupropion HCl XL 150 mg PO .QD fluticasone furoate-vilanterol 100-25 mcg/dose (Breo Ellipta) 1 ea PO DAILY fluticasone propionate 50 mcg/actuation (Flonase Allergy Relief) 2 sprays intra nasal DAILY gabapentin 100 mg PO BEDTIME guselkumab (Tremfya) 100 mg subcut .Q 12 weeks hydrocortisone 2.5% 1 appl topical BID PRN 1 week hydrocortisone 2.5% 1 appl SD BID-QID PRN 15 days lisinopril-hydrochlorothiazide 20-12.5 mg 1 tab PO BID omeprazole 20 mg PO DAILY pravastatin 20 mg PO BEDTIME sertraline 150 mg (1.5 x 100 mg) PO DAILY sucralfate 1 g PO BID 90 days umeclidinium 62.5 mcg/actuation (Incruse Ellipta) 1 inh inhalation BEDTIME HPI HPI 5 years Colonoscopy recall: Details: GI CLINIC VISIT FOR THIS 68-YEAR-OLD FEMALE FOR FOLLOW-UP OF COLON POLYPS. Patient was hospitalized from 11/27 to 11/29/18 with the right lower quadrant pain and was diagnosed with the post polypectomy syndrome. She was treated with antibiotics with improvement in her symptoms and discharged home on p.o. antibiotics for 5 days. CHRONIC ILLNESSES: depression, hypertension, hypercholesterolemia, anxiety, asthma, Gout TODAY'S VISIT: Pt complains of intermittent diarrhea (approx once a month) related to diet. Denies problems with milk products. Denies heartburn or dysphagia, rectal bleeding, recent change in appetite or weight. I do have a problem with hemorrhoids Hemorrhoids start to hurt if she use the bathroom 3 or more times. Denies a hx of snoring or sleep apnea Pt has COPD and Smokes 10 cigg/ day - sometimes less FH: Mom had diverticulosis - she denies known hx of colon polyps or GI malign iban. PAST VISIT: Colonoscopy and biopsy results were reviewed with the patient. Repeat colonoscopy was advised in 2 yrs. Patient states she is feeling well Having decreased appetite, diarrhea for the past 2 weeks. Vomited once. Complains of chills and denies fever. Having atleast 4 loose to watery BMs a day - stool floats in the toilet water. Intermittent abd cramps. Wt loss of 10 lbs over the past week. Yesterday had eggs with azeri muffin and cheese. Unable to eat on some days. Denies recent antibiotics Seen at an Urgent Care in [place] and had some Xrays and prescribed Dicyclomine. Admits to being under a lot of stress recently since she was in the process of moving in with her daughter LABS IN [facility]: 11/28/18 normal CBC with platelet count of 114, normal LFTs, albumin 4.6 lipase 7 IMAGING STUDIES: 11/27/[address] SCAN SHOWED: 1. No CT evidence of bowel perforation. 2. Postsurgical changes of from prior colonic resection. 3. Diverticulosis without CT evidence of acute diverticulitis. 4. Splenomegaly. 5. Stable mildly prominent periaortic lymph nodes. ENDOSCOPIC STUDIES: COLONOSCOPY WAS PERFORMED ON 03/07/20 Two diminutive polyps removed Nodular appearing mucosa in the cecum without recurrent polyps - random biopsies were obtained. Moderate diverticulosis seen in the left colon Moderate hemorrhoids on retroflexed exam. Plan: Patient has an appointment on 05/01/20 in the GI Clinic with Haim Dueñas M.D.-. Repeat Colonoscopy interval based on path results - in 1-2 years if polyps are adenomatous and 5 years if polyps are hyperplastic. She will need surgery if cecal biopsies showe presence of adenomatous tissue. Above findings were reviewed with the patient and colon polyps and diverticulosis handouts were given in the discharge area BIOPSIES SHOWED: A. Cecum, biopsy: Colonic mucosa with prominent lymphoid aggregates and mild surface hyperplastic changes; no dysplasia seen. B. Rectum, polyp, biopsy: Hyperplastic mucosal polyp. 11/26/2018 colonoscopy showed: Cecum Two 3-4 mm sessile polyps removed by cold biopsy and placed in specimen jar # 1 A 2.5 to 3 cms flat polyp raised with 9 cc of Orise solution and removed piecemeal with a hot snare. Remaining polypoidal tissue ablated with cautery using the snare tip. Descending Colon Moderate diverticulosis Sigmoid Colon Moderate diverticulosis Rectum A few 2-3 mm diminutive polyps Ano-rectum - Large internal hemorrhoids - likely source of hematochezia Colon preparation: Excellent Impression and Post Procedure Diagnosis: Colonoscopy Findings: Three polyps removed Moderate diverticulosis seen in the left colon Large hemorrhoids on retroflexed exam - likely source of hematochezia Plan: Patient has an appointment on 12/16/18 in the GI Clinic with Haim Dueñas M.D.-. Repeat Colonoscopy in 6 to 12 months to evaluate polypectomy site in the cecum if polyps in specimen jar # 2 is adenomatous and in 10 years if polyps are hyperplastic. Above findings were reviewed with the patient and colon polyps, diverticulosis and hemorrhoids handouts were given in the discharge area Addendum: Letter sent with biopsy results: A. Cecum, polypectomy #1: Fragments of tubular adenoma; no high grade dysplasia or carcinoma seen. B. Cecum, polypectomy #2: Fragments of tubulovillous adenoma; no high grade dysplasia or carcinoma seen. [facility] Medical History (Updated 07/07/24 @ 11:22 by Prashant Delgado MD) Nicotine dependence, cigarettes, uncomplicated Breast cancer screening by mammogram Hip pain Peripheral neuropathy Tarsal tunnel syndrome Pulmonary nodule Allergic rhinitis Psoriasis Vitamin D deficiency COPD (chronic obstructive pulmonary disease) Obesity (BMI 30-39.9) History of colon polyps Hemorrhoids Diverticulosis Hx of gout History of diverticulitis Arthritis GERD (gastroesophageal reflux disease) Depression Elevated cholesterol HTN (hypertension) Asthma Surgical History History of appendectomy History of elbow surgery (~2011) History of left oophorectomy (~2008) History of colonoscopy (~2019) History of colectomy (~2008) Family History Father Myocardial infarction Mother Lung cancer Maternal Aunt Leukemia Social History Household Members: Family Housing: House Alcohol intake: never Patient Tobacco Use Status: Current everyday Tobacco user Tobacco use type: Cigarette Cigarette Packs Per Day: 0.5 Cigarettes Per Day: 10 Years Smoked: onset 14, 1/2ppd x 51 yrs, 25PYH e-Cigarette/Vaping Use: Never Used Second Hand Smoke Exposure: No Current occupational status: retired Cognitive needs: No Hearing needs: No Vision needs: Yes Review of Systems Const Denies fever(s), Denies headache(s) and Denies weight loss Eyes Denies eye discharge and Denies irritation ENT Reports Normal hearing present, Denies dysphagia, Denies dizziness and Denies headache(s) Card Denies chest pain, Denies leg edema and Reports dyspnea on exertion Resp Reports cough, Reports dyspnea on exertion and Denies wheezing GI Denies abdominal pain, Denies change in bowel habits, Denies dysphagia and Denies heartburn Denies difficulty voiding and Denies dysuria Musc Denies back pain and Denies arthralgias Skin/Breast Denies pruritus, Denies rash and Denies jaundice Neuro Reports Normal hearing present, Denies Abnormal speech present, Denies dizziness, Denies headache(s) and Denies seizure-like activity Psych Reports anxiety, Reports depression and Denies panic attacks Endo Denies cold intolerance, Denies flushing and Denies heat intolerance Fabiano/Lymph Denies easy bleeding and Denies easy bruising Aller/Immun Denies wheezing Physical Exam Vital Signs: Oxygen Delivery Method Room Air 07/15/24 12:56 BMI result Body Mass Index 33.5 Const General: healthy appearing and no acute distress Nutritional Appearance: obese Orientation/consciousness: patient oriented x3 Limitations: no limitations HEENT Head: Yes normal to inspection Ears: hearing grossly normal bilaterally Eyes Sclerae: sclerae normal Pupils: Equal, round and reactive pupils present Neck Neck: Yes normal visual inspection Chest Chest palpation & inspection: normal inspection of the chest Resp Effort & Inspection: normal respiratory effort Auscultation: clear to auscultation bilaterally Cardio Palpation: normal PMI Rate: regular rate Rhythm: regular rhythm Heart sounds: S1 normal heart sound present, S2 normal heart sound present and no murmurs GI Palpation (GI): Soft to palpation, nontender and No hepatosplenomegaly present Auscultation: normal bowel sounds Rectal Exam - Female: deferred Skin General skin exam: no rashes or lesions noted Neuro General: patient oriented x3, gait normal and moves all extremities Cranial nerves: Yes Equal, round and reactive pupils present and Yes Normal hearing present Speech: No Abnormal speech present Psych Appearance: grossly normal Mental Status: mental status grossly normal Assessment & Plan Assessment & Plan (1) GERD (gastroesophageal reflux disease): Code(s): K21.9 - Gastro-esophageal reflux disease without esophagitis Category: Medical (2) History of colon polyps: Comment: (3 polyps removed on 11/2018 colonoscopy including a 2.5 to 3 cms flat TVA. 02/2020 follow-up colonoscopy was negative) Code(s): Z86.010 - Personal history of colon polyps Category: Medical (3) Hemorrhoids: Code(s): K64.9 - Unspecified hemorrhoids Category: Medical Plan 68 YF with depression, hypertension, hypercholesterolemia, anxiety, COPD, asthma, psoraiasis, Gout here to schedule a colonoscopy for FU of colon polyps. Pt is status post laprascopic sigmoid colectomy - Dr. Murphy, [facility] 09/22/200811/2018 Three polyps were removed during colonoscopy including a 2.5 to 3 cms flat TVA. 02/28 follow-up colonoscopy was negative (biopsies obtained from the cecum s howed prominent lymphoid aggregates and mild surface hyperplastic changes and no recurrent/residual polyp) Repeat colonoscopy was advised in 2 years (due 02/2022) Patient was advised to schedule a colonoscopy. Colonoscopy procedure and potential complications including bleeding, perforation, reaction to anesthetics were reviewed with the patient. Follow-up in 6 months Medications: New bisacodyl (Dulcolax (bisacodyl)) Take 4 tablets at 12 pm the day before colonoscopy appointment 20 mg (4 x 5 mg) PO ONCE 1 day 4 tabs 0RF colon prep hydrocortisone 2.5% 1 appl SD BID-QID 15 days PRN 30 grams 3RF hemorrhoids polyethylene glycol 3350 (Miralax) Mix Miralax with 64 oz(8 cups) of Crystal light. Take 2 tablets of Dulcolax qt 12 pm. Wait to have your 1st bowel movement, then begin drinking Miralax. Drink a glass of Miralax every 10-15 minutes until you are finished. You will drink at least another 4 cups of clear liquid of your choice over the next 2 hours. Please drink as many clear liquids as possible You may have clear liquids up to four hours before your procedure 17 grams PO DAILY 1 day 238 grams 0RF colon prep Coding Level of Care Code New Pt Level 4 (45438) Diagnoses GERD (gastroesophageal reflux disease) K21.9 History of colon polyps Z86.010 Hemorrhoids K64.9 Time Spent (min) 23
[2024-07-15 12:56] VITALS: BP 140/62; O2SAT 95; BMI 33.5
--- OUTSIDE RECORDS SUMMARY | 2024-07-15 15:30 | XMS_ITS | Clinical Summary ---
Author Organization [facility] Address [address] [place] [address] Care Team Providers Care Fur Vault Attendant Name Role Phone Kentrell Mccullough MD Primary [...] DX:Anxiety COPD (chronic obstructive pu lmonary disease) ([facility]) 02/18/2019 DX:COPD (chronic obstructive pulmonary disease) ([facility]) GERD (gastroesophageal reflux disease) 9 DX:GERD (gastroesophageal reflux disease) Psoriasis 02/18/2019 DX:Psoriasis Severe obesity (BMI 35.0-35. 9 with comorbidity) ([facility]) 02/18/2019 DX:Severe obesity (BMI 35.0- 35.9 with comorbidity) ([facility]) Seizure ([facility]) 02/18/2019 DX:Seizure ([facility]); COMMENT: [...] age to complete this topic Care Teams Fur Vault Attendant Relationship Specialty Start Date End Date Kentrell Mccullough MD PCP - General Internal Medicine 12/31/18
== END 2024-07-15 13:31 | disposition home or self-care (01) ==
PROVIDERS: PCP Internal Medicine; Visit Provider Internal Medicine Gastroenterology
DX: K21.9 Gastro-esophageal reflux disease without esophagitis (principal); Z86.0100 Personal history of colon polyps, unspecified; K64.9 Unspecified hemorrhoids
CPT/HCPCS: 99204

== ENCOUNTER → 2024-07-15 12:51 | Outpatient (BNVA) | payer MEDICARE, SELFPAY | PROVIDERS: PCP Internal Medicine; Visit Provider Internal Medicine Gastroenterology | DX: K21.9 Gastro-esophageal reflux disease without esophagitis (principal); K64.9 Unspecified hemorrhoids; Z86.0100 Personal history of colon polyps, unspecified | CPT/HCPCS: 99202 ==

== ENCOUNTER 2024-10-13 11:15 | Outpatient (AMB) | payer MEDICARE, SELFPAY ==
[2024-10-13 11:29] VITALS: BP 106/68; PULSE 66; O2SAT 96; BMI 32.8
--- NOTE | 2024-10-13 11:29 | A.OFFPC_ITS ---
Vital Signs 10/13/24 11:29 Height 5 ft 2 in Weight 179 lb 8 oz BMI 32.8 BP 106/68 Blood Pressure Location Lt brachial Position Sitting Pulse 66 Pulse Source Pulse Oximeter Pulse Oximetry (%) 96 Oxygen Delivery Method Room Air Intake Visit Reasons: COPD, Smoker Medical Administrative Specialist Required: No Accompanied by: Self / Same As Patient Allergies ondansetron [From ZOFRAN] Allergy (Severe, Verified 10/13/24 11:30) HIVES atorvastatin Adverse Reaction (Intermediate, Verified 10/13/24 11:30) leg cramps codeine [Codeine] Adverse Reaction (Intermediate, Verified 10/13/24 11:30) UPSET STOMACH Penicillins Adverse Reaction (Intermediate, Verified 10/13/24 11:30) UPSET STOMACH Medication List - Last Reconciled 10/13/24 by Prashant Delgado MD bisacodyl (Dulcolax (bisacodyl)) 20 mg (4 x 5 mg) PO ONCE 1 day blood pressure monitor (Blood Pressure Kit) As directed bupropion HCl XL 150 mg PO .QD fluticasone furoate-vilanterol 100-25 mcg/dose (Breo Ellipta) 1 ea PO DAILY fluticasone propionate 50 mcg/actuation (Flonase Allergy Relief) 2 sprays intranasal DAILY gabapentin 100 mg PO BEDTIME guselkumab (Tremfya) 100 mg subcut .Q 12 weeks hydrocortisone 2.5% 1 appl topical BID PRN 1 week hydrocortisone 2.5% 1 appl TN BID-QID PRN 15 days lisinopril-hydrochlorothiazide 20-12.5 mg 1 tab PO BID omeprazole 20 mg PO DAILY polyethylene glycol 3350 (Miralax) 17 grams PO DAILY 1 day pravastatin 20 mg PO BEDTIME sertraline 150 mg (1.5 x 100 mg) PO DAILY sucralfate 1 g PO BID 90 days umeclidinium 62.5 mcg/actuation (Incruse Ellipta) 1 inh inhalation BEDTIME Tobacco use date assessed: 10/13/24 Fall risk assessment: 1 Fall in past year Last assessed Fall Risk: 10/13/24 Dental Screening Dental Screen Date: 10/13/24 Did you have a dental visit in the last 12 months?: Yes Did you have a dental problem in the last 6 months where you did not have access to dental care?: No Was dental information given to patient?: Patient has dentist [facility] Medical History (Updated 10/13/24 @ 12:19 by Prashant Delgado MD) Breast cancer screening by mammogram Nicotine dependence, cigarettes, uncomplicated Hip pain Peripheral neuropathy Tarsal tunnel syndrome Pulmonary nodule Allergic rhinitis Psoriasis Vitamin D deficiency COPD (chronic obstructive pulmonary disease) Obesity (BMI 30-39.9) History of colon polyps Hemorrhoids Diverticulosis Hx of gout History of diverticulitis Arthritis GERD (gastroesophageal reflux disease) Depression Elevated cholesterol HTN (hypertension) Asthma Surgical History History of appendectomy History of elbow surgery (~2011) History of left oophorectomy (~2008) History of colonoscopy (~2019) History of colectomy (~2008) Family History Father Myocardial infarction Mother Lung cancer Maternal Aunt Leukemia Social History Household Members: Family Housing: House Alcohol intake: never Patient Tobacco Use Status: Current everyday Tobacco user Tobacco use type: Cigarette Cigarette Packs Per Day: 0.5 Cigarettes Per Day: 10 Years Smoked: onset 14, 1/2ppd x 49 yrs, 25PYH e-Cigarette/Vaping Use: Never Used Second Hand Smoke Exposure: No Current occupational status: retired Cognitive needs: No Hearing needs: No Vision needs: Yes Questionnaire PHQ-9 Over the last 2 weeks, how often have you been bothered by any of the following problems? 1. Little interest or pleasure in doing things: not at all 2. Feeling down, depressed, or hopeless: not at all 3. Trouble falling or staying asleep, or sleeping too much: not at all 4. Feeling tired or having little energy: not at all 5. Poor appetite or overeating: not at all 6. Feeling bad about yourself - or that you are a failure or have let yourself or your family down: not at all 7. Trouble concentrating on things, such as reading the newspaper or watching television: not at all 8. Moving or speaking so slowly that other people could have noticed. Or the opposite - being so fidgety or restless that you have been moving around a lot more than usual: not at all 9. Thoughts that you would be better off or of hurting yourself in some way: not at all Total score: 0 Source: Developed by Drs. Chandrakant Sosa, Danae Linder, Han Almodovar and colleagues, with an educational mauro from [employer]. Thrive Questionnaire Date Thrive assessed: 10/13/24 I am a: Patient What is your living situation today?: I have a steady place to live Within the past 12 months, did the food you bought not last and you didn't have the money to get more?: I choose not to answer this question Within the past 12 months, did you worry whether your food would run out before you got money to buy more?: I choose not to answer this question Do you have trouble paying for medicines?: I choose not to answer this question Do you have trouble getting transportation to medical appointments?: I choose not to answer this question Do you have trouble paying your heating and electricity bill?: I choose not to answer this question Do you have trouble taking care of your child, family member or friend?: I choose not to answer this question Do you have trouble with day-to-day activities such as bathing, preparing meals, shopping, managing finances, etc.?: No Are you currently unemployed and looking for a job?: I choose not to answer this question Are you interested in more education?: No Please select the resources that you would like help with: None Currently or been in a relationship where the following occur: I choose not to answer THRIVE Score: 0 AUDIT C Alcohol Use Questionnaire (AUDIT-C) 1. How often do you have a drink containing alcohol?: Never 3. How often do you have six or more drinks on one occasion?: Never Total Score: 0 LISANDRO-7 AMB Questionnaire LISANDRO-7 Date LISANDRO - 7 assessed: 10/13/24 Feeling nervous, anxious, or on edge: 0 = Not at all Not being able to stop or control worryin = Not at all Worrying too much about different things: 0 = Not at all Trouble relaxin = Not at all Being so restless that it is hard to sit still: 0 = Not at all Becoming easily annoyed or irritable: 0 = Not at all Feeling afraid as if something awful might happen: 0 = Not at all Total LISANDRO-7 score (0-4 normal; 5-9 mild; 10-14 moderate; 15-21 severe): 0 Source: Developed by Drs. Chandrakant Sosa, Danae Linder, Han Almodovar and colleagues, with an educational mauro from [employer]. Physical exam (Primary Care) Vital Signs: Last Vital Signs Pulse 66 10/13/24 11:29 BP 106/68 10/13/24 11:29 Pulse Ox 96 10/13/24 11:29 Oxygen Delivery Method Room Air 10/13/24 11:29 BMI result Body Mass Index 32.8 Tobacco/Smoking Status: Tobacco use Status Tobacco use date assessed 10/13/24 10/13/24 11:33 Patient Tobacco Use Status Current everyday Tobacco 10/13/24 11:33 Tobacco use type Cigarette 10/13/24 11:33 e-Cigarette/Vaping Use Never Used 10/13/24 11:33 PHQ-9: PHQ-9 Score PHQ-9: Total score 0 10/13/24 12:09 Thrive Assessment: Date of Thrive Assessment Date Thrive assessed 10/13/24 10/13/24 11:33 Currently or been in a relationship where the following occur: I choose not to answer Const General: alert; No acute distress Eyes Conjunctivae: conjunctivae normal Resp Auscultation: clear to auscultation bilaterally Cardio Rate: regular rate Rhythm: regular rhythm GI Inspection: Yes normal to inspection Extrem General: Yes normal to inspection and No edema Coding Level of Care Code Est Pt Level 4 (27171) Complex EM visit Add On G2211 Diagnoses Coronary artery calcification seen on CAT scan I25.10 Nicotine dependence, cigarettes, uncomplicated F17.210 GERD (gastroesophageal reflux disease) K21.9 Osteopenia M85.80 Generalized anxiety disorder F41.1 Pulmonary emphysema, unspecified emphysema type J43.9 COPD type: emphysema Emphysema type: unspecified Obesity (BMI 30-39.9) E66.9 Essential hypertension I10 Hypertension type: essential hypertension Elevated cholesterol E78.00 History of colon polyps Z86.010 Breast cancer screening by mammogram Z12.31 Bicipital tendinitis of right shoulder M75.21 Tinea corporis B35.4 Heel pain, bilateral M79.671; M79.672 Assessment & Plan Assessment & Plan (1) Coronary artery calcification seen on CAT scan: Comment: noted on 04/2024 LDCT Code(s): I25.10 - Atherosclerotic heart disease of [place] coronary artery without angina pectoris Category: Medical Plan: Control the cholesterol, weight, blood pressure, patient is going to be advised to take aspirin 81 mg once a day (2) Nicotine dependence, cigarettes, uncomplicated: Comment: (onset 14, 1/2ppd x 49yrs, 25PYH, +fam hx lung ca) 03/2024 Code(s): F17.210 - Nicotine dependence, cigarettes, uncomplicated Category: Medical Plan: Patient is strongly advised to stop smoking up-to-date with lung cancer screening (3) GERD (gastroesophageal reflux disease): Code(s): K21.9 - Gastro-esophageal reflux disease without esophagitis Category: Medical Plan: Avoid the foods that causes that usually spicy foods, tomato products, juices, coffee, soda and foods that your sensitive to. After eating do not lie down, allow 3-4 hours before in lie down. And keep the head of bed above 30 degrees to avoid the acid from going up. (4) Osteopenia: Code(s): M85.80 - Other specified disorders of bone density and structure, unspecified site Category: Medical Plan: Patient is reminded about bone density (5) Generalized anxiety disorder: Comment: Declined counseling 11/2021 Code(s): F41.1 - Generalized anxiety disorder Category: Medical Plan: Continue with gabapentin sertraline (6) COPD (chronic obstructive pulmonary disease): Code(s): J44.9 - Chronic obstructive pulmonary disease, unspecified Category: Medical Qualifiers: COPD type: emphysema Emphysema type: unspecified Qualified Code(s): J43.9 - Emphysema, unspecified Plan: Strongly advised to stop smoking, on Breo and albuterol as needed as also on Incruse (7) Obesity (BMI 30-39.9): Code(s): E66.9 - Obesity, unspecified Category: Medical Plan: Diet and exercise (8) HTN (hypertension): Code(s): I10 - Essential (primary) hypertension Category: Medical Qualifiers: Hypertension type: essential hypertension Qualified Code(s): I10 - Essential (primary) hypertension Plan: Continue with blood pressure medication. Decrease salt intake and exercise on lisinopril hydrochlorothiazide. Blood work requested (9) Elevated cholesterol: Code(s): E78.00 - Pure hypercholesterolemia, unspecified Category: Medical Plan: Avoid fried foods, chicken skin, eggs, butter margarine, pastries and meat. Be it pork or beef they have a lot of cholesterol LDL goal of less than 70 and triglyceride of less than 150 patient is on pravastatin 20 mg at bedtime (10) History of colon polyps: Comment: (3 polyps removed on 11/2018 colonoscopy including a 2.5 to 3 cms flat TVA. 02/2020 follow-up colonoscopy was negative) Code(s): Z86.010 - Personal history of colon polyps Category: Medical Plan: Patient has been recommended to have colonoscopy (11) Breast cancer screening by mammogram: Code(s): Z12.31 - Encounter for screening mammogram for malignant neoplasm of breast Category: Medical (12) Bicipital tendinitis of right shoulder: Code(s): M75.21 - Bicipital tendinitis, right shoulder Category: Medical (13) Breast cancer screening by mammogram: Code(s): Z12.31 - Encounter for screening mammogram for malignant neoplasm of breast Category: Medical (14) Tinea corporis: Comment: inframammary and groin Code(s): B35.4 - Tinea corporis Category: Medical (15) Heel pain, bilateral: Code(s): M79.671 - Pain in right foot; M79.672 - Pain in left foot Category: Medical Plan History of Present Illness The patient is a 68-year-old female presenting with a follow-up for several chronic medical conditions and new symptoms, including pain in the right shoulder, a rash beneath the breasts, and heel pain. Several chronic issues include essential hypertension?currently managed with lisinopril and hydrochlorothiazide?and hypercholesterolemia, with recent lab work showing slightly elevated blood sugar levels. There is a past positive history of coronary artery calcification on a CT scan, necessitating lipid management through pravastatin, aiming for specific LDL and triglyceride targets. She has a continued tobacco use habit, struggling to cease despite comprehensive counseling, complicating the COPD management regimen. The discussion included the right shoulder pain's prolonged presence, likely tendinitis without previous orthopedic intervention or radiological examination. Imaging was considered to precede any orthopedic referrals. Furthermore, her rash underneath the breast area, potentially a fungal infection, causes discomfort, and she started using antifungal therapeutic approaches. Heel pain was a complaint primarily in instances of rest but not upon palpation, and its possible sources?such as calluses or soft tissue issues?were observed, with podiatric evaluation suggested as essential. Health Maintenance - Colonoscopy is recommended; last scheduled attempt was canceled, and current due status. - Mammogram required, with the last performed in March 2023. - Bone density screening is necessary. - Lung cancer screening is current due to smoking history. - Shingles vaccination discussed with patient, encouraged for prevention. Social History - The patient is a current smoker with previous smoking cessation attempts advised. - Reports engaging in diet management and encouraged exercise. Review of Systems - General: Denies weight loss beyond 4 pounds. - Cardiovascular: Reports history of coronary artery disease. - Respiratory: Reports active tobacco use; on Breo, albuterol, and Incruse. - Gastrointestinal: Reports history of GERD. - Neurological: Reports generalized anxiety disorder; on sertraline. - Dermatological: Reports rash beneath breasts. - Musculoskeletal: Reports right shoulder tendinitis. - Endocrine: Denies significant changes in blood sugar beyond a mild elevation. Physical Exam - Musculoskeletal- Noted decreased motion in the right shoulder, suggestive of tendinitis. - Dermatological- Observed rash beneath breasts, consistent with intertrigo. Results - Labs: Mildly elevated fasting blood sugar at 101 mg/dL. - Cholesterol elevated; specific LDL and triglyceride goals stated. - Imaging: CT scan previously showed coronary artery calcification. Plan Hypercholesterolemia and calcified coronary arteries remain prioritized by continuing pravastatin therapy aimed at LDL and triglyceride benchmarks. Essential hypertension is managed effectively with lisinopril and hydrochlorothiazide. COPD management via inhaler use is ongoing while continuing smoking cessation counseling. Shoulder pain management includes orthopedics consult after imaging; an antifungal cream will treat the rash beneath the br easts. Heel pain assessment will lead to a podiatric referral. Scheduled screenings address potential gastrointestinal and osteoporotic risks. Opt-in consideration for the shingles vaccination reflects reducing possible viral complications, with all preventive health measures appropriately discussed. Patient was informed and verbally consented to the use of an ambient scribe for clinic note documentation during this visit. Discussion Notes I reaffirmed the need for continuous management of essential hypertension and hypercholesterolemia, emphasizing the importance of prospective lipid-level management given the coronary artery disease evidence. Concerns included COPD exacerbated by smoking, necessitating a cessation strategy. Addressing shoulder tendinitis warranted imaging precedes orthopedics review. Topical antifungals were recommended for intertrigo monitoring. Musculoskeletal symptoms in the heel informed further podiatric evaluation. We reviewed the preventative benefits of the shingles vaccine, balancing recent immunization schedule fatigue, and discussed continuing colonoscopy and bone density assessments. The patient acknowledged listed interventions and risks, understanding cessation and blood work pre-requisites. Patient Instructions - Continue taking pravastatin, lisinopril, and hydrochlorothiazide as directed. - Use antifungal cream as instructed under breasts twice daily. - Schedule and attend an x-ray for shoulder pain assessment. - Follow up with orthopedics for shoulder tendinitis. - Proceed to podiatry for evaluation of heel pain. - Maintain dietary controls and fasting before the next blood work. - Quit smoking to improve lung function. - Consider scheduling your shingles vaccination at the pharmacy. - Stay updated with colonoscopy, mammogram, and bone density tests. - Return immediately if symptoms exacerbate or new critical ones occur. Orders: Orders Hemoglobin A1c Today E11.65 - Type 2 diabetes mellitus with hyperglycemia MM tomosynthesis screening BI Today Z12.31 - Encounter for screening mammogram for malignant neoplasm of breast XR DEXA axial skeleton Today M81.0 - Age-related osteoporosis without current pathological fracture, M85.80 - Other specified disorders of bone density and structure, unspecified site XR shoulder RT min 2V Today M75.21 - Bicipital tendinitis, right shoulder Referrals Orthopedics Referral M75.21 - Bicipital tendinitis, right shoulder Podiatry Referral M79.671 - Pain in right foot, M79.672 - Pain in left foot Medications: New clotrimazole 1% 1 appl topical BID 45 grams 2RF 4 weeks B35.4 - Tinea corporis
--- OUTSIDE RECORDS SUMMARY | 2024-10-13 12:18 | XMS_ITS | Clinical Summary ---
Author Organization [facility] ity Address [address] [place] [address] Care Team Providers Care Conference Center Coordinator Name Role Phone Kentrell Mccullough MD Primary [...] DX:Anxiety COPD (chronic obstructive pu lmonary disease) ([facility] V24, [facility] V28) 02/18/2019 DX:COPD (chronic o bstructive pulmonary disease) ([facility]) GERD (gastroesophageal reflux disease) 9 DX:GERD (gastroesophageal reflux disease) Psoriasis 02/18/2019 DX:Psoriasis Severe obesity (BMI 35.0-35. 9 with comorbidity) ([facility] V24, [facility] V28) 02/18/2019 DX:Severe obes ity (BMI 35.0- 35.9 with comorbidity) ([facility]) Seizure ([facility] V24, [facility] V28) 02/18/2019 DX:Seizure ([facility]); COMMENT: ? vaso vagal. Tobacco use 02/18/2019 [...] Vaccines (1 of 2) 12/06/2003 RSV Immunization Adult Patie nts (1 - Risk 60-74 years 1-dose series) 2013 Pneumococcal Vaccine: 50+ Ye ars (2 of 2 - PCV) 06/10/2015 06/10/2014 Cholesterol Screening (Lipid Panel) 04/10/2022 Colorectal Cancer Screening: Colonoscopy 04/10/2022 Depression Screening 04/10/2022 Falls Risk Assessment 04/10/2022 Hepatitis C Screening 04/10/2022 Osteoporosis Screening (Bone Density Screening) 04/10/2022 Social Influencers of Health Screening 04/10/2022 Hypertension/CHF/CAD Annual BMP Blood Test 04/24/2022 Influenza Vaccine (Season Ended) 2025 HIB Vaccines Aged Out No longer eligi [...] age to complete this topic Meningococcal B Vaccine Aged Out No l onger eligible based on patient's age to complete this topic RSV Immunization Patients Un heber 20 months Aged Out No longer eligible b ased on patient's age to complete this topic Varicella Vaccines Aged Out No longer eligible based on patient's age to complete this topic Care Teams Conference Center Coordinator Relationship Specialty Start Date End Date Kentrell Mccullough MD PCP - General Internal Medicine 12/31/18
== END 2024-10-13 12:38 | disposition home or self-care (01) ==
LOC: HO.HMCH 11:21
PROVIDERS: PCP Internal Medicine; Visit Provider Internal Medicine
DX: I25.10 Atherosclerotic heart disease of native coronary artery without angina pectoris (principal); J43.9 Emphysema, unspecified; F17.210 Nicotine dependence, cigarettes, uncomplicated; K21.9 Gastro-esophageal reflux disease without esophagitis; M85.80 Other specified disorders of bone density and structure, unspecified site; F41.1 Generalized anxiety disorder; E66.9 Obesity, unspecified; I10 Essential (primary) hypertension; E78.00 Pure hypercholesterolemia, unspecified; Z86.0100 Personal history of colon polyps, unspecified; Z12.31 Encounter for screening mammogram for malignant neoplasm of breast; M75.21 Bicipital tendinitis, right shoulder

== ENCOUNTER → 2024-10-13 11:15 | Outpatient (BNVA) | payer MEDICARE, SELFPAY | PROVIDERS: PCP Internal Medicine; Visit Provider Internal Medicine | DX: I25.10 Atherosclerotic heart disease of native coronary artery without angina pectoris (principal); K21.9 Gastro-esophageal reflux disease without esophagitis; M85.80 Other specified disorders of bone density and structure, unspecified site; F41.1 Generalized anxiety disorder; J43.9 Emphysema, unspecified; E66.9 Obesity, unspecified; I10 Essential (primary) hypertension; E78.00 Pure hypercholesterolemia, unspecified; M75.21 Bicipital tendinitis, right shoulder; B35.4 Tinea corporis; M79.671 Pain in right foot; M79.672 Pain in left foot; Z86.0100 Personal history of colon polyps, unspecified; F17.210 Nicotine dependence, cigarettes, uncomplicated; Z71.6 Tobacco abuse counseling | CPT/HCPCS: 99212 ==

== ENCOUNTER 2024-10-14 11:31 | Outpatient (REF) | payer MEDICARE, SELFPAY ==
--- NOTE | ~2024-10-14 | XR_ITS ---
EXAMINATION: XR SHOULDER, RIGHT CLINICAL INFORMATION: Right shoulder pain, atraumatic M75.21 - Bicipital tendinitis, right shoulder COMPARISON: None available. TECHNIQUE: AP external rotation, Grashey, scapular Y, and axillary views of the right shoulder. FINDINGS: There are mild hypertrophic changes involving the AC joint. There is patchy sclerosis in the greater tuberosity and central surgical neck minimal extending into the humeral head of humerus. Sclerosis is not evident on the axillary view. Moderate-sized marginal osteophytes are seen instep. There is no cortical destruction or periosteal new bone formation. There is a moderate osteophyte at the margin of the medial humeral head and small osteophytes involving the glenoid. XR/XR shoulder RT min 2V IMPRESSION: Patchy sclerosis involving the margin of the humeral head on the AP projection is likely projectional and related to marginal osteophytes and moderate degenerative joint disease. Mild AC joint degeneration Electronically signed by: Serafin Varela MD 10/14/2024 12:29 PM EDT
--- OUTSIDE RECORDS SUMMARY | 2024-10-14 13:43 | XMS_ITS | Clinical Summary ---
Author Organization [facility] ity Address [address] [place] [address] Care Team Providers Care Portable Sawmill Operator Name Role Phone Kentrell Mccullough MD Primary [...] DX:Anxiety COPD (chronic obstructive pu lmonary disease) ([facility] V24, [facility] V28) 02/18/2019 DX:COPD (chronic o bstructive pulmonary disease) ([facility]) GERD (gastroesophageal reflux disease) 9 DX:GERD (gastroesophageal reflux disease) Psoriasis 02/18/2019 DX:Psoriasis Severe obesity (BMI 35.0-35. 9 with comorbidity) ([facility] V24, [facility] V28) 02/18/2019 DX:Severe obes ity (BMI 35.0- 35.9 with comorbidity) ([facility]) Seizure ([facility] V24, [facility] V28) 02/18/2019 DX:Seizure ([facility]); COMMENT: ? vaso vagal. Tobacco use [...] age to complete this topic Care Teams Portable Sawmill Operator Relationship Specialty Start Date End Date Kentrell Mccullough MD PCP - General Internal Medicine 12/31/18
== END 2024-10-14 11:32 | disposition home or self-care (01) ==
LOC: HO.XRAY 11:31
PROVIDERS: PCP Internal Medicine; Visit Provider Internal Medicine
DX: M75.21 Bicipital tendinitis, right shoulder (principal)
CPT/HCPCS: 73030

== ENCOUNTER → 2024-10-14 11:35 | Outpatient (BNV) | payer MEDICARE, SELFPAY | PROVIDERS: PCP Internal Medicine; Visit Provider Radiology Diagnostic Radiology | DX: M75.21 Bicipital tendinitis, right shoulder (principal) | CPT/HCPCS: 73030 ==

== ENCOUNTER 2024-11-19 07:42 | Day surgery (SDC) | payer MEDICARE, SELFPAY ==
--- OUTSIDE RECORDS SUMMARY | 2024-10-15 07:51 | XMS_ITS | Clinical Summary ---
Author Organization [facility] ity Address [address] [place] [address] Care Team Providers Care Wire Weaver Name Role Phone Kentrell Mccullough MD Primary [...] DX:Anxiety COPD (chronic obstructive pu lmonary disease) ([facility] V24, [facility] V28) 02/18/2019 DX:COPD (chronic o bstructive pulmonary disease) ([facility]) GERD (gastroesophageal reflux disease) 9 DX:GERD (gastroesophageal reflux disease) Psoriasis 02/18/2019 DX:Psoriasis Severe obesity (BMI 35.0-35. 9 with comorbidity) ([facility] V24, [facility] V28) 02/18/2019 DX:Severe obes ity (BMI 35.0- 35.9 with comorbidity) ([facility]) Seizure ([facility] V24, [facility] V28) 02/18/2019 DX:Seizure ([facility]); COMMENT: ? vaso vagal. Tobacco use 02/18/2019 [...] age to complete this topic Care Teams Wire Weaver Relationship Specialty Start Date End Date Kentrell Mccullough MD PCP - General Internal Medicine 12/31/18
[2024-11-17 10:56] VITALS: BMI 32.9
--- NOTE | 2024-11-18 09:35 | P.CONAN_ITS ---
Documented by User: Elisa Collins NP 11/18/24 09:36 HPI - Anesthesia Eval Consult details Narrative: 68yo F for Colonoscopy PMFSH Active Problems Active Problems: All Active Problems Heel pain, bilateral (Acute) Tinea corporis (Acute) Breast cancer screening by mammogram (Acute) Bicipital tendinitis of right shoulder (Acute) Thyromegaly (Acute) Coronary artery calcification seen on CAT scan (Acute) Candidal dermatitis (Acute) Nicotine dependence, cigarettes, uncomplicated (Acute) Sciatica of right side (Acute) GERD (gastroesophageal reflux disease) (Acute) Nasal sinus congestion (Acute) COVID-19 virus infection (Acute) Numbness in feet (Acute) Psoriasis (Acute) Diverticulitis (Acute) Hemoptysis (Acute) Chest pain (Acute) Osteopenia (Acute) Generalized anxiety disorder (Acute) Vitamin D deficiency (Acute) Lateral epicondylitis of left elbow (Acute) Varicose veins of left lower extremity with inflammation (Acute) Foot pain, left (Acute) COPD (chronic obstructive pulmonary disease) (Acute) Obesity (BMI 30-39.9) (Acute) Elevated cholesterol (Acute) HTN (hypertension) (Acute) History of colon polyps (Acute) Hemorrhoids (Acute) Diverticulosis (Acute) Past Medical History Medical History Breast cancer screening by mammogram Nicotine dependence, cigarettes, uncomplicated Hip pain Peripheral neuropathy Tarsal tunnel syndrome Pulmonary nodule Allergic rhinitis Psoriasis Vitamin D deficiency COPD (chronic obstructive pulmonary disease) Obesity (BMI 30-39.9) History of colon polyps Hemorrhoids Diverticulosis Hx of gout History of diverticulitis Arthritis GERD (gastroesophageal reflux disease) Depression Elevated cholesterol HTN (hypertension) Asthma Family History Family History Father Myocardial infarction Mother Lung cancer Maternal Aunt Leukemia Surgical History Surgical History History of appendectomy History of elbow surgery (~2011) History of left oophorectomy (~2008) History of colonoscopy (~2019) History of colectomy (~2008) Social History Social History Household Members: Family Housing: House Alcohol intake: never Patient Tobacco Use Status: Current everyday Tobacco user Tobacco use type: Cigarette Cigarette Packs Per Day: 0.5 Cigarettes Per Day: 10 Years Smoked: onset 14, 1/2ppd x 51 yrs, 25PYH e-Cigarette/Vaping Use: Never Used Second Hand Smoke Exposure: No Use of substances other than those prescribed or required for medical reasons: No Advance Directives: No Advance Directives Information Provided: Yes Patient : No : No Poor oral hygiene: No Current occupational status: retired Cognitive needs: No Hearing needs: No Vision needs: Yes Meds Allergies Allergy/AdvReac Type Severity Reaction Status Date / Time ondansetron (From ZOFRAN) Allergy Severe HIVES Verified 10/13/24 11:30 atorvastatin AdvReac Intermediate leg cramps Verified 10/13/24 11:30 codeine (Codeine) AdvReac Intermediate UPSET Verified 10/13/24 11:30 STOMACH Penicillins AdvReac Intermediate UPSET Verified 10/13/24 11:30 STOMACH Home Medications ?Medication ?Instructions ?Recorded ?Confirmed ?Last Taken ?Type guselkumab 100 mg/mL subcutaneous 100 mg subcut .Q 12 weeks 07/15/24 11/17/24 Unknown History syringe (Tremfya) Exam Height,Weight and Vital Signs: Height 5 ft 2 in Weight 81.647 kg Assessment and Plan Assessment Anesthesia Assessment: Chart Reviewed Documented by User: Shadi Stewart MD 11/19/24 09:27 [facility] Past Medical History Medical History Breast cancer screening by mammogram Nicotine dependence, cigarettes, uncomplicated Hip pain Peripheral neuropathy Tarsal tunnel syndrome Pulmonary nodule Allergic rhinitis Psoriasis Vitamin D deficiency COPD (chronic obstructive pulmonary disease) Obesity (BMI 30-39.9) History of colon polyps Hemorrhoids Diverticulosis Hx of gout History of diverticulitis Arthritis GERD (gastroesophageal reflux disease) Depression Elevated cholesterol HTN (hypertension) Asthma Functional capacity: independent ambulation Family History Family History Father Myocardial infarction Mother Lung cancer Maternal Aunt Leukemia Family history of problems with anesthesia: No Surgical History Surgical History History of appendectomy History of elbow surgery (~2011) History of left oophorectomy (~2008) History of colonoscopy (~2019) History of colectomy (~2008) History of Problems with Anesthesia: No Social History Social History Household Members: Family Housing: House Alcohol intake: never Patient Tobacco Use Status: Current everyday Tobacco user Tobacco use type: Cigarette Cigarette Packs Per Day: 0.5 Cigarettes Per Day: 10 Years Smoked: onset 14, 1/2ppd x 51 yrs, 25PYH e-Cigarette/Vaping Use: Never Used Second Hand Smoke Exposure: No Use of substances other than those prescribed or required for medical reasons: No Advance Directives: No Advance Directives Information Provided: Yes Patient : No : No Poor oral hygiene: No Current occupational status: retired Cognitive needs: No Hearing needs: No Vision needs: Yes Meds Allergies Allergy/AdvReac Type Severity Reaction Status Date / Time ondansetron (From ZOFRAN) Allergy Severe HIVES Verified 10/13/24 11:30 atorvastatin AdvReac Intermediate leg cramps Verified 10/13/24 11:30 codeine (Codeine) AdvReac Intermediate UPSET Verified 10/13/24 11:30 STOMACH Penicillins AdvReac Intermediate UPSET Verified 10/13/24 11:30 STOMACH Home Medications ?Medication ?Instructions ?Recorded ?Confirmed ?Last Taken ?Type guselkumab 100 mg/mL subcutaneous 100 mg subcut .Q 12 weeks 07/15/24 11/17/24 Unknown History syringe (Tremfya) Exam Exam Date and Time: 11/19/2024 Airway Mallampati Class: II TM Dist: >3cm Loose/Missing/Broken Teeth: No Heart: rrr Lungs: cta Other: normal Assessment and Plan Assessment Anesthesia Assessment: Anesthesia Plan Discussed Final Anesthetic Review Family History of Problems with Anesthesia: No History of Problems with Anesthesia: No NPO: Yes ASA Class: II Final Preanesthetic Review: No Changes in Pt Med Stat, Meds/Allgs Chart Reviewed, Consent Obtained/Reviewed and Anes Risks/Benef Reviewed Patient Risk: Low Procedure Risk: Low Anesthetic Plan Disposition: Standard PACU
[2024-11-19 08:31] VITALS: BP 110/71; PULSE 75; RESP 16; TEMP 36.3; O2SAT 96
[2024-11-19 08:32] VITALS: BMI 33.3
[2024-11-19] MEDS: Lactated Ringers 1,000 ML 100 ML IVCONT (08:44)
[2024-11-19] MEDS: Albuterol Sulfate (0.083%) 2.5 MG/3 ML VIAL.NEB INHALE (08:44)
--- NOTE | 2024-11-19 08:45 | P.HPSUR_ITS ---
Pre-Procedural Eval Section A - 24 Hr Update-Section A only Date of Service: 11/19/24 Section B - Complete if H&P > 30 days Chief Complaint: screening Relevant Family History (Specify if Yes): No Relevant Social History: Tobacco Use Present Medications: see Short Stay Collaborative assessment Medical History: Significant History (Psoriasis Vitamin D deficiency COPD (chronic obstructive pulmonary disease) Obesity (BMI 30-39.9) History of colon polyps Hemorrhoids Diverticulosis Hx of gout History of diverticulitis Arthritis GERD (gastroesophageal reflux disease) Depression Elevated cholesterol HTN (h ypertension) Asthma) History of Previous Operations: Relevant previous surgery/procedure and date(s) (History of appendectomy History of elbow surgery (~2011) History of left o ophorectomy (~2008) History of colonoscopy (~2019) History of colectomy (~2008)) Allergies: Allergies Allergy/AdvReac Type Severity Reaction Status Date / Time ondansetron (From ZOFRAN) Allergy Severe HIVES Verified 10/13/24 11:30 atorvastatin AdvReac Intermediate leg cramps Verified 10/13/24 11:30 codeine (Codeine) AdvReac Intermediate UPSET Verified 10/13/24 11:30 STOMACH Penicillins AdvReac Intermediate UPSET Verified 10/13/24 11:30 STOMACH Review of Systems Sugical H&P ROS: Negative: Constitution, Cardiovascular, Respiratory and Gastrointestinal Exam Surgical H&P Exam: Normal: Heart, Normal: Lungs, Normal: Extremities and Normal: Abdomen Plan Diagnosis/Plan: Unchanged I have reviewed the history and physical and performed a pertinent physical examination on my patient. No changes have occurred unless specified. Time Spent With Patient Time: Total time managing care of this patient today ____ minutes.
--- NOTE | 2024-11-19 10:08 | HO.OPN-COLON ---
Colonoscopy Operative Note Operative Note Date of Service: 11/19/24 Narrative: COLONOSCOPY TILL CECUM WITH BIOPSIES AND SNARE POLYPECTOMY Pre-op diagnosis: Surveillance for colon polyps. Post-op diagnosis:? Colon polyps, Cecal AVM, Diverticulosis, hemorrhoids Endoscopist:? Haim Dueñas MD Anesthesia:?MAC Consent: Indications for the procedure and potential complications of bleeding, perforation, reaction to medications and missed diagnosis were discussed with the patient and informed consent was obtained. Instrument: Olympus PCF H 190 L variable stiffness pediatric colonoscope Monitoring: Vital signs and clinical assessment, intermittent blood pressure monitoring, continuous EKG monitoring, Pulse oximetry and Carbon Dioxide monitoring were done throughout the procedure. Please see anesthesia flowsheet. Colon withdrawl time was 22 minutes. Procedure: The patient was placed in the left lateral decubitis position and pre-procedure medications were administered. After a digital rectal examination of the ano-rectum, the video colonoscope was inserted into the rectum and advanced through the colon to the cecum. The colonoscope was slowly withdrawn in a retrograde panoramic fashion and the colon mucosa was carefully examined including a retroflexed view of the rectum. Findings and interventions are described below. Procedure Difficulty: without difficulty Findings: Terminal Ileum: Not evaluated Cecum: A 3 cms non-bleeding AVM in the cecum. Nodular appearing mucosa in the cecum - random biopsies were obtained Ascending Colon: Normal Transverse Colon: Normal Descending Colon: Moderate diverticulosis Sigmoid Colon: Moderate diverticulosis Rectum: A few 3-5 mm diminutive appearing polyps in the distal rectum. One removed with a cold snare and 2nd polyp was removed with a cold biopsy Ano-rectum: Moderate internal hemorrhoids Colon preparation: Good after copious irrigation. [place] Bowel Preparation Scale Right colon; 2 Transverse colon: 2 Left colon; 3 (0 = Unprepared colon segment with mucosa not seen due to solid stool that cannot be cleared. 1 = Portion of mucosa of the colon segment seen, but other areas of the colon segment not well seen due to staining, residual stool and/or opaque liquid. 2 = Minor amount of residual staining, small fragments of stool and/or opaque liquid, but mucosa of colon segment seen well. 3 = Entire mucosa of colon segment seen well with no residual staining, small fragments of stool or opaque liquid) Impression and Post Procedure Diagnosis: Colonoscopy Findings: Non-bleeding cecal AVM Nodular appearing mucosa in the cecum - biopsied. A few 3-5 mm diminutive appearing polyps in the distal rectum. One removed with a cold snare and 2nd polyp was removed with a cold biopsy Moderate diverticulosis seen in the left colon Moderate hemorrhoids on retroflexed exam. Plan: I will send a letter with biopsy results. Repeat Colonoscopy in 3-5 years if polyps are adenomatous and due to history of adenomatous colon polyps. Above findings were reviewed with the patient and relevant handouts were given and the discharge area.
[2024-11-19 10:15] VITALS: BP 113/63; PULSE 75; RESP 18; TEMP 36.3; O2SAT 92
[2024-11-19 10:25] VITALS: BP 105/61; PULSE 69; RESP 16; O2SAT 92
[2024-11-19 10:36] VITALS: BP 111/68; PULSE 67; RESP 18; TEMP 36.8; O2SAT 94
== END 2024-11-19 11:39 | disposition home or self-care (01) ==
PROVIDERS: PCP Internal Medicine; Visit Provider Internal Medicine Gastroenterology
PROC: 0DJD8ZZ Inspection of Lower Intestinal Tract, Via Natural or Artificial Opening Endoscopic (ICD-10-PCS; CPT 45378; principal; 2024-11-19 09:20)
DX: Z12.11 Encounter for screening for malignant neoplasm of colon (principal); K63.5 Polyp of colon; K62.1 Rectal polyp; K55.20 Angiodysplasia of colon without hemorrhage; K57.30 Diverticulosis of large intestine without perforation or abscess without bleeding; K64.8 Other hemorrhoids; Z86.0101 Personal history of adenomatous and serrated colon polyps; I10 Essential (primary) hypertension; E78.00 Pure hypercholesterolemia, unspecified; J44.9 Chronic obstructive pulmonary disease, unspecified; F17.210 Nicotine dependence, cigarettes, uncomplicated
CPT/HCPCS: 45385; 45380; 88305; J2003; J2704; J3010

== ENCOUNTER → 2024-11-19 07:42 | Outpatient (BNV) | payer MEDICARE, SELFPAY | PROVIDERS: PCP Internal Medicine; Visit Provider Internal Medicine Gastroenterology | DX: Z12.11 Encounter for screening for malignant neoplasm of colon (principal); K55.20 Angiodysplasia of colon without hemorrhage; K57.90 Diverticulosis of intestine, part unspecified, without perforation or abscess without bleeding; K64.8 Other hemorrhoids; D12.8 Benign neoplasm of rectum | CPT/HCPCS: 45380; 45385 ==

== ENCOUNTER 2024-12-07 12:53 | Outpatient (AMB) | payer MEDICARE, SELFPAY ==
[2024-12-07 13:00] VITALS: BMI 33.1
--- NOTE | 2024-12-07 13:00 | MHC.OFFVIS ---
Vital Signs 12/07/24 13:00 Height 5 ft 1 in Weight 175 lb BMI 33.1 Intake Visit Reasons: Right shoulder pain and weakness Intake Note: Ann is a 68 year old right hand dominant female who presents with complaints of progressively worsening right shoulder pain and weakness. The patient states that her symptoms have gotten worse over the last 10 years in spite of continued non operative treatments. She has failed the last 6 weeks of conservative treatment which has included Tylenol, Aleve, topical creams, a home exercise program and physical therapy exercises. She reports weakness when lifting her right hand above shoulder height. She has had cortisone injections in the past which gave her temporary relief. Allergies ondansetron (From ZOFRAN) Allergy (Severe, Verified 12/07/24 13:04) HIVES atorvastatin Adverse Reaction (Intermediate, Verified 12/07/24 13:04) leg cramps codeine (Codeine) Adverse Reaction (Intermediate, Verified 12/07/24 13:04) UPSET STOMACH Penicillins Adverse Reaction (Intermediate, Verified 12/07/24 13:04) UPSET STOMACH Medication List - Last Reviewed 12/07/24 by Brooklynn Rodriguez blood pressure monitor (Blood Pressure Kit) As directed bupropion HCl XL 150 mg PO .QD clotrimazole 1% 1 appl topical BID 4 weeks fluticasone furoate-vilanterol 100-25 mcg/dose (Breo Ellipta) 1 ea PO DAILY fluticasone propionate 50 mcg/actuation (Flonase Allergy Relief) 2 sprays intranasal DAILY gabapentin 100 mg PO BEDTIME guselkumab (Tremfya) 100 mg subcut .Q 12 weeks hydrocortisone 2.5% 1 appl topical BID PRN 1 week hydrocortisone 2.5% 1 appl MI BID-QID PRN 15 days lisinopril-hydrochlorothiazide 20-12.5 mg 1 tab PO BID omeprazole 20 mg PO DAILY pravastatin 20 mg PO BEDTIME sertraline 150 mg (1.5 x 100 mg) PO DAILY sucralfate 1 g PO BID 90 days umeclidinium 62.5 mcg/actuation (Incruse Ellipta) 1 inh inhalation BEDTIME PFS Medical History Breast cancer screening by mammogram Nicotine dependence, cigarettes, uncomplicated Hip pain Peripheral neuropathy Tarsal tunnel syndrome Pulmonary nodule Allergic rhinitis Psoriasis Vitamin D deficiency COPD (chronic obstructive pulmonary disease) Obesity (BMI 30-39.9) History of colon polyps Hemorrhoids Diverticulosis Hx of gout History of diverticulitis Arthritis GERD (gastroesophageal reflux disease) Depression Elevated cholesterol HTN (hypertension) Asthma Surgical History History of appendectomy History of elbow surgery (~2011) History of left oophorectomy (~2008) History of colonoscopy (~2019) History of colectomy (~2008) Family History Father Myocardial infarction Mother Lung cancer Maternal Aunt Leukemia Social History Household Members: Family Housing: House Alcohol intake: never Patient Tobacco Use Status: Current everyday Tobacco user Tobacco use type: Cigarette Cigarette Packs Per Day: 0.5 Cigarettes Per Day: 10 Years Smoked: onset 14, 1/2ppd x 49 yrs, 25PYH e-Cigarette/Vaping Use: Never Used Second Hand Smoke Exposure: No Current occupational status: retired Cognitive needs: No Hearing needs: No Vision needs: Yes Physical Exam Const Other: Well-nourished well-developed very friendly female awake alert and oriented x3 in no acute distress Extrem Other: Bilateral upper extremity examination shows good capillary refill, no skin lesions noted, normal sensation light touch Right shoulder examination shows slightly decreased range of motion when compared to her left shoulder, 4/5 strength with supraspinatus testing, positive impingement signs, tenderness over her acromioclavicular joint, no instability Results Reviewed Results Reviewed: X-rays of the patient's right shoulder show severe acromioclavicular joint narrowing, a type 2 acromion, no acute bony abnormalities Assessment & Plan Assessment & Plan (1) Rotator cuff insufficiency of right shoulder: Code(s): M25.311 - Other instability, right shoulder Category: Medical Plan Ms. Renner presents with right shoulder pain and weakness due to impingement syndrome and possible rotator cuff tearing. Thus, I will send the patient for an MRI of her right shoulder for further evaluation. I will see her back once the MRI is completed to discuss the findings and treatment options. She will continue with her [id number] exercises in the meantime to prevent stiffness. Feel free to call me at any time should questions regarding her orthopedic management arise. Thank you very much for asking me to see this very friendly patient. I spent 20 minutes in reviewing the patient's records and imaging studies, seeing the patient and documenting in the medical record. Orders: Orders MR shoulder RT wo con 12/08/24 M25.311 - Other instability, right shoulder Coding Level of Care Code New Pt Level 3 (98448) Complex EM visit Add On G2211 Diagnoses Rotator cuff insufficiency of right shoulder M25.311
--- OUTSIDE RECORDS SUMMARY | 2024-12-07 13:41 | XMS_ITS | Clinical Summary ---
Author Organization [facility] ity Address [address] [place] [address] Care Team Providers Care Cna Gna Name Role Phone Kentrell Mccullough MD Primary [...] DX:Anxiety COPD (chronic obstructive pu lmonary disease) ([facility] V24, [facility] V28) 02/18/2019 DX:COPD (chronic o bstructive pulmonary disease) ([facility]) GERD (gastroesophageal reflux disease) 9 DX:GERD (gastroesophageal reflux disease) Psoriasis 02/18/2019 DX:Psoriasis Severe obesity (BMI 35.0-35. 9 with comorbidity) ([facility] V24, [facility] V28) 02/18/2019 DX:Severe obes ity (BMI 35.0- 35.9 with comorbidity) ([facility]) Seizure ([facility] V24, [facility] V28) 02/18/2019 DX:Seizure ([facility]); COMMENT: ? vaso vagal. Tobacco use 02/18/2019 [...] Panel) 04/10/2022 Colorectal Cancer Screening: Colonoscopy 04/10/2022 Falls Risk Assessment 04/10/2022 Hepatitis C Screening 04/10/2022 Osteoporosis Screening (Bone Density Screening) 04/10/2022 Social Influencers of Health Screening 04/10/2022 Hypertension/CHF/CAD Annual BMP Blood Test 04/24/2022 Depression Screening 05/12/2024 Influenza Vaccine (#1) 2025 HIB Vaccines Aged Out No longer [...] age to complete this topic Care Teams Cna Gna Relationship Specialty Start Date End Date Kentrell Mccullough MD PCP - General Internal Medicine 12/31/18
--- OUTSIDE RECORDS SUMMARY | 2024-12-07 13:41 | XMS_ITS | Patient Health Record ---
Author Organization [facility] Address [address] [place] [address] Care Team Providers Care Founder And Chief Technical Officer Name Role Phone Po Prashant HERNANDES Primary Care Provider Chandrakant Huerta [phone] Allergies Allergen (clinical drug ingredient) Drug/Non Drug Allergy documented on EMR Reaction Allergy Type Onset Date Status Penicillin Unknown Drug Allergy Active Codeine Phosphate Unknown Drug Allergy Active Reason For Referral No Information Plan Of Treatment No Information Insurance Providers Payer Name Payer Address Payer Phone Subscriber Number Group Number Insured Name Patient Relationship to Insured Coverage Start Date Coverage End Date [facility] [address] [place], [place] [id number] [phone] [id number] SEVERIANO RAMOS Self - patient is the insured Medical (General) History Medical History History ICD Code colonoscopy 03-07-2006 hypercholesterolemia Surgical History Surgery Date(Month/Year) right oophorectomy appendectomy
== END 2024-12-07 13:14 | disposition home or self-care (01) ==
LOC: HO.HOS 12:54
PROVIDERS: PCP Internal Medicine; Visit Provider Orthopaedic Surgery
DX: M25.311 Other instability, right shoulder (principal)
CPT/HCPCS: 99203; G2211

== ENCOUNTER → 2024-12-07 12:53 | Outpatient (BNVA) | payer MEDICARE, SELFPAY | PROVIDERS: PCP Internal Medicine; Visit Provider Orthopaedic Surgery | DX: M25.311 Other instability, right shoulder (principal) | CPT/HCPCS: 99202 ==

== ENCOUNTER → 2024-12-21 07:21 | Outpatient (BNV) | payer MEDICARE, SELFPAY | PROVIDERS: PCP Internal Medicine; Visit Provider Radiology Diagnostic Radiology | DX: M75.121 Complete rotator cuff tear or rupture of right shoulder, not specified as traumatic (principal) | CPT/HCPCS: 73221 ==

== ENCOUNTER 2024-12-21 07:22 | Outpatient (REF) | payer MEDICARE, SELFPAY ==
--- NOTE | ~2024-12-21 | MR_ITS ---
CLINICAL HISTORY: M25.311 - Other instability, right shoulder MR right shoulder without gadolinium Comparison: None provided Findings: No acute fractures. No pathologic bone lesions. There are severe degenerative changes of the acromioclavicular joint with bony productive changes and a small joint effusion. Type II acromion. Fluid is seen within the subacromial subdeltoid bursa. There is a small glenohumeral joint effusion. There is a complete full-thickness tear of the supraspinatus tendon at its insertion. There is an interstitial tear of the infraspinatus tendon. There is a partial tear of the insertion of the subscapularis tendon. There is tenosynovitis of the long head of the biceps. Glenoid labrum is intact. There is no significant muscle atrophy. IMPRESSION: 1. There is a complete full-thickness tear of the supraspinatus tendon at its insertion. 2. There is an interstitial tear of the infraspinatus tendon. 3. There is a partial tear at the insertion of the subscapularis tendon. 4. Fluid is seen within the subacromial subdeltoid bursa. 5. There are severe degenerative changes of the acromioclavicular joint with bony productive changes and a small joint effusion. There is impingement of the supraspinatus tendon at the level of the AC joint. 6. There is tenosynovitis of the long head of the biceps. This document has been electronically signed by: Pravin Moe MD on 12/22/2024 12:41:55
--- OUTSIDE RECORDS SUMMARY | 2024-12-21 07:28 | XMS_ITS | Patient Health Record ---
Author Organization [facility] Address [address] [place] [id number] Care Team Providers Care Mft Name Role Phone Po Prashant HERNANDES Primary Care Provider Chandrakant Huerta [phone] Allergies Allergen (clinical drug ingredient) Drug/Non Drug Allergy documented on EMR Reaction Allergy Type Onset Date Status Penicillin Unknown Drug Allergy Active Codeine Phosphate Unknown Drug Allergy Active Reason For Referral No Information Plan Of Treatment No Information Insurance Providers Payer Name Payer Address Payer Phone Subscriber Number Group Number Insured Name Patient Relationship to Insured Coverage Start Date Coverage End Date [facility] [address] [place], [place] [id number] SEVERIANO RAMOS Self - patient is the insured Medical (General) History Medical History History ICD Code colonoscopy 03-07-2006 hypercholesterolemia Surgical History Surgery Date(Month/Year) right oophorectomy appendectomy
== END 2024-12-21 07:23 | disposition home or self-care (01) ==
LOC: HO.MRI 07:22
PROVIDERS: PCP Internal Medicine; Visit Provider Orthopaedic Surgery
DX: M25.311 Other instability, right shoulder (principal)
CPT/HCPCS: 73221

== ENCOUNTER 2024-12-28 12:57 | Outpatient (REF) | payer MEDICARE, SELFPAY ==
--- NOTE | ~2024-12-28 | MM_ITS ---
EXAMINATION: MM SCREENING DIGITAL BREAST TOMOSYNTHESIS, BILATERAL CLINICAL INFORMATION: Screening. Asymptomatic. COMPARISON: Mammography: Comparison is made with available priors TECHNIQUE: Digital breast mammography with tomosynthesis is performed in both the craniocaudal and mediolateral oblique views along with computer-aided detection (CAD). FINDINGS: There are scattered areas of fibroglandular density (ACR BI-RADS breast composition Category b). There are no significant masses, abnormal calcifications, or other abnormalities. MM/MM tomosynthesis screening BI IMPRESSION: No mammographic evidence of malignancy. ASSESSMENT: BI-RADS BI-RADS 1 - Negative RECOMMENDATION: Routine annual mammography screening. 1 year F/U This examination should not preclude the clinical evaluation of a suspicious palpable abnormality. This patient's information was entered into a reminder system with a target due date for their next mammogram. Electronically signed by: Liv Tong DO 12/30/2024 11:20 AM EDT
--- OUTSIDE RECORDS SUMMARY | 2024-12-28 14:05 | XMS_ITS | Patient Health Record ---
Author Organization [facility] Address [address] [place] [id number] Care Team Providers Care Rotary Furnace Tender Name Role Phone Po Prashant HERNANDES Primary Care Provider Chandrakant Huerta [phone] Allergies Allergen (clinical drug ingredient) Drug/Non Drug Allergy documented on EMR Reaction Allergy Type Onset Date Status Penicillin Unknown Drug Allergy Active Codeine Phosphate Unknown Drug Allergy Active Reason For Referral No Information Plan Of Treatment No Information Insurance Providers Payer Name Payer Address Payer Phone Subscriber Number Group Number Insured Name Patient Relationship to Insured Coverage Start Date Coverage End Date [facility] [address] [place], [place] [id number] SEVERIANO RAMOS Self - patient is the insured Medical (General) History Medical History History ICD Code colonoscopy 03-07-2006 hypercholesterolemia Surgical History Surgery Date(Month/Year) right oophorectomy appendectomy
--- OUTSIDE RECORDS SUMMARY | 2024-12-28 14:05 | XMS_ITS | Clinical Summary ---
Author Organization [facility] ity Address [address] [place] [address] Care Team Providers Care Blood Bank Technologist Name Role Phone Kentrell Mccullough MD Primary [...] DX:Anxiety COPD (chronic obstructive pu lmonary disease) ([facility] V24, [facility] V28) 02/18/2019 DX:COPD (chronic o bstructive pulmonary disease) ([facility]) GERD (gastroesophageal reflux disease) 9 DX:GERD (gastroesophageal reflux disease) Psoriasis 02/18/2019 DX:Psoriasis Severe obesity (BMI 35.0-35. 9 with comorbidity) ([facility] V24, [facility] V28) 02/18/2019 DX:Severe obes ity (BMI 35.0- 35.9 with comorbidity) ([facility]) Seizure ([facility] V24, [facility] V28) 02/18/2019 DX:Seizure ([facility]); COMMENT: ? vaso vagal. Tobacco use 02/18/2019 [...] Last Done Comments Breast Cancer Screening 1955 DTaP,Tdap,and Td Vaccines (1 - Tdap) 1972 Zoster Vaccines (1 of 2) 12/06/2003 Pneumococcal Vaccine: 50+ Ye ars (2 of 2 - PCV) 06/10/2015 06/10/2014 COVID-19 Vaccine (1 - 2023-2 5 season) 2024 Depression Screening 05/12/2024 Influenza Vaccine (#1) 2025 RSV Immunization Adult Patie nts (1 - 1-dose 75+ series) 2028 HIB Vaccines Aged Out No longer eligi [...] age to complete this topic Care Teams Blood Bank Technologist Relationship Specialty Start Date End Date Kentrell Mccullough MD PCP - General Internal Medicine 12/31/18
== END 2024-12-28 12:58 | disposition home or self-care (01) ==
LOC: HO.MAMMO 12:57
PROVIDERS: PCP Internal Medicine; Visit Provider Internal Medicine
DX: Z12.31 Encounter for screening mammogram for malignant neoplasm of breast (principal)
CPT/HCPCS: 77063; 77067

== ENCOUNTER → 2024-12-28 13:15 | Outpatient (BNV) | payer MEDICARE, SELFPAY | PROVIDERS: PCP Internal Medicine; Visit Provider Internal Medicine | DX: Z12.31 Encounter for screening mammogram for malignant neoplasm of breast (principal) | CPT/HCPCS: 77063; 77067 ==

== ENCOUNTER 2025-02-02 10:24 | Outpatient (AMB) | payer MEDICARE, SELFPAY ==
--- NOTE | 2025-02-02 10:36 | MHC.OFFVIS ---
Vital Signs 02/02/25 10:38 Height 5 ft 1 in Weight 180 lb BMI 34.0 Intake Visit Reasons: Right shoulder pain and weakness Intake Note: Ann is a 69 year old right hand dominant female who presents with complaints of progressively worsening right shoulder pain and weakness. The patient states that her symptoms have gotten worse over the last 10 years in spite of continued non operative treatments. She has failed the last 6 weeks of conservative treatment which has included Tylenol, Aleve, topical creams, a home exercise program and physical therapy exercises. She reports weakness when lifting her right hand above shoulder height. She has had cortisone injections in the past which gave her temporary relief. Allergies ondansetron (From ZOFRAN) Allergy (Severe, Verified 02/02/25 10:38) HIVES atorvastatin Adverse Reaction (Intermediate, Verified 02/02/25 10:38) leg cramps codeine (Codeine) Adverse Reaction (Intermediate, Verified 02/02/25 10:38) UPSET STOMACH Penicillins Adverse Reaction (Intermediate, Verified 02/02/25 10:38) UPSET STOMACH Medication List - Last Reconciled 02/02/25 by Kyle Holman MD blood pressure monitor (Blood Pressure Kit) As directed bupropion HCl XL 150 mg PO .QD clotrimazole 1% 1 appl topical BID 4 weeks fluticasone furoate-vilanterol 100-25 mcg/dose (Breo Ellipta) 1 ea PO DAILY fluticasone propionate 50 mcg/actuation (Flonase Allergy Relief) 2 sprays intranasal DAILY guselkumab (Tremfya) 100 mg subcut .Q 12 weeks hydrocortisone 2.5% 1 appl topical BID PRN 1 week hydrocortisone 2.5% 1 appl [place] BID-QID PRN 15 days ibuprofen 800 mg PO Q6H PRN lisinopril-hydrochlorothiazide 20-12.5 mg 1 tab PO BID omeprazole 20 mg PO DAILY pravastatin 20 mg PO BEDTIME sertraline 150 mg (1.5 x 100 mg) PO DAILY sucralfate 1 g PO BID 90 days umeclidinium 62.5 mcg/actuation (Incruse Ellipta) 1 inh inhalation BEDTIME PFSH Medical History Breast cancer screening by mammogram Nicotine dependence, cigarettes, uncomplicated Hip pain Peripheral neuropathy Tarsal tunnel syndrome Pulmonary nodule Allergic rhinitis Psoriasis Vitamin D deficiency COPD (chronic obstructive pulmonary disease) Obesity (BMI 30-39.9) History of colon polyps Hemorrhoids Diverticulosis Hx of gout History of diverticulitis Arthritis GERD (gastroesophageal reflux disease) Depression Elevated cholesterol HTN (hypertension) Asthma Surgical History History of appendectomy History of elbow surgery (~2011) History of left oophorectomy (~2008) History of colonoscopy (~2019) History of colectomy (~2008) Family History Father Myocardial infarction Mother Lung cancer Maternal Aunt Leukemia Social History Household Members: Family Housing: House Alcohol intake: never Patient Tobacco Use Status: Current everyday Tobacco user Tobacco use type: Cigarette Cigarette Packs Per Day: 0.5 Cigarettes Per Day: 10 Years Smoked: onset 14, 1/2ppd x 49 yrs, 25PYH e-Cigarette/Vaping Use: Never Used Second Hand Smoke Exposure: No Current occupational status: retired Cognitive needs: No Hearing needs: No Vision needs: Yes Physical Exam Vital Signs: BMI result Body Mass Index 34.0 Const Other: Well-nourished well-developed very friendly female awake alert and oriented x3 in no acute distress Extrem Other: Right shoulder examination shows slightly decreased range of motion when compared to her left shoulder, 4/5 strength with supraspinatus testing, positive impingement signs, tenderness over her acromioclavicular joint, no instability Results Reviewed Results Reviewed: MRI of the patient's right shoulder show severe acromioclavicular joint narrowing, a type 2 acromion, a full-thickness tear of the supraspinatus tendon Assessment & Plan Assessment & Plan (1) Rotator cuff insufficiency of right shoulder: Code(s): M25.311 - Other instability, right shoulder Category: Medical Plan Ms. Renner presents with progressively worsening right shoulder pain and weakness due to impingement syndrome, acromioclavicular joint arthritis and a full-thickness rotator cuff tear. I had a lengthy discussion with the patient regarding the treatment options. At this point the patient appears to be failing continued non operative treatments. The risks and benefits of right shoulder surgery were discussed at length with the patient. The patient is considering undergoing surgery later this year. She will contact my office to pick a surgery date if she chooses to do so. Surgery will involve right shoulder arthroscopic distal clavicle excision, right shoulder arthroscopic acromioplasty and right shoulder mini open rotator cuff repair. She will continue with her [id number] exercises in the meantime to prevent stiffness. Feel free to call me at any time should questions regarding her orthopedic management arise. I spent 22 minutes in reviewing the patient's records and imaging studies, seeing the patient and documenting in the medical record. Coding Level of Care Code Est Pt Level 3 (94859) Complex EM visit Add On G2211 Diagnoses Rotator cuff insufficiency of right shoulder M25.311
[2025-02-02 10:38] VITALS: BMI 34.0
--- OUTSIDE RECORDS SUMMARY | 2025-02-02 12:55 | XMS_ITS | Patient Health Record ---
Author Organization [facility] Address [address] [place] [id number] Care Team Providers Care Policy Service Coordinator Name Role Phone Po Prashant HERNANDES Primary Care Provider Chandrakant Huerta [phone] Allergies Allergen (clinical drug ingredient) Drug/Non Drug Allergy documented on EMR Reaction Allergy Type Onset Date Status Penicillin Unknown Drug Allergy Active Codeine Phosphate Unknown Drug Allergy Active Reason For Referral No Information Plan Of Treatment No Information Insurance Providers Payer Name Payer Address Payer Phone Subscriber Number Group Number Insured Name Patient Relationship to Insured Coverage Start Date Coverage End Date [facility] [address] [place], [place] [id number] SEVERIANO RAMOS Self - patient is the insured Medical (General) History Medical History History ICD Code colonoscopy 03-07-2006 hypercholesterolemia Surgical History Surgery Date(Month/Year) right oophorectomy appendectomy
--- OUTSIDE RECORDS SUMMARY | 2025-02-02 12:55 | XMS_ITS | Clinical Summary ---
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 9 with comorbidity) ([facility] V24, [facility] V28) 02/18/2019 DX:Severe obes ity (BMI 35.0- 35.9 with comorbidity) ([facility]) Seizure ([facility] V24, [facility] V28) [...] (2 of 2 - PCV) 06/10/2015 06/10/2014 Depression Screening 05/12/2024 COVID-19 Vaccine (1 - 2023-2 5 season) 2025 Influenza Vaccine (#1) 2025 RSV Immunization Adult [...] age to complete this topic 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
== END 2025-02-02 11:08 | disposition home or self-care (01) ==
LOC: HO.HOS 10:25
PROVIDERS: PCP Internal Medicine; Visit Provider Orthopaedic Surgery
DX: M25.311 Other instability, right shoulder (principal)
CPT/HCPCS: 99213; G2211

== ENCOUNTER → 2025-02-02 10:24 | Outpatient (BNVA) | payer MEDICARE, SELFPAY | PROVIDERS: PCP Internal Medicine; Visit Provider Orthopaedic Surgery | DX: M25.311 Other instability, right shoulder (principal) | CPT/HCPCS: 99212 ==

== ENCOUNTER 2025-02-08 13:57 | Outpatient (AMB) | payer MEDICARE, SELFPAY ==
[2025-02-08 14:01] VITALS: BP 118/74; PULSE 66; TEMP 36.2; O2SAT 96; BMI 32.9
--- NOTE | 2025-02-08 14:05 | A.OFFPC_ITS ---
Vital Signs 02/08/25 14:01 Height 5 ft 1 in Weight 174 lb 6 oz BMI 32.9 BP 118/74 Blood Pressure Location Lt brachial Position Sitting Pulse 66 Pulse Source Pulse Oximeter Temp 97.1 F Temp Source Temporal Artery Scan Pulse Oximetry (%) 96 Oxygen Delivery Method Room Air Intake Visit Reasons: Hypertension Allergies ondansetron (From ZOFRAN) Allergy (Severe, Verified 02/08/25 14:04) HIVES atorvastatin Adverse Reaction (Intermediate, Verified 02/08/25 14:04) leg cramps codeine (Codeine) Adverse Reaction (Intermediate, Verified 02/08/25 14:04) UPSET STOMACH Penicillins Adverse Reaction (Intermediate, Verified 02/08/25 14:04) UPSET STOMACH Tobacco use date assessed: 02/08/25 Fall risk assessment: No Falls in past year Last assessed Fall Risk: 02/08/25 Dental Screening Dental Screen Date: 02/08/25 Did you have a dental visit in the last 12 months?: Yes Did you have a dental problem in the last 6 months where you did not have access to dental care?: No Was dental information given to patient?: Patient has dentist [facility] Medical History (Updated 02/08/25 @ 14:32 by Prashant Delgado MD) Complete rotator cuff tear Breast cancer screening by mammogram Nicotine dependence, cigarettes, uncomplicated Hip pain Peripheral neuropathy Tarsal tunnel syndrome Pulmonary nodule Allergic rhinitis Psoriasis Vitamin D deficiency COPD (chronic obstructive pulmonary disease) Obesity (BMI 30-39.9) History of colon polyps Hemorrhoids Diverticulosis Hx of gout History of diverticulitis Arthritis GERD (gastroesophageal reflux disease) Depression Elevated cholesterol HTN (hypertension) Asthma Surgical History History of appendectomy History of elbow surgery (~2011) History of left oophorectomy (~2008) History of colonoscopy (~2019) History of colectomy (~2008) Family History Father Myocardial infarction Mother Lung cancer Maternal Aunt Leukemia Social History (Updated 02/08/25 @ 14:31 by Prashant Delgado MD) Household Members: Family Housing: House Alcohol intake: never Patient Tobacco Use Status: Current everyday Tobacco user Tobacco use type: Cigarette Cigarette Packs Per Day: 0.5 Cigarettes Per Day: 5 Years Smoked: onset 14, 1/2ppd x 51 yrs, 25PYH, 01/2025 e-Cigarette/Vaping Use: Never Used Second Hand Smoke Exposure: No Current occupational status: retired Cognitive needs: No Hearing needs: No Vision needs: Yes Questionnaire PHQ-9 Over the last 2 weeks, how often have you been bothered by any of the following problems? 1. Little interest or pleasure in doing things: not at all 2. Feeling down, depressed, or hopeless: not at all 3. Trouble falling or staying asleep, or sleeping too much: not at all 4. Feeling tired or having little energy: not at all 5. Poor appetite or overeating: not at all 6. Feeling bad about yourself - or that you are a failure or have let yourself or your family down: not at all 7. Trouble concentrating on things, such as reading the newspaper or watching television: not at all 8. Moving or speaking so slowly that other people could have noticed. Or the opp osite - being so fidgety or restless that you have been moving around a lot more than usual: not at all 9. Thoughts that you would be better off or of hurting yourself in some way: not at all Total score: 0 Source: Developed by Drs. Chandrakant Sosa, Danae Linder, Han Almodovar and colleagues, with an educational mauro from [employer]. Thrive Questionnaire Date Thrive assessed: 10/13/24 I am a: Patient What is your living situation today?: I have a steady place to live Within the past 12 months, did the food you bought not last and you didn't have the money to get more?: I choose not to answer this question Within the past 12 months, did you worry whether your food would run out before you got money to buy more?: I choose not to answer this question Do you have trouble paying for medicines?: I choose not to answer this question Do you have trouble getting transportation to medical appointments?: I choose not to answer this question Do you have trouble paying your heating and electricity bill?: I choose not to answer this question Do you have trouble taking care of your child, family member or friend?: I choose not to answer this question Do you have trouble with day-to-day activities such as bathing, preparing meals, shopping, managing finances, etc.?: No Are you currently unemployed and looking for a job?: I choose not to answer this question Are you interested in more education?: No Please select the resources that you would like help with: None Currently or been in a relationship where the following occur: I choose not to answer THRIVE Score: 0 AUDIT C Alcohol Use Questionnaire (AUDIT-C) 1. How often do you have a drink containing alcohol?: Never 3. How often do you have six or more drinks on one occasion?: Never Total Score: 0 LISANDRO-7 AMB Questionnaire LISANDRO-7 Date LISANDRO - 7 assessed: 10/13/24 Feeling nervous, anxious, or on edge: 0 = Not at all Not being able to stop or control worryin = Not at all Worrying too much about different things: 0 = Not at all Trouble relaxin = Not at all Being so restless that it is hard to sit still: 0 = Not at all Becoming easily annoyed or irritable: 0 = Not at all Feeling afraid as if something awful might happen: 0 = Not at all Total LISANDRO-7 score (0-4 normal; 5-9 mild; 10-14 moderate; 15-21 severe): 0 Source: Developed by Drs. Chandrakant Sosa, Danae Linder, Han Almodovar and colleagues, with an educational mauro from [employer]. Physical exam (Primary Care) Vital Signs: Last Vital Signs Temp 97.1 F 02/08/25 14:01 Pulse 66 02/08/25 14:01 BP 118/74 02/08/25 14:01 Pulse Ox 96 02/08/25 14:01 Oxygen Delivery Method Room Air 02/08/25 14:01 BMI result Body Mass Index 32.9 Tobacco/Smoking Status: Tobacco use Status Tobacco use date assessed 02/08/25 02/08/25 14:06 Patient Tobacco Use Status Current everyday Tobacco 02/08/25 14:31 Tobacco use type Cigarette 02/08/25 14:31 e-Cigarette/Vaping Use Never Used 02/08/25 14:31 PHQ-9: PHQ-9 Score PHQ-9: Total score 0 02/08/25 14:48 Thrive Assessment: Date of Thrive Assessment Date Thrive assessed 10/13/24 02/08/25 14:06 Currently or been in a relationship where the following occur: I choose not to answer Const General: alert; No acute distress Eyes Conjunctivae: conjunctivae normal Resp Auscultation: clear to auscultation bilaterally Cardio Rate: regular rate Rhythm: regular rhythm GI Inspection: Yes normal to inspection Extrem General: Yes normal to inspection and No edema Immunizations pneumoc 20-zoe conj-dip cr(PF) 0.5 mL IM syringe Performing Provider: Prashant Delgado MD Performing Location: [facility] Administered by: Clau Garvey CMA on 02/08/25 14:48 Dose Route Admin Location Dispensed Lot Number Expiration Date [facility] Health Coordinator 0.5 mL IM Left Deltoid 0.5 mL [id number] 02/08/27 2941-4238-88 [employer] /[employer] Total Dispensed Waste 0.5 mL 0 % VIS Given Date VIS Provided VIS Publication Date 02/08/25 Single Vaccine 24 Eligibility Eligibility Date Funding Source Not [facility] Eligible 02/08/25 Private Coding Level of Care Code Est Pt Level 4 (77880) Complex EM visit Add On G2211 Diagnoses Essential hypertension I10 Hypertension type: essential hypertension Elevated cholesterol E78.00 Coronary artery calcification seen on CAT scan I25.10 Osteopenia M85.80 Obesity (BMI 30-39.9) E66.9 GERD (gastroesophageal reflux disease) K21.9 Generalized anxiety disorder F41.1 Pulmonary emphysema, unspecified emphysema type J43.9 COPD type: emphysema Emphysema type: unspecified Nicotine dependence, cigarettes, uncomplicated F17.210 Rotator cuff insufficiency of right shoulder M25.311 Mixed incontinence N39.46 Assessment & Plan Assessment & Plan (1) HTN (hypertension): Code(s): I10 - Essential (primary) hypertension Category: Medical Qualifiers: Hypertension type: essential hypertension Qualified Code(s): I10 - Essential (primary) hypertension Plan: Continue with blood pressure medication. Decrease salt intake and exercise takes lisinopril hydrochlorothiazide (2) Elevated cholesterol: Code(s): E78.00 - Pure hypercholesterolemia, unspecified Category: Medical Plan: Avoid fried foods, chicken skin, eggs, butter margarine, pastries and meat. Be it pork or beef they have a lot of cholesterol please get blood work done on pravastatin (3) Coronary artery calcification seen on CAT scan: Comment: noted on 04/2024 LDCT Code(s): I25.10 - Atherosclerotic heart disease of [place] coronary artery without angina pectoris Category: Medical Plan: Control the cholesterol, weight, blood pressure, would advised patient aspirin and cholesterol testing (4) Osteopenia: Code(s): M85.80 - Other specified disorders of bone density and structure, unspecified site Category: Medical Plan: Discussed about bone density (5) Obesity (BMI 30-39.9): Code(s): E66.9 - Obesity, unspecified Category: Medical Plan: Diet and exercise (6) GERD (gastroesophageal reflux disease): Code(s): K21.9 - Gastro-esophageal reflux disease without esophagitis Category: Medical Plan: Avoid the foods that causes that usually spicy foods, tomato products, juices, coffee, soda and foods that your sensitive to. After eating do not lie down, allow 3-4 hours before in lie down. And keep the head of bed above 30 degrees to avoid the acid from going up. (7) Generalized anxiety disorder: Comment: Declined counseling 11/2021 Code(s): F41.1 - Generalized anxiety disorder Category: Medical Plan: Continue with present medication as needed (8) COPD (chronic obstructive pulmonary disease): Code(s): J44.9 - Chronic obstructive pulmonary disease, unspecified Category: Medical Qualifiers: COPD type: emphysema Emphysema type: unspecified Qualified Code(s): J43.9 - Emphysema, unspecified Plan: Stop smoking! On Breo and Incruse rinse mouth after using (9) Nicotine dependence, cigarettes, uncomplicated: Comment: (onset 14, 1/2ppd x 51yrs, 25PYH, +fam hx lung ca) 03/2024 Code(s): F17.210 - Nicotine dependence, cigarettes, uncomplicated Category: Medical Plan: Patient is strongly advised to stop smoking! (10) Rotator cuff insufficiency of right shoulder: Code(s): M25.311 - Other instability, right shoulder Category: Medical Plan: Patient has a planned surgery on the right shoulder (11) Mixed incontinence: Code(s): N39.46 - Mixed incontinence Category: Medical Plan: conservative management Plan History of Present Illness The patient is a 69-year-old female presenting with the management of multiple chronic conditions and preventative care. The patient has a history of obesity, with a recent weight loss of 6 pounds noted. She has been diagnosed with hypertension and hypercholesterolemia, both of which are being managed with medication. The patient has Chronic Obstructive Pulmonary Disease (COPD) and is currently on Breo for management. She has a history of smoking, which she is attempting to reduce. The patient has been diagnosed with generalized anxiety disorder and is on sertraline and bupropion for management. She also has osteopenia, with the last bone density scan conducted in June 2021. Coronary artery disease was identified on a CT scan, and the patient is advised to take aspirin as part of the management plan. The patient has a rotator cuff tear with a complete full-thickness tear of the supraspinatus tendon, interstitial tear of the infraspinatus, and partial tear of the subscapularis tendon. Surgical intervention has been recommended, but the patient is undecided about proceeding with the surgery. The patient reports essential tremor, which is not painful but is bothersome. Urinary incontinence is present, with both stress and urge components. The patient is advised to empty the bladder every one to two hours to manage symptoms. Health Maintenance - Colonoscopy performed in 2024 - Mammogram conducted in December 2024 - Bone density scan last performed in June 2021 - Pneumonia vaccination discussed and planned - Shingles vaccination discussed Social History - Smoking: Patient is a smoker, attempting to reduce cigarette consumption. - Weight management: Recent weight loss of 6 pounds noted. Review of Systems - General: Reports weight loss of 6 pounds. - Respiratory: Reports history of COPD, currently managed with Breo. - Musculoskeletal: Reports right shoulder pain and limited movement due to rotator cuff tear. - Neurological: Reports essential tremor, denies pain. - Genitourinary: Reports urinary incontinence with both stress and urge components. Physical Exam Results - MRI (December 21): Complete full-thickness tear of the supraspinatus tendon, interstitial tear of the infraspinatus, partial tear of the subscapularis tendon, severe degenerative changes of the acromioclavicular joint, impingement of the supraspinatus tendon at the level of the AC joint, tenosynovitis of the long head of the biceps. - Colonoscopy (2024): Polyp biopsy showing lymphoid aggregates and hyperplastic colonic polyps. Plan Patient was informed and verbally consented to the use of an ambient scribe for clinic note documentation during this visit. 1. Obesity The patient has been advised to continue weight management strategies, including dietary modifications and increased physical activity, to address obesity. 2. Hypertension Hypertension is being managed with lisinopril and hydrochlorothiazide, and the patient is advised to monitor blood pressure regularly. 3. Hypercholesterolemia The patient is on pravastatin for hypercholesterolemia management and is advised to have regular cholesterol testing. 4. Chronic Obstructive Pulmonary Disease (Copd) COPD is managed with Breo, and the patient is strongly advised to stop smoking to improve respiratory health. 5. Generalized Anxiety Disorder The patient is on sertraline and bupropion for anxiety management, and medication adherence is encouraged. 6. Osteopenia The patient is advised to follow up with a bone density scan, and calcium and vitamin D supplementation may be considered. 7. Coronary Artery Disease Coronary artery disease management includes aspirin therapy and lifestyle modifications to reduce cardiovascular risk. 8. Rotator Cuff Tear Surgical intervention for the rotator cuff tear has been recommended, but the patient is undecided about proceeding with the surgery. 9. Tenosynovitis Of The Long Head Of The Biceps Management of tenosynovitis includes considering physical therapy and avoiding activities that exacerbate symptoms. 10. Essential Tremor The patient is informed that essential tremor is not painful but can be bothersome, and management options can be discussed if symptoms worsen. 11. Urinary Incontinence The patient is advised to empty the bladder every one to two hours and avoid bladder irritants to manage urinary incontinence. Discussion Notes During the visit, I discussed with the patient the management of her chronic conditions, including hypertension, hypercholesterolemia, and COPD. We reviewed the importance of medication adherence and lifestyle modifications, such as smoking cessation and weight management. I also explained the findings of her MRI and the recommended surgical intervention for her rotator cuff tear, emphasizing that the decision to proceed with surgery is hers to make. We discussed the management of her urinary incontinence and essential tremor, and I provided guidance on preventative care measures, including vaccinations and screenings. Patient Instructions - Continue weight management strategies, including diet and exercise. - Monitor blood pressure regularly and adhere to prescribed medications. - Take pravastatin as prescribed and schedule regular cholesterol tests. - Use Breo as directed and reduce smoking to improve COPD symptoms. - Follow up with a bone density scan and consider calcium and vitamin D supplementation. - Take aspirin as advised for coronary artery disease management. - Consider surgical options for rotator cuff tear and discuss further with the orthopedic cast specialist. - Manage urinary incontinence by emptying the bladder regularly and avoiding bladder irritants. - Discuss management options for essential tremor if symptoms worsen. Orders: Orders Pneumococcal 20 Immunization Today Z23 - Encounter for immunization
--- OUTSIDE RECORDS SUMMARY | 2025-02-08 15:19 | XMS_ITS | Clinical Summary ---
Author Organization [facility] ity Address [address] [place] [address] Care Team Providers Care Patient Support Assistant Name Role Phone Kentrell Mccullough MD Primary [...] DX:Anxiety COPD (chronic obstructive pu lmonary disease) ([facility] V24, [facility] V28) 02/18/2019 DX:COPD (chronic o bstructive pulmonary disease) ([facility]) GERD (gastroesophageal reflux disease) 9 DX:GERD (gastroesophageal reflux disease) Psoriasis 02/18/2019 DX:Psoriasis Severe obesity (BMI 35.0-35. 9 with comorbidity) ([facility] V24, [facility] V28) 02/18/2019 DX:Severe obes ity (BMI 35.0- 35.9 with comorbidity) ([facility]) Seizure ([facility] V24, [facility] V28) 02/18/2019 DX:Seizure ([facility]); COMMENT: ? vaso vagal. Tobacco use [...] age to complete this topic Care Teams Patient Support Assistant Relationship Specialty Start Date End Date Kentrell Mccullough MD PCP - General Internal Medicine 12/31/18
--- OUTSIDE RECORDS SUMMARY | 2025-02-08 15:20 | XMS_ITS | Patient Health Record ---
Author Organization [facility] Address [address] [place] [id number] Care Team Providers Care Development Assistant Name Role Phone Po Prashant HERNANDES Primary Care Provider Chandrakant Huerta [phone] Allergies Allergen (clinical drug ingredient) Drug/Non Drug Allergy documented on EMR Reaction Allergy Type Onset Date Status Penicillin Unknown Drug Allergy Active Codeine Phosphate Unknown Drug Allergy Active Reason For Referral No Information Plan Of Treatment No Information Insurance Providers Payer Name Payer Address Payer Phone Subscriber Number Group Number Insured Name Patient Relationship to Insured Coverage Start Date Coverage End Date [facility] [address] [place], [place] [id number] [phone] [id number] SEVERIANO RAMOS Self - patient is the insured Medical (General) History Medical History History ICD Code colonoscopy 03-07-2006 hypercholesterolemia Surgical History Surgery Date(Month/Year) right oophorectomy appendectomy
== END 2025-02-08 14:52 | disposition home or self-care (01) ==
LOC: HO.HMCH 13:58
PROVIDERS: PCP Internal Medicine; Visit Provider Internal Medicine
DX: I10 Essential (primary) hypertension (principal); E78.00 Pure hypercholesterolemia, unspecified; I25.10 Atherosclerotic heart disease of native coronary artery without angina pectoris; J43.9 Emphysema, unspecified; Z68.32 Body mass index [BMI] 32.0-32.9, adult; E66.9 Obesity, unspecified; M85.80 Other specified disorders of bone density and structure, unspecified site; K21.9 Gastro-esophageal reflux disease without esophagitis; F41.1 Generalized anxiety disorder; F17.210 Nicotine dependence, cigarettes, uncomplicated; M25.311 Other instability, right shoulder; Z23 Encounter for immunization

== ENCOUNTER 2025-02-21 10:57 | Outpatient (REF) | payer MEDICARE, SELFPAY ==
--- OUTSIDE RECORDS SUMMARY | 2025-02-21 11:01 | XMS_ITS | Clinical Summary ---
Author Organization [facility] ity Address [address] [place] [address] Care Team Providers Care Latexer Name Role Phone Kentrell Mccullough MD Primary [...] DX:Anxiety COPD (chronic obstructive pu lmonary disease) ([facility] V24, [facility] V28) 02/18/2019 DX:COPD (chronic o bstructive pulmonary disease) ([facility]) GERD (gastroesophageal reflux disease) 9 DX:GERD (gastroesophageal reflux disease) Psoriasis 02/18/2019 DX:Psoriasis Severe obesity (BMI 35.0-35. 9 with comorbidity) ([facility] V24, [facility] V28) 02/18/2019 DX:Severe obes ity (BMI 35.0- 35.9 with comorbidity) ([facility]) Seizure ([facility] V24, [facility] V28) 02/18/2019 DX:Seizure ([facility]); COMMENT: ? vaso vagal. Tobacco use [...] age to complete this topic Care Teams Latexer Relationship Specialty Start Date End Date Kentrell Mccullough MD PCP - General Internal Medicine 12/31/18
== END 2025-02-21 10:58 | disposition home or self-care (01) ==
LOC: CF 10:57
PROVIDERS: PCP Internal Medicine; Visit Provider Internal Medicine
DX: M81.0 Age-related osteoporosis without current pathological fracture (principal); M85.80 Other specified disorders of bone density and structure, unspecified site; E78.00 Pure hypercholesterolemia, unspecified; I25.10 Atherosclerotic heart disease of native coronary artery without angina pectoris; I10 Essential (primary) hypertension; E66.9 Obesity, unspecified; K21.9 Gastro-esophageal reflux disease without esophagitis; F41.1 Generalized anxiety disorder; J43.9 Emphysema, unspecified; F17.210 Nicotine dependence, cigarettes, uncomplicated; M25.311 Other instability, right shoulder; N39.46 Mixed incontinence; Z23 Encounter for immunization
CPT/HCPCS: 90471; 90677; 96127; 99212

== ENCOUNTER 2025-03-31 13:59 | Outpatient (REF) | payer MEDICARE, SELFPAY ==
--- NOTE | ~2025-03-31 | MM_ITS ---
EXAMINATION: DXA BONE DENSITY AXIAL HISTORY: M81.0 - Age-related osteoporosis without current pathological fracture TECHNIQUE: [employer] Dual energy absorptiometry (DEXA) of the lumbar spine, total left hip, and femoral neck was performed. COMPARISON: Comparison is made with the prior examination dated 07/04/2021. FINDINGS: The bone mineral density of the lumbar spine is 1.323 g/cm2, corresponding to a T-score of 1.2, and a Z-score of 4.2. This is indicative of normal bone mineral density. This represents a BMD change of -6.6% compared to the prior exam. This is statistically significant. The bone mineral density of the left total hip is 1.192 g/cm2, corresponding to a T-score of 1.5, and a Z-score of 3.9. This is indicative of normal bone mineral density. This represents a BMD change of -4.5% compared to the prior exam. This is statistically significant. The bone mineral density of the left femoral neck is 1.218 g/cm2, corresponding to a T-score of 1.3, and a Z-score of 3.9. This is indicative of normal bone mineral density. This represents a BMD change of -1.9% compared to the prior exam. MM/XR DEXA axial skeleton IMPRESSION: Based on bone mineral density, and according to World Health Organization (WHO) criteria, the diagnosis is consistent with normal bone mineral density. Statistically, 68% of repeat scans fall within 1 SD (+/- 0.010 g/cm2 for AP spine L1-L4) and 1 SD (+/- 0.012 g/cm2 for femur total) FRAX is a trademark of the [employer] [place] [employer] Met[employer], a World Health Organization (WHO) Collaborating Center. Electronically signed by: Chandrakant Portillo MD 03/31/2025 03:20 PM [facility]
--- OUTSIDE RECORDS SUMMARY | 2025-03-31 19:24 | XMS_ITS | Patient Health Record ---
Author Organization [facility] Address [address] [place] [id number] Care Team Providers Care Yard Associate Name Role Phone Po Prashant HERNANDES Primary Care Provider Chandrakant Huerta [phone] Allergies Allergen (clinical drug ingredient) Drug/Non Drug Allergy documented on EMR Reaction Allergy Type Onset Date Status Codeine Phosphate Unknown Drug Allergy Active Penicillin Unknown Drug Allergy Active Reason For Referral No Information Plan Of Treatment No Information Insurance Providers Payer Name Payer Address Payer Phone Subscriber Number Group Number Insured Name Patient Relationship to Insured Coverage Start Date Coverage End Date [facility] [address] [place], [place] [id number] SEVERIANO RAMOS Self - patient is the insured Medical (General) History Medical History History ICD Code colonoscopy 03-07-2006 hypercholesterolemia Surgical History Surgery Date(Month/Year) right oophorectomy appendectomy
== END 2025-03-31 14:00 | disposition home or self-care (01) ==
LOC: HO.MAMMO 13:59
PROVIDERS: Visit Provider Internal Medicine
DX: M81.0 Age-related osteoporosis without current pathological fracture (principal); M85.80 Other specified disorders of bone density and structure, unspecified site
CPT/HCPCS: 77080

== ENCOUNTER → 2025-03-31 14:00 | Outpatient (BNV) | payer MEDICARE, SELFPAY | PROVIDERS: Visit Provider Radiology Diagnostic Radiology | DX: E28.39 Other primary ovarian failure (principal) | CPT/HCPCS: 77080 ==

== ENCOUNTER 2025-04-06 03:42 | Emergency (ER) | payer MEDICARE, SELFPAY ==
--- NOTE | ~2025-04-06 | CT_ITS ---
CLINICAL HISTORY: LLQ pain, hx diverticulitis CT abdomen and pelvis with IV contrast. COMPARISON: CT abdomen and pelvis dated 01/16/24 at 15:13 EDT FINDINGS: Heavy mitral annular calcifications. No focal hepatic lesion. Normal gallbladder. Spleen is enlarged measuring 15.4 cm in length, similar to prior imaging. Normal pancreas. Normal adrenal glands. Symmetric renal enhancement. No hydronephrosis. Appendix is not seen. No right lower quadrant or pericecal inflammatory changes. Mild colonic stool burden. There are inflammatory changes along the mid descending colon adjacent to several diverticuli. No evidence of abscess or free intraperitoneal air. Multiple normal-sized retroperitoneal lymph nodes, similar to prior imaging. Moderate aortoiliac atherosclerotic vascular calcifications. Normal appearance of the urinary bladder. No adnexal mass. No acute fracture or suspicious bone lesion. Grade 1 anterolisthesis of L4 on L5. Moderate to advanced lumbar spondylosis. IMPRESSION: 1. Mid descending colon diverticulitis. No evidence of abscess or free intraperitoneal air. 2. Splenomegaly, stable. This document has been electronically signed by: Rich Guadalupe MD on 04/06/2025 07:37:46
[2025-04-06 03:54] VITALS: BP 150/79; PULSE 72; RESP 16; TEMP 36.4; O2SAT 95; BMI 32.7
--- NOTE | 2025-04-06 04:04 | ED.ABDPAIN ---
HPI - Abdominal Pain General Chief Complaint: Abdominal Pain Stated Complaint: Diverticulitis Time Seen by Provider: 04/06/25 03:54 Source: patient Mode of arrival: ambulatory Limitations: no limitations History of Present Illness ED Provider: Dr. Winnie Shipman HPI narrative: Patient comes to the emergency room complaining of left lower quadrant pain for 3 days. Patient states that she has had multiple episodes of diverticulitis, has had surgery in the past, no obstructions to her knowledge. Patient complaining of nausea no vomiting, complaining of constipation, no blood in the stool. No fever chills, no UTI symptoms. Related Data Home Medications ?Medication ?Instructions ?Recorded ?Confirmed guselkumab 100 mg/mL subcutaneous 100 mg subcut .Q 12 weeks 07/15/24 02/02/25 syringe (Tremfya) ibuprofen 800 mg tablet 800 mg PO Q6H PRN 02/02/25 02/02/25 Previous Rx's ?Medication ?Instructions ?Recorded blood pressure monitor (Blood #1 ea 06/19/22 Pressure Kit) fluticasone propionate 50 2 spray intranasal DAILY #16 grams 12/25/23 mcg/actuation nasal spray,suspension (Flonase Allergy Relief) hydrocortisone 2.5 % topical cream 1 appl topical BID PRN itching 1 04/12/24 week #20 grams sertraline 100 mg tablet 150 mg (1.5 x 100 mg) PO DAILY 06/01/24 #180 tabs pravastatin 20 mg tablet 20 mg PO BEDTIME #90 tabs 06/09/24 umeclidinium 62.5 mcg/actuation 1 inh inhalation BEDTIME #3 ea 07/07/24 blister powder for inhalation (Incruse Ellipta) hydrocortisone 2.5 % topical cream 1 appl ME BID-QID PRN hemorrhoids 07/15/24 with perineal applicator 15 days #30 grams fluticasone furoate 100 1 ea PO DAILY #180 ea 09/13/24 mcg-vilanterol 25 mcg/dose inhalation powder (Breo Ellipta) omeprazole 20 mg capsule,delayed 20 mg PO DAILY #90 caps 09/17/24 release sucralfate 1 gram tablet 1 g PO BID 90 days #180 tabs 10/11/24 clotrimazole 1 % topical cream 1 appl topical BID 4 weeks #45 10/13/24 grams lisinopril 20 1 tab PO BID #60 tabs 11/16/24 mg-hydrochlorothiazide 12.5 mg tablet bupropion HCl 150 mg 24 hr tablet, 150 mg PO .QD #90 tabs 01/19/25 extended release ciprofloxacin HCl 500 mg tablet 500 mg PO BID 10 days #20 tabs 04/06/25 metronidazole 500 mg tablet 500 mg PO BID 10 days #20 tabs 04/06/25 Allergies Allergy/AdvReac Type Severity Reaction Status Date / Time ondansetron (From ZOFRAN) Allergy Severe HIVES Verified 04/06/25 03:56 atorvastatin AdvReac Intermediate leg cramps Verified 04/06/25 03:56 codeine (Codeine) AdvReac Intermediate UPSET Verified 04/06/25 03:56 STOMACH Penicillins AdvReac Intermediate UPSET Verified 04/06/25 03:56 STOMACH Review of Systems Review of Systems Constitutional : No Weight loss, No Fever, No Chills, No Night Sweats, No Fatigue, No Malaise ENT/Mouth : No Hearing loss, No Ear Pain, No Nasal Congestion, No Sinus Pain, No Hoarseness, No sore throat, No Rhinorrhea, No Swallowing Difficulty Eyes: No Eye Pain, No Swelling, No Redness, No Foreign Body, No Discharge, No Vision Changes Cardiovascular : No Chest Pain, No SOB, No Dyspnea on Exertion, No Orthopnea, No Edema, No Palpitations Respiratory : No Cough, No Sputum, No Wheezing, No Smoke Exposure, No Dyspnea Gastrointestinal : Complaining of Nausea, No Vomiting, No Diarrhea, complaining of chronic constipation, no melena complaining of left lower quadrant pain for 3 days Genitourinary : no irregular bleeding, No Dysuria, No Urinary Frequency, No Hematuria, No Urinary Incontinence, No Urgency, No Flank Pain, No Urinary Flow Changes, No Hesitancy Musculoskeletal : No joint pain, No Myalgias, No Joint Swelling Skin : No Skin Lesions, No rash Neuro : No Weakness, No Numbness, No Paresthesias, No Loss of Consciousness, No Dizziness, No Headache Psych : No Anxiety/Panic, No Depression, No SI/HI/AH/VH, No Social Issues, Heme/Lymph: No Bruising, No Bleeding,No Lymphadenopathy Endocrine : No Polyuria, No Polydipsia, No Temperature Intolerance PMFSH Past Medical History Medical History Complete rotator cuff tear Breast cancer screening by mammogram Nicotine dependence, cigarettes, uncomplicated Hip pain Peripheral neuropathy Tarsal tunnel syndrome Pulmonary nodule Allergic rhinitis Psoriasis Vitamin D deficiency COPD (chronic obstructive pulmonary disease) Obesity (BMI 30-39.9) History of colon polyps Hemorrhoids Diverticulosis Hx of gout History of diverticulitis Arthritis GERD (gastroesophageal reflux disease) Depression Elevated cholesterol HTN (hypertension) Asthma Surgical History History of appendectomy History of elbow surgery (~2011) History of left oophorectomy (~2008) History of colonoscopy (~2019) History of colectomy (~2008) Family History Family History Father Myocardial infarction Mother Lung cancer Maternal Aunt Leukemia Social History Social History (Updated 02/08/25 @ 14:31 by Prashant Delgado MD) Household Members: Family Housing: House Alcohol intake: never Patient Tobacco Use Status: Current everyday Tobacco user Tobacco use type: Cigarette Cigarette Packs Per Day: 0.5 Cigarettes Per Day: 5 Years Smoked: onset 14, 1/2ppd x 51 yrs, 25PYH, 01/2025 e-Cigarette/Vaping Use: Never Used Second Hand Smoke Exposure: No Advance Directives: No Advance Directives Information Provided: Yes Current occupational status: retired Cognitive needs: No Hearing needs: No Vision needs: Yes Physical Exam ED Exam Exam: Appearance: Alert. Oriented X3. No acute distress. Eyes: Pupils equal, round and reactive to light. ENT: Pharynx normal. Neck: Normal inspection. Neck supple. No lymph nodes noted. No crepitus CVS: Normal heart rate and rhythm. Pulses normal. Normal S1 and S2 Respiratory: No respiratory distress. Breath sounds normal. No Wheezing. No rales Abdomen: Soft , slightly distended, pain to palpation over the left lower quadrant, no rebound or guarding.. Skin: Skin warm and dry. Normal skin color. Normal skin turgor. Extremities: No lower extremity edema. No Lacerations. No Rash Neuro: Oriented X 3. No motor deficit. No sensory deficit. Moving all extremities. No slurred speech. CN 2 through 12 grossly intact Psych: calm, cooperative, normal affect Vital Signs: Vital Signs - 24 hr 04/06/25 03:54 04/06/25 05:55 04/06/25 07:20 Temperature 97.5 F 97.7 F 97.6 F Pulse Rate 72 57 61 Respiratory Rate 16 18 16 Blood Pressure 150/79 H 128/57 L 133/56 L Pulse Oximetry 95 93 96 Oxygen Delivery Method Room Air Room Air Room Air BMI result Body Mass Index 32.7 Course Course Course Narrative: Patient receiving IV fluids, morphine and Compazine. All of patient's labs and imaging pending. Reevaluation(s) Reevaluation #1: 6:56 AM 04/06/2025 (Dr. Theodore Morales): I, Dr. Morales have take over the care of this patient, I reviewed pertinent blood work and imaging, re-evaluated the patient when appropriate. 7:41 AM 04/06/2025 (Dr. Theodore Morales): CT with mild descending diverticulitis, discussed with the patient, see my discharge instructions IMPRESSION: 1. Mid descending colon diverticulitis. No evidence of abscess or free intraperitoneal air. 2. Splenomegaly, stable. Medical Decision Making Medical Decision Making [facility] Narrative: My interpretation of labs: No significant acute abnormality in patient's hematology or chemistry, normal LFTs, normal lipase Pending: Urinalysis CT scan of the abdomen/pelvis Sign-out given to my colleague Dr. Hansen Differential Diagnosis Differential Diagnoses: The differential diagnosis associated with the presentation includes (Diverticulitis, colitis, pyelonephritis, ureterolithiasis) Admission/Observation Consideration of admission/observation: Escalation of care including admission/observation considered (Given patient's initial presentation and medical history and age, observation has been considered) Lab Data [facility] Lab Attestation statement: I reviewed the patient's lab results. 04/06/25 04:05 04/06/25 04:05 Labs: Lab Results 04/06/25 04/06/25 Range/Units 04:05 07:03 WBC 10.0 (4.8-10.8) X10*3/uL RBC 4.91 (4.20-5.50) X10*6/uL Hgb 14.5 (12.0-16.0) g/dl Hct 40.7 (37.0-47.0) % MCV 82.9 (80.0-98.0) fL MCH 29.5 (27.0-33.0) pg MCHC 35.6 H (31.0-35.0) g/dl RDW 13.8 (11.0-16.0) % Plt Count 136 L (160-400) X10*3/uL MPV 9.3 L (9.4-12.3) fL Immature Gran % (Auto) 0.2 (0.0-0.4) % Neut % (Auto) 75.7 H (45-73) % Lymph % (Auto) 14.9 L (20-40) % [place] % (Auto) 7.8 (2-11) % Eos % (Auto) 1.1 (0-4) % Baso % (Auto) 0.3 (0-2) % Lymph # (Auto) 1.5 (1.2-4.9) X10*3/uL [place] # (Auto) 0.8 (0.1-1.2) X10*3/uL Eos # (Auto) 0.1 (0.0-0.4) X10*3/uL Baso # (Auto) 0.0 (0.0-0.2) X10*3/uL Abs Immat Gran (auto) 0.02 (0.00-0.03) X10*3/uL Absolute Neuts (auto) 7.6 (2.0-8.3) x10*3/uL Absolute Nucleated RBC 0.000 (0.0-0.012) X10*3/uL Nucleated RBC % (auto) 0.0 (0.0-0.2) /100WBC Sodium 139 (135-145) mmol/L Potassium 3.6 (3.3-5.1) mmol/L Chloride 108 (96-108) mmol/L Carbon Dioxide 22 (22-29) mmol/L Anion Gap 13 (12-20) BUN 27 H (9-16) mg/dL Creatinine 1.04 (0.5-1.4) mg/dL Estim Creat Clear Calc 48.9 Estimated GFR 52 Random Glucose 113 (60-115) mg/dL Calcium 9.8 (8.4-10.2) mg/dL Total Bilirubin 0.6 (0.0-1.0) mg/dL AST 22 (5-31) U/L ALT 17 (0-31) U/L Alkaline Phosphatase 89 (39-117) U/L Total Protein 7.0 (6.5-8.0) g/dL Albumin 4.3 (3.5-5.0) g/dL Lipase 30 (8-78) U/L Urine Color Yellow Urine Appearance Clear Urine pH 5.5 (5.0-9.0) Ur Specific [place] 1.025 (1.005-1.025) Urine Protein Negative (Neg-Trace) mg/dL Urine Glucose (UA) Negative (Negative) mg/dL Urine Ketones Negative (Negative) mg/dL Urine Blood Negative (Negative) Urine Nitrite Negative (Negative) Ur Leukocyte Esterase Small (1+) H (Negative) Urine RBC 0-2 (0-2) /HPF Urine WBC 6-10 H (0-5) /HPF Ur Squamous Epith Cells 0-2 (0-2) /HPF Urine Bacteria 4+ (None Seen) Hyaline Casts 0-2 (0-2) /LPF Medications Administered Discontinued Medications Generic Name Dose Route Start Last Admin Trade Name Hussain PRN Reason Stop Dose Admin Sodium Chloride 1,000 mls @ 999 mls/hr 04/06/25 04:01 04/06/25 07:00 Ns IVCONT 04/06/25 05:01 Infused .Q1H1M ONE Infusion Iohexol 85 ml 04/06/25 05:37 04/06/25 05:38 Iohexol 350 Mg/Ml 100 Ml Infus..Btl IV 04/06/25 05:38 85 ml ONCE ONE Administration Morphine Sulfate 2 mg 04/06/25 04:01 04/06/25 04:44 Morphine Sulfate 4 Mg/Ml Cartridge IVPUSH 04/06/25 04:02 2 mg ONCE ONE Administration Protocol Prochlorperazine Edisylate 10 mg 04/06/25 04:02 04/06/25 04:44 Prochlorperazine Edisylate 10 Mg/2 Ml Vial IVPUSH 04/06/25 04:03 10 mg ONCE ONE Administration Critical Care Time Critical Care Time Critical Care Time: Yes Total Critical Care Time: 35 Attestation: I have personally provided critical care time. Time includes review of lab data, radiology results, discussion with consultants, and monitoring for potential decompensation. Intervention performed as documented. Discharge Plan Discharge Clinical Impression: Abdominal pain, Diverticulosis Patient Disposition: Home, Self-Care Instructions: Diverticulosis (ED) Additional Instructions: Imaging reveals mild diverticulitis, without complications, treatment with ciprofloxacin 500 mg and metronidazole 500 mg twice a day,On metronidazole, do NOT drink alcohol.? Call your provider if a metallic taste, loss of appetite, or nausea makes it difficult for you to eat.? Call your provider promptly if tingling develops in your hands or feet after you have taken a total of 30 grams or more of metronidazole. ? I recommend ibuprofen 400 mg every 6 hours needed for pain or Tylenol 975 mg every 6 hours needed for pain usually takes 48-72 hours for the antibiotics to start improving the symptoms, please follow up with the your PCP any other issues concerns come back to the ER Prescriptions: New metronidazole 500 mg tablet 500 mg PO BID 10 Days Qty: 20 0RF ciprofloxacin HCl 500 mg tablet 500 mg PO BID 10 Days Qty: 20 0RF No Action fluticasone propionate [Flonase Allergy Relief] 50 mcg/actuation spray,suspension 2 spray intranasal DAILY Qty: 16 0RF Rx Instructions: administer into each nostril sertraline 100 mg tablet 150 mg PO DAILY Qty: 180 3RF Rx Instructions: 06/2022 has been taking 100 mg only ., so will increase to 150 mg pravastatin 20 mg tablet 20 mg PO BEDTIME Qty: 90 3RF Breo Ellipta 100-25 mcg/dose blister with device 1 ea PO DAILY Qty: 180 3RF omeprazole 20 mg capsule,delayed release(DR/EC) 20 mg PO DAILY Qty: 90 2RF sucralfate 1 gram tablet 1 g PO BID 90 Days Qty: 180 2RF lisinopril-hydrochlorothiazide 20-12.5 mg tablet 1 tab PO BID Qty: 60 4RF bupropion HCl 150 mg tablet extended release 24 hr 150 mg PO .QD Qty: 90 1RF (DME) blood pressure monitor [Blood Pressure Kit] Kit See Rx Instructions .ROUTE .MEDSUPPLY Qty: 1 0RF Rx Instructions: As directed hydrocortisone 2.5 % cream 1 appl topical BID PRN (Reason: itching) 7 Days Qty: 20 0RF Rx Instructions: To be used in combination with topical antifungal for itching ibuprofen 800 mg tablet 800 mg PO Q6H PRN Incruse Ellipta 62.5 mcg/actuation blister with device 1 inh inhalation BEDTIME Qty: 3 3RF clotrimazole 1 % cream 1 appl topical BID 28 Days Qty: 45 2RF Tremfya 100 mg/mL syringe 100 mg subcut .Q 12 weeks hydrocortisone 2.5 % cream with perineal applicator 1 appl ME BID-QID PRN (Reason: hemorrhoids) 15 Days Qty: 30 3RF Referrals: Po,Prashant Fabian MD [Primary Care Provider, Internal Medicine] - 10 days Clinical Impression: Diverticulosis; Abdominal pain Print Language: Romansh
[2025-04-06 04:11] LABS: Hematocrit 40.7 % (37.0-47.0); Hemoglobin 14.5 g/dl (12.0-16.0); Imm Gran Abs Auto 0.02 X10*3/uL (0.00-0.03); Imm Gran Pct Auto 0.2 % (0.0-0.4); Lymphocytes Absolute Auto 1.5 X10*3/uL (1.2-4.9); MANUAL DIFF FLAG NO; Mean Corpuscular HGB Conc 35.6 g/dl (31.0-35.0); Mean Corpuscular Hemoglobin 29.5 pg (27.0-33.0); Mean Corpuscular Volume 82.9 fL (80.0-98.0); NRBC Abs Auto 0.000 X10*3/uL (0.0-0.012); NRBC Pct Auto 0.0 /100WBC (0.0-0.2); Platelet Count 136 X10*3/uL (160-400); Red Blood Count 4.91 X10*6/uL (4.20-5.50); White Blood Count 10.0 X10*3/uL (4.8-10.8)
--- OUTSIDE RECORDS SUMMARY | 2025-04-06 04:12 | XMS_ITS | Patient Health Record ---
Author Organization [facility] Address [address] [place] [id number] Care Team Providers Care Shoer Name Role Phone Po Prasahnt HERNANDES Primary Care Provider Chandrakant Huerta [phone] Allergies Allergen (clinical drug ingredient) Drug/Non Drug Allergy documented on EMR Reaction Allergy Type Onset Date Status Codeine Phosphate Unknown Drug Allergy Active Penicillin Unknown Drug Allergy Active Reason For Referral No Information Plan Of Treatment No Information Insurance Providers Payer Name Payer Address Payer Phone Subscriber Number Group Number Insured Name Patient Relationship to Insured Coverage Start Date Coverage End Date [facility] [address] [place], [place] [id number] [phone] [id number] SEVERIANO RAMOS Self - patient is the insured Medical (General) History Medical History History ICD Code colonoscopy 03-07-2006 hypercholesterolemia Surgical History Surgery Date(Month/Year) right oophorectomy appendectomy
--- OUTSIDE RECORDS SUMMARY | 2025-04-06 04:12 | XMS_ITS | Clinical Summary ---
Author Organization [facility] it[facility] Address [address] [place] [address] Care Team Providers Care Developmental Education Instructor Name Role Phone Kentrell Mccullough MD Primary [...] (chronic obstructive pu lmonary disease) ([facility] V24, [facility] V28) 02/18/2019 DX:COPD (chronic o bstructive pulmonary disease) ([facility]) GERD (gastroesophageal reflux disease) 9 DX:GERD (gastroesophageal reflux disease) Psoriasis 02/18/2019 DX:Psoriasis Severe obesity (BMI 35.0-35. 9 with comorbidity) ([facility] V24, [facility] V28) 02/18/2019 DX:Severe obes ity (BMI 35.0- 35.9 with comorbidity) ([facility]) Seizure ([facility] V24, [facility] V28) 02/18/2019 DX:Seizure ([facility]); COMMENT: ? vaso vagal. Tobacco use [...] Used Date Smoking Tobacco: Some Days Cigarettes 55.9 Started: 05/12/1971 Smokeless Tobacco: Never Alcohol Use [...] Depression Screening 05/12/2024 COVID-19 Vaccine (1 - 2024-2 6 season) 2025 Influenza Vaccine (#1) 2025 RSV [...] age to complete this topic Care Teams Developmental Education Instructor Relationship Specialty Start Date End Date Kentrell Mccullough MD PCP - General Internal Medicine 12/31/18
[2025-04-06 04:39] LABS: Alanine Aminotransferase 17 U/L (0-31); Albumin Level 4.3 g/dL (3.5-5.0); Alkaline Phosphatase 89 U/L (39-117); Anion Gap 13 (12-20); Aspartate Amino Transferase 22 U/L (5-31); Blood Urea Nitrogen 27 mg/dL (9-16); Calcium 9.8 mg/dL (8.4-10.2); Carbon Dioxide 22 mmol/L (22-29); Chloride 108 mmol/L (96-108); Creatinine Clr Calc Pharmacy 48.9; Estimated Glomerular Filt Rate 52; Lipase 30 U/L (8-78); Potassium 3.6 mmol/L (3.3-5.1); Sodium 139 mmol/L (135-145); Total Protein 7.0 g/dL (6.5-8.0)
[2025-04-06] MEDS: iohexoL 350 MG/ML 100 ML INFUS..BTL 85 ML IV (05:38)
[2025-04-06 05:55] VITALS: BP 128/57; PULSE 57; RESP 18; TEMP 36.5; O2SAT 93
[2025-04-06 07:15] LABS: Appearance Urine Clear; Glucose Urine UA Negative (Negative); PH 5.5 (5.0-9.0); Specific Gravity - Urine 1.025 (1.005-1.025); UMIC TRIGGER UACC YES
[2025-04-06 07:20] VITALS: BP 133/56; PULSE 61; RESP 16; TEMP 36.4; O2SAT 96
[2025-04-06 07:20] LABS: UACC Culture Trigger YES
[2025-04-06 08:09] VITALS: BP 133/56; PULSE 61; RESP 16; TEMP 36.4; O2SAT 96
== END 2025-04-06 08:10 | disposition home or self-care (01) ==
PROVIDERS: Emergency Provider Emergency Medicine; PCP Internal Medicine
DX: K57.32 Diverticulitis of large intestine without perforation or abscess without bleeding (principal); R10.9 Unspecified abdominal pain; I10 Essential (primary) hypertension; J44.9 Chronic obstructive pulmonary disease, unspecified; Z88.8 Allergy status to other drugs, medicaments and biological substances
CPT/HCPCS: 36415; 74177; 80053; 81001; 83690; 85025; 87086; 87088; 87186; 96361; 96374; 96375; 96376; 99285; J0737; J1885; J2270; Q9967

== ENCOUNTER → 2025-04-06 04:01 | Outpatient (BNV) | payer MEDICARE, SELFPAY | PROVIDERS: Emergency Provider Emergency Medicine; PCP Internal Medicine; Visit Provider Radiology Diagnostic Radiology | DX: K57.32 Diverticulitis of large intestine without perforation or abscess without bleeding (principal); R16.1 Splenomegaly, not elsewhere classified | CPT/HCPCS: 74177 ==

== ENCOUNTER 2025-04-15 13:25 | Outpatient (REF) | payer MEDICARE, SELFPAY ==
--- NOTE | ~2025-04-15 | CT_ITS ---
EXAMINATION: CT LUNG SCREENING HISTORY: F17.210 - Nicotine dependence, cigarettes, uncomplicated TECHNIQUE: Low dose axial images were obtained from the sternal notch to upper abdomen without IV contrast per standard departmental protocol. Sagittal and coronal reformatted images were also obtained and reviewed. One or more of the following techniques was used for dose reduction: Automated exposure control, adjustment of the mA and/or kV according to patient size, use of iterative reconstruction technique. DLP: 68 mGy-cm COMPARISON: Comparison is made with the prior examination dated 04/05/2024. FINDINGS: Lung nodules: Again seen is a 3 mm nodule in the left upper lobe (series 5, image 64). No new pulmonary nodules are identified. Emphysema: none Coronary Calcification: severe Aortic Arch Calcification: moderate Potentially Significant Incidentals : none Additional Chest Findings: There is no pleural or pericardial effusion. No mediastinal or axillary lymphadenopathy is identified. There is mitral annular calcification. Visualized upper abdomen: The visualized portions of the liver, spleen, and adrenals have an unremarkable unenhanced appearance. CT/CT lung screening IMPRESSION: No suspicious pulmonary nodules are identified. LUNG-RADS ASSESSMENT: Lung-RADS 2: Benign MANAGEMENT: Continue annual screening with LDCT in 12 months Category S: N/A Electronically signed by: Chandrakant Portillo MD 04/15/2025 03:34 PM [facility]
== END 2025-04-15 13:26 | disposition home or self-care (01) ==
LOC: HO.CT 13:25
PROVIDERS: PCP Internal Medicine; Visit Provider Physician Assistant Medical
DX: F17.210 Nicotine dependence, cigarettes, uncomplicated (principal)
CPT/HCPCS: 71271

== ENCOUNTER → 2025-04-15 13:26 | Outpatient (BNV) | payer MEDICARE, SELFPAY | PROVIDERS: PCP Internal Medicine; Visit Provider Radiology Diagnostic Radiology | DX: F17.210 Nicotine dependence, cigarettes, uncomplicated (principal) | CPT/HCPCS: 71271 ==